=== PATIENT | male | born 1955 | race Caucasian/White ===

== ENCOUNTER 2018-05-15 00:28 | Inpatient (IN) ==
[2018-05-15] MEDS ORDERED: Thiamine Inj 100 MG in Sodium Chlor 0.9% Inj 100 ML IV.SIG ONE (03:33)
[2018-05-15 04:46] LABS: Baso # (Auto) 0.1 th/mm3 (0.0-0.2); Baso % (Auto) 0.5 % (0.0-2.0); Eos % (Auto) 0.2 % (0.0-4.0); Hematocrit 43.5 % (39.0-51.0); Hemoglobin 14.9 gm/dL (13.0-17.0); Lymph # (Auto) 3.6 th/mm3 (1.0-4.8); Lymph % (Auto) 19.8 % (9.0-44.0); Mean Corpuscular HGB Conc 34.3 % (32.0-36.0); Mean Corpuscular Hemoglobin 33.8 pg (27.0-34.0); Mean Corpuscular Volume 98.6 fL (80.0-100.0); Mean Platelet Volume 9.8 fL (7.0-11.0); Mono # (Auto) 1.9 th/mm3 (0.0-0.9); Mono % (Auto) 10.4 % (0.0-8.0); Neut # (Auto) 12.4 th/mm3 (1.8-7.7); Neut % (Auto) 69.1 % (16.0-70.0); Platelet Count 362 th/mm3 (150-450); Red Blood Count 4.41 mil/mm3 (4.50-5.90); Red Cell Distribution Width 12.8 % (11.6-17.2)
[2018-05-15 05:06] LABS: Alanine Aminotransferase 46 U/L (12-78); Albumin 4.1 g/dL (3.4-5.0); Anion Gap 14 meq/L (5-15); Aspartate Aminotransferase 31 U/L (15-37); Blood Urea Nitrogen 43 mg/dL (7-18); Calcium 9.8 mg/dL (8.5-10.1); Carbon Dioxide 22.7 meq/L (21.0-32.0); Chloride 105 meq/L (98-107); Glomerular Filtration Rate 38 mL/min (>89); Glucose,Random 125 mg/dL (74-106); Potassium 4.3 meq/L (3.5-5.1); Sodium 142 meq/L (136-145)
[2018-05-15 05:16] LABS: Alkaline Phosphatase 79 U/L (45-117); Thyroid Stimulating Hormone 0.526 uIU/mL (0.358-3.740); Total Protein 8.3 g/dL (6.4-8.2)
--- NOTE | 2018-05-15 06:28 | ED ---
HPI General Chief Complaint: Altered Mental Status Stated Complaint: Psych/VCFR Time Seen by Provider: 05/15/18 06:18 Source: patient and EMS Mode of arrival: ambulatory Limitations: no limitations History of Present Illness HPI Narrative: 62-year-old white male presents emergency department under [place] act by [employer]. Patient was found acutely confused this evening in his car. The patient here is not making any sense. He appears to be acutely confused/ psychotic. He is rambling and not making sense. He denies any suicidal or homicidal ideation. No more meaningful history is obtainable. Symptoms are severe. No alleviating factors. Unknown exacerbating factor. Related Data Home Medications Medication Instructions Recorded Confirmed No Known Home Medications 05/15/18 05/15/18 Allergies Allergy/AdvReac Type Severity Reaction Status Date / Time No Allergy Information Allergy Unverified 05/15/18 00:54 Available Review of Systems ROS Unobtainable unobtainable due to mental status PMFSH Medical History Medical History Medical history unknown (Acute) Social History Social History Substance History: No History of Abuse and Unable to Obtain Second Hand Smoke Exposure: No Smoking Status: Cognitive impairment How Often Do You Have a Drink Containing Alcohol: Unable to Obtain Recent Travel in [facility] within the Last 8 Weeks: Yes Recent Out of Country Travel within the Last 8 Weeks: No Immunization History Tetanus Immunization: <5 Years Hx Influenza Vaccine This Season: Yes Exam Narrative Exam Narrative: GENERAL: Well-nourished, well-developed patient. SKIN: Warm and dry. HEAD: Normocephalic and atraumatic. EYES: No scleral icterus. No injection or drainage. ENT: No nasal drainage noted. Mucous membranes pink. Airway patent. NECK: Supple, trachea midline. Moves head freely without obvious discomfort. CARDIOVASCULAR: Regular rate and rhythm without murmurs, gallops, or rubs. RESPIRATORY: Breath sounds equal bilaterally. No accessory muscle use. GASTROINTESTINAL: Abdomen soft, non-tender, nondistended. EXTREMITIES: No cyanosis or edema. BACK: Nontender without obvious deformity. No CVA tenderness. NEURO: Patient is alert and oriented. no sensorimotor deficits. Nonfocal. Normal speech. PSYCH: Patient is acutely psychotic and not making sense. Course Hospital Course: Patient is medically clear. I suspect his white count is from demargination. Reevaluation(s) Reevaluation #1: Patient awaiting psychiatric evaluation, initially brought in under [place] Act for acute altered mental status. The patient has been unable to provide a urine sample as he is uncooperative with RN instructions; if he is unable to provide a sample within the next 30 minutes, he will need to be straight cathed. BUN/ creat elevated (unclear if this is baseline), WBCs 18K but afebrile, will add UA with reflex culture. Patient's speech is tangential and disorganized but he is easily re-directable. No home meds listed that need to be continued at this time. Time: 13:46 Initial Documented Vital Signs Temperature 97.9 F 05/15/18 00:45 Pulse Rate 76 05/15/18 00:45 Respiratory Rate 16 05/15/18 00:45 Blood Pressure 150/118 H 05/15/18 00:45 Pulse Oximetry 100 05/15/18 00:45 Last Documented Vital Signs Temperature 97.4 F L 05/17/18 09:10 Pulse Rate 68 05/17/18 09:10 Respiratory Rate 20 05/17/18 09:10 Blood Pressure 148/62 H 05/17/18 09:10 Pulse Oximetry 100 05/17/18 09:10 Medical Decision Making MDM Narrative Medical decision making narrative: MDM: High Differential diagnoses: Schizophrenia, schizoaffective disorder, bipolar, anxiety, depression, adjustment reaction, mood disorder NOS, ODD, depressive disorder NOS, dementia, dementia with agitation, psychosis NOS, substance induced mood disorder, DMDD, Asperger syndrome, infection,electrolyte abnormality, malingering. Mental health screening discussed with the patient. Psychiatric screen ordered. Lab Data Result diagrams: 05/17/18 06:45 05/17/18 06:45 Lab Results 05/15/18 05/15/18 05/15/18 Range/Units 04:35 04:35 04:35 WBC 18.0 H (4.0-11.0) th/mm3 RBC 4.41 L (4.50-5.90) mil/mm3 Hgb 14.9 (13.0-17.0) gm/dL Hct 43.5 (39.0-51.0) % MCV 98.6 (80.0-100.0) fL MCH 33.8 (27.0-34.0) pg MCHC 34.3 (32.0-36.0) % RDW 12.8 (11.6-17.2) % Plt Count 362 (150-450) th/mm3 MPV 9.8 (7.0-11.0) fL Neut % (Auto) 69.1 (16.0-70.0) % Lymph % (Auto) 19.8 (9.0-44.0) % [place] % (Auto) 10.4 H (0.0-8.0) % Eos % (Auto) 0.2 (0.0-4.0) % Baso % (Auto) 0.5 (0.0-2.0) % Neut # (Auto) 12.4 H (1.8-7.7) th/mm3 Lymph # (Auto) 3.6 (1.0-4.8) th/mm3 [place] # (Auto) 1.9 H (0.0-0.9) th/mm3 Eos # (Auto) 0.0 (0.0-0.4) th/mm3 Baso # (Auto) 0.1 (0.0-0.2) th/mm3 WBC Differential . Differential Comment Auto diff final ESR (0-20) mm/hr PT (9.8-11.6) sec INR Ratio Puncture Site Patient Temperature O2 Saturation (90-100) % ABG pH (7.380-7.420) ABG pCO2 (38-42) mmHg ABG pO2 (61-120) mmHg ABG HCO3 (22-26) mmol/L ABG O2 Content (12.0-20.0) Vol % ABG Base Excess (-2-2) mmol/L ABG Methemoglobin (0-2) % Ortiz Test Hemoglobin (12.0-16.0) G/DL Carboxyhemoglobin (0-4) % O2 Delivery Device Inspired O2 % Critical Value Sodium 142 (136-145) meq/L Potassium 4.3 (3.5-5.1) meq/L Chloride 105 (98-107) meq/L Carbon Dioxide 22.7 (21.0-32.0) meq/L Anion Gap 14 (5-15) meq/L BUN 43 H (7-18) mg/dL Creatinine 1.80 H (0.60-1.30) mg/dL Estimated GFR 38 L (>89) mL/min POC Glucose (68-110) mg/dl Random Glucose 125 H (74-106) mg/dL Lactic Acid (0.4-2.0) mmol/L Calcium 9.8 (8.5-10.1) mg/dL Magnesium (1.5-2.5) mg/dL Total Bilirubin 1.0 (0.2-1.0) mg/dL AST 31 (15-37) U/L ALT 46 (12-78) U/L Alkaline Phosphatase 79 (45-117) U/L Ammonia (11-32) mcmol/L Total Creatine Kinase (39-308) U/L CK-MB (CK-2) (0.5-3.6) ng/mL CK-MB (CK-2) % (0.0-4.0) % Troponin I (0.02-0.05) ng/mL Total Protein 8.3 H (6.4-8.2) g/dL Albumin 4.1 (3.4-5.0) g/dL Vitamin B12 (193-986) pg/mL TSH 0.526 (0.358-3.740) uIU/mL Free T4 (0.76-1.46) ng/dL Urine Color (Yellw/Straw) Urine Clarity (Clear) Urine pH (5.0-8.5) Ur Specific [place] (1.002-1.035) Urine Protein (Neg-Trace) mg/dL Urine Glucose (UA) (Negative) mg/dL Urine Ketones (Negative) mg/dL Urine Occult Blood (Negative) Urine Nitrate (Negative) Urine Bilirubin (Negative) Urine Urobilinogen (Less than 2) mg/dL Ur Leukocyte Esterase (Negative) Urine WBC (0-5) /hpf Urine Bacteria (None) /hpf Hyaline Casts (0-3) /lpf Urine Mucus (Occasional) /lpf Micro UA Comment Urine Culture Comments Urine Osmolality (300-1300) mosm/kg Ur Random Creatinine (27-300) mg/dL Ur Random Sodium meq/L CSF Volume (1) mL CSF Supernat Color (1) (Clear) CSF Gross Blood (1) (0) CSF Volume (2) mL CSF Supernat Color (2) (Clear) CSF Gross Blood (2) (0) CSF Volume (3) mL CSF Supernat Color (3) (Clear) CSF Gross Blood (3) (0) CSF Volume (4) mL CSF Supernat Color (4) (Clear) CSF Gross Blood (4) (0) CSF WBC (4) (0-10) /mm3 CSF RBC (4) (None) /mm3 CSF Neutrophils % % CSF Lymphocytes % % CSF Monocytes % % CSF Glucose (40-80) mg/dL CSF Total Protein (15.0-45.0) mg/dL CSF N.mening B/E.coli K1 CSF N.meningitidis A/Y Random Vancomycin Comment Urine Opiates Screen (Neg) Acetaminophen Less than 2.0 L (10.0-30.0) mcg/mL Ur Barbiturates Screen (Neg) Ur Amphetamines Screen (Neg) U Benzodiazepines Scrn (Neg) Urine Cocaine Screen (Neg) U Cannabinoids Screen (Neg) Serum Alcohol Less than 3 (0-5) mg/dL Bacterial Ag Source H.influenzae Type B Ag N. meningitidis C/W 135 Group B Strep Antigen S. pneumoniae Antigen 05/16/18 05/16/18 05/16/18 Range/Units 09:20 09:20 09:20 WBC (4.0-11.0) th/mm3 RBC (4.50-5.90) mil/mm3 Hgb (13.0-17.0) gm/dL Hct (39.0-51.0) % MCV (80.0-100.0) fL MCH (27.0-34.0) pg MCHC (32.0-36.0) % RDW (11.6-17.2) % Plt Count (150-450) th/mm3 MPV (7.0-11.0) fL Neut % (Auto) (16.0-70.0) % Lymph % (Auto) (9.0-44.0) % [place] % (Auto) (0.0-8.0) % Eos % (Auto) (0.0-4.0) % Baso % (Auto) (0.0-2.0) % Neut # (Auto) (1.8-7.7) th/mm3 Lymph # (Auto) (1.0-4.8) th/mm3 [place] # (Auto) (0.0-0.9) th/mm3 Eos # (Auto) (0.0-0.4) th/mm3 Baso # (Auto) (0.0-0.2) th/mm3 WBC Differential Differential Comment ESR (0-20) mm/hr PT (9.8-11.6) sec INR Ratio Puncture Site Patient Temperature O2 Saturation (90-100) % ABG pH (7.380-7.420) ABG pCO2 (38-42) mmHg ABG pO2 (61-120) mmHg ABG HCO3 (22-26) mmol/L ABG O2 Content (12.0-20.0) Vol % ABG Base Excess (-2-2) mmol/L ABG Methemoglobin (0-2) % Ortiz Test Hemoglobin (12.0-16.0) G/DL Carboxyhemoglobin (0-4) % O2 Delivery Device Inspired O2 % Critical Value Sodium (136-145) meq/L Potassium (3.5-5.1) meq/L Chloride (98-107) meq/L Carbon Dioxide (21.0-32.0) meq/L Anion Gap (5-15) meq/L BUN (7-18) mg/dL Creatinine (0.60-1.30) mg/dL Estimated GFR (>89) mL/min POC Glucose (68-110) mg/dl Random Glucose (74-106) mg/dL Lactic Acid (0.4-2.0) mmol/L Calcium (8.5-10.1) mg/dL Magnesium (1.5-2.5) mg/dL Total Bilirubin (0.2-1.0) mg/dL AST (15-37) U/L ALT (12-78) U/L Alkaline Phosphatase (45-117) U/L Ammonia (11-32) mcmol/L Total Creatine Kinase (39-308) U/L CK-MB (CK-2) (0.5-3.6) ng/mL CK-MB (CK-2) % (0.0-4.0) % Troponin I (0.02-0.05) ng/mL Total Protein (6.4-8.2) g/dL Albumin (3.4-5.0) g/dL Vitamin B12 (193-986) pg/mL TSH (0.358-3.740) uIU/mL Free T4 (0.76-1.46) ng/dL Urine Color Yellow (Yellw/Straw) Urine Clarity Hazy H (Clear) Urine pH 5.0 (5.0-8.5) Ur Specific [place] 1.021 (1.002-1.035) Urine Protein 100 H (Neg-Trace) mg/dL Urine Glucose (UA) Negative (Negative) mg/dL Urine Ketones Trace (Negative) mg/dL Urine Occult Blood Negative (Negative) Urine Nitrate Negative (Negative) Urine Bilirubin Negative (Negative) Urine Urobilinogen 2.0 H (Less than 2) mg/dL Ur Leukocyte Esterase Negative (Negative) Urine WBC 2 (0-5) /hpf Urine Bacteria Occasional H (None) /hpf Hyaline Casts 13 (0-3) /lpf Urine Mucus Few H (Occasional) /lpf Micro UA Comment Cath-culture ind Urine Culture Comments Cath-cult indicated Urine Osmolality (300-1300) mosm/kg Ur Random Creatinine (27-300) mg/dL Ur Random Sodium 32 meq/L CSF Volume (1) mL CSF Supernat Color (1) (Clear) CSF Gross Blood (1) (0) CSF Volume (2) mL CSF Supernat Color (2) (Clear) CSF Gross Blood (2) (0) CSF Volume (3) mL CSF Supernat Color (3) (Clear) CSF Gross Blood (3) (0) CSF Volume (4) mL CSF Supernat Color (4) (Clear) CSF Gross Blood (4) (0) CSF WBC (4) (0-10) /mm3 CSF RBC (4) (None) /mm3 CSF Neutrophils % % CSF Lymphocytes % % CSF Monocytes % % CSF Glucose (40-80) mg/dL CSF Total Protein (15.0-45.0) mg/dL CSF N.mening B/E.coli K1 CSF N.meningitidis A/Y Random Vancomycin Comment Urine Opiates Screen Neg (Neg) Acetaminophen (10.0-30.0) mcg/mL Ur Barbiturates Screen Neg (Neg) Ur Amphetamines Screen Neg (Neg) U Benzodiazepines Scrn Neg (Neg) Urine Cocaine Screen Neg (Neg) U Cannabinoids Screen Neg (Neg) Serum Alcohol (0-5) mg/dL Bacterial Ag Source H.influenzae Type B Ag N. meningitidis C/W 135 Group B Strep Antigen S. pneumoniae Antigen 05/16/18 05/16/18 05/16/18 Range/Units 09:20 09:20 09:35 WBC 19.5 H (4.0-11.0) th/mm3 RBC 4.22 L (4.50-5.90) mil/mm3 Hgb 14.4 (13.0-17.0) gm/dL Hct 42.2 (39.0-51.0) % MCV 100.1 H (80.0-100.0) fL MCH 34.3 H (27.0-34.0) pg MCHC 34.2 (32.0-36.0) % RDW 13.1 (11.6-17.2) % Plt Count 359 (150-450) th/mm3 MPV 9.6 (7.0-11.0) fL Neut % (Auto) 68.3 (16.0-70.0) % Lymph % (Auto) 22.0 (9.0-44.0) % [place] % (Auto) 8.9 H (0.0-8.0) % Eos % (Auto) 0.3 (0.0-4.0) % Baso % (Auto) 0.5 (0.0-2.0) % Neut # (Auto) 13.4 H (1.8-7.7) th/mm3 Lymph # (Auto) 4.3 (1.0-4.8) th/mm3 [place] # (Auto) 1.7 H (0.0-0.9) th/mm3 Eos # (Auto) 0.1 (0.0-0.4) th/mm3 Baso # (Auto) 0.1 (0.0-0.2) th/mm3 WBC Differential . Differential Comment Auto diff final ESR (0-20) mm/hr PT (9.8-11.6) sec INR Ratio Puncture Site Patient Temperature O2 Saturation (90-100) % ABG pH (7.380-7.420) ABG pCO2 (38-42) mmHg ABG pO2 (61-120) mmHg ABG HCO3 (22-26) mmol/L ABG O2 Content (12.0-20.0) Vol % ABG Base Excess (-2-2) mmol/L ABG Methemoglobin (0-2) % Ortiz Test Hemoglobin (12.0-16.0) G/DL Carboxyhemoglobin (0-4) % O2 Delivery Device Inspired O2 % Critical Value Sodium (136-145) meq/L Potassium (3.5-5.1) meq/L Chloride (98-107) meq/L Carbon Dioxide (21.0-32.0) meq/L Anion Gap (5-15) meq/L BUN (7-18) mg/dL Creatinine (0.60-1.30) mg/dL Estimated GFR (>89) mL/min POC Glucose (68-110) mg/dl Random Glucose (74-106) mg/dL Lactic Acid (0.4-2.0) mmol/L Calcium (8.5-10.1) mg/dL Magnesium (1.5-2.5) mg/dL Total Bilirubin (0.2-1.0) mg/dL AST (15-37) U/L ALT (12-78) U/L Alkaline Phosphatase (45-117) U/L Ammonia (11-32) mcmol/L Total Creatine Kinase (39-308) U/L CK-MB (CK-2) (0.5-3.6) ng/mL CK-MB (CK-2) % (0.0-4.0) % Troponin I (0.02-0.05) ng/mL Total Protein (6.4-8.2) g/dL Albumin (3.4-5.0) g/dL Vitamin B12 (193-986) pg/mL TSH (0.358-3.740) uIU/mL Free T4 (0.76-1.46) ng/dL Urine Color (Yellw/Straw) Urine Clarity (Clear) Urine pH (5.0-8.5) Ur Specific [place] (1.002-1.035) Urine Protein (Neg-Trace) mg/dL Urine Glucose (UA) (Negative) mg/dL Urine Ketones (Negative) mg/dL Urine Occult Blood (Negative) Urine Nitrate (Negative) Urine Bilirubin (Negative) Urine Urobilinogen (Less than 2) mg/dL Ur Leukocyte Esterase (Negative) Urine WBC (0-5) /hpf Urine Bacteria (None) /hpf Hyaline Casts (0-3) /lpf Urine Mucus (Occasional) /lpf Micro UA Comment Urine Culture Comments Urine Osmolality 672 (300-1300) mosm/kg Ur Random Creatinine 246 (27-300) mg/dL Ur Random Sodium meq/L CSF Volume (1) mL CSF Supernat Color (1) (Clear) CSF Gross Blood (1) (0) CSF Volume (2) mL CSF Supernat Color (2) (Clear) CSF Gross Blood (2) (0) CSF Volume (3) mL CSF Supernat Color (3) (Clear) CSF Gross Blood (3) (0) CSF Volume (4) mL CSF Supernat Color (4) (Clear) CSF Gross Blood (4) (0) CSF WBC (4) (0-10) /mm3 CSF RBC (4) (None) /mm3 CSF Neutrophils % % CSF Lymphocytes % % CSF Monocytes % % CSF Glucose (40-80) mg/dL CSF Total Protein (15.0-45.0) mg/dL CSF N.mening B/E.coli K1 CSF N.meningitidis A/Y Random Vancomycin Comment Urine Opiates Screen (Neg) Acetaminophen (10.0-30.0) mcg/mL Ur Barbiturates Screen (Neg) Ur Amphetamines Screen (Neg) U Benzodiazepines Scrn (Neg) Urine Cocaine Screen (Neg) U Cannabinoids Screen (Neg) Serum Alcohol (0-5) mg/dL Bacterial Ag Source H.influenzae Type B Ag N. meningitidis C/W 135 Group B Strep Antigen S. pneumoniae Antigen 05/16/18 05/16/18 05/16/18 Range/Units 09:35 09:35 09:35 WBC (4.0-11.0) th/mm3 RBC (4.50-5.90) mil/mm3 Hgb (13.0-17.0) gm/dL Hct (39.0-51.0) % MCV (80.0-100.0) fL MCH (27.0-34.0) pg MCHC (32.0-36.0) % RDW (11.6-17.2) % Plt Count (150-450) th/mm3 MPV (7.0-11.0) fL Neut % (Auto) (16.0-70.0) % Lymph % (Auto) (9.0-44.0) % [place] % (Auto) (0.0-8.0) % Eos % (Auto) (0.0-4.0) % Baso % (Auto) (0.0-2.0) % Neut # (Auto) (1.8-7.7) th/mm3 Lymph # (Auto) (1.0-4.8) th/mm3 [place] # (Auto) (0.0-0.9) th/mm3 Eos # (Auto) (0.0-0.4) th/mm3 Baso # (Auto) (0.0-0.2) th/mm3 WBC Differential Differential Comment ESR (0-20) mm/hr PT 11.4 (9.8-11.6) sec INR 1.1 Ratio Puncture Site Patient Temperature O2 Saturation (90-100) % ABG pH (7.380-7.420) ABG pCO2 (38-42) mmHg ABG pO2 (61-120) mmHg ABG HCO3 (22-26) mmol/L ABG O2 Content (12.0-20.0) Vol % ABG Base Excess (-2-2) mmol/L ABG Methemoglobin (0-2) % Ortiz Test Hemoglobin (12.0-16.0) G/DL Carboxyhemoglobin (0-4) % O2 Delivery Device Inspired O2 % Critical Value Sodium 139 (136-145) meq/L Potassium 3.4 L D (3.5-5.1) meq/L Chloride 106 (98-107) meq/L Carbon Dioxide 20.2 L (21.0-32.0) meq/L Anion Gap 13 (5-15) meq/L BUN 60 H (7-18) mg/dL Creatinine 2.16 H (0.60-1.30) mg/dL Estimated GFR 31 L (>89) mL/min POC Glucose (68-110) mg/dl Random Glucose 117 H (74-106) mg/dL Lactic Acid 2.1 H (0.4-2.0) mmol/L Calcium 9.4 (8.5-10.1) mg/dL Magnesium 2.1 (1.5-2.5) mg/dL Total Bilirubin 0.9 (0.2-1.0) mg/dL AST 46 H (15-37) U/L ALT 46 (12-78) U/L Alkaline Phosphatase 75 (45-117) U/L Ammonia (11-32) mcmol/L Total Creatine Kinase 401 H (39-308) U/L CK-MB (CK-2) 12.1 H (0.5-3.6) ng/mL CK-MB (CK-2) % 3.0 (0.0-4.0) % Troponin I 0.11 H (0.02-0.05) ng/mL Total Protein 7.6 D (6.4-8.2) g/dL Albumin 3.7 (3.4-5.0) g/dL Vitamin B12 (193-986) pg/mL TSH (0.358-3.740) uIU/mL Free T4 (0.76-1.46) ng/dL Urine Color (Yellw/Straw) Urine Clarity (Clear) Urine pH (5.0-8.5) Ur Specific [place] (1.002-1.035) Urine Protein (Neg-Trace) mg/dL Urine Glucose (UA) (Negative) mg/dL Urine Ketones (Negative) mg/dL Urine Occult Blood (Negative) Urine Nitrate (Negative) Urine Bilirubin (Negative) Urine Urobilinogen (Less than 2) mg/dL Ur Leukocyte Esterase (Negative) Urine WBC (0-5) /hpf Urine Bacteria (None) /hpf Hyaline Casts (0-3) /lpf Urine Mucus (Occasional) /lpf Micro UA Comment Urine Culture Comments Urine Osmolality (300-1300) mosm/kg Ur Random Creatinine (27-300) mg/dL Ur Random Sodium meq/L CSF Volume (1) mL CSF Supernat Color (1) (Clear) CSF Gross Blood (1) (0) CSF Volume (2) mL CSF Supernat Color (2) (Clear) CSF Gross Blood (2) (0) CSF Volume (3) mL CSF Supernat Color (3) (Clear) CSF Gross Blood (3) (0) CSF Volume (4) mL CSF Supernat Color (4) (Clear) CSF Gross Blood (4) (0) CSF WBC (4) (0-10) /mm3 CSF RBC (4) (None) /mm3 CSF Neutrophils % % CSF Lymphocytes % % CSF Monocytes % % CSF Glucose (40-80) mg/dL CSF Total Protein (15.0-45.0) mg/dL CSF N.mening B/E.coli K1 CSF N.meningitidis A/Y Random Vancomycin Comment Urine Opiates Screen (Neg) Acetaminophen (10.0-30.0) mcg/mL Ur Barbiturates Screen (Neg) Ur Amphetamines Screen (Neg) U Benzodiazepines Scrn (Neg) Urine Cocaine Screen (Neg) U Cannabinoids Screen (Neg) Serum Alcohol (0-5) mg/dL Bacterial Ag Source H.influenzae Type B Ag N. meningitidis C/W 135 Group B Strep Antigen S. pneumoniae Antigen 05/16/18 05/16/18 05/16/18 Range/Units 09:35 10:04 12:21 WBC (4.0-11.0) th/mm3 RBC (4.50-5.90) mil/mm3 Hgb (13.0-17.0) gm/dL Hct (39.0-51.0) % MCV (80.0-100.0) fL MCH (27.0-34.0) pg MCHC (32.0-36.0) % RDW (11.6-17.2) % Plt Count (150-450) th/mm3 MPV (7.0-11.0) fL Neut % (Auto) (16.0-70.0) % Lymph % (Auto) (9.0-44.0) % [place] % (Auto) (0.0-8.0) % Eos % (Auto) (0.0-4.0) % Baso % (Auto) (0.0-2.0) % Neut # (Auto) (1.8-7.7) th/mm3 Lymph # (Auto) (1.0-4.8) th/mm3 [place] # (Auto) (0.0-0.9) th/mm3 Eos # (Auto) (0.0-0.4) th/mm3 Baso # (Auto) (0.0-0.2) th/mm3 WBC Differential Differential Comment ESR (0-20) mm/hr PT (9.8-11.6) sec INR Ratio Puncture Site Patient Temperature O2 Saturation (90-100) % ABG pH (7.380-7.420) ABG pCO2 (38-42) mmHg ABG pO2 (61-120) mmHg ABG HCO3 (22-26) mmol/L ABG O2 Content (12.0-20.0) Vol % ABG Base Excess (-2-2) mmol/L ABG Methemoglobin (0-2) % Ortiz Test Hemoglobin (12.0-16.0) G/DL Carboxyhemoglobin (0-4) % O2 Delivery Device Inspired O2 % Critical Value Sodium (136-145) meq/L Potassium (3.5-5.1) meq/L Chloride (98-107) meq/L Carbon Dioxide (21.0-32.0) meq/L Anion Gap (5-15) meq/L BUN (7-18) mg/dL Creatinine (0.60-1.30) mg/dL Estimated GFR (>89) mL/min POC Glucose 189 H (68-110) mg/dl Random Glucose (74-106) mg/dL Lactic Acid (0.4-2.0) mmol/L Calcium (8.5-10.1) mg/dL Magnesium (1.5-2.5) mg/dL Total Bilirubin (0.2-1.0) mg/dL AST (15-37) U/L ALT (12-78) U/L Alkaline Phosphatase (45-117) U/L Ammonia (11-32) mcmol/L Total Creatine Kinase (39-308) U/L CK-MB (CK-2) (0.5-3.6) ng/mL CK-MB (CK-2) % (0.0-4.0) % Troponin I (0.02-0.05) ng/mL Total Protein (6.4-8.2) g/dL Albumin (3.4-5.0) g/dL Vitamin B12 (193-986) pg/mL TSH 1.020 (0.358-3.740) uIU/mL Free T4 (0.76-1.46) ng/dL Urine Color (Yellw/Straw) Urine Clarity (Clear) Urine pH (5.0-8.5) Ur Specific [place] (1.002-1.035) Urine Protein (Neg-Trace) mg/dL Urine Glucose (UA) (Negative) mg/dL Urine Ketones (Negative) mg/dL Urine Occult Blood (Negative) Urine Nitrate (Negative) Urine Bilirubin (Negative) Urine Urobilinogen (Less than 2) mg/dL Ur Leukocyte Esterase (Negative) Urine WBC (0-5) /hpf Urine Bacteria (None) /hpf Hyaline Casts (0-3) /lpf Urine Mucus (Occasional) /lpf Micro UA Comment Urine Culture Comments Urine Osmolality (300-1300) mosm/kg Ur Random Creatinine (27-300) mg/dL Ur Random Sodium meq/L CSF Volume (1) mL CSF Supernat Color (1) (Clear) CSF Gross Blood (1) (0) CSF Volume (2) mL CSF Supernat Color (2) (Clear) CSF Gross Blood (2) (0) CSF Volume (3) mL CSF Supernat Color (3) (Clear) CSF Gross Blood (3) (0) CSF Volume (4) mL CSF Supernat Color (4) (Clear) CSF Gross Blood (4) (0) CSF WBC (4) (0-10) /mm3 CSF RBC (4) (None) /mm3 CSF Neutrophils % % CSF Lymphocytes % % CSF Monocytes % % CSF Glucose (40-80) mg/dL CSF Total Protein (15.0-45.0) mg/dL CSF N.mening B/E.coli K1 Cancelled CSF N.meningitidis A/Y Cancelled Random Vancomycin Comment Urine Opiates Screen (Neg) Acetaminophen (10.0-30.0) mcg/mL Ur Barbiturates Screen (Neg) Ur Amphetamines Screen (Neg) U Benzodiazepines Scrn (Neg) Urine Cocaine Screen (Neg) U Cannabinoids Screen (Neg) Serum Alcohol (0-5) mg/dL Bacterial Ag Source Cancelled H.influenzae Type B Ag Cancelled N. meningitidis C/W 135 Cancelled Group B Strep Antigen Cancelled S. pneumoniae Antigen Cancelled 05/16/18 05/16/18 05/16/18 Range/Units 12:21 12:21 12:21 WBC (4.0-11.0) th/mm3 RBC (4.50-5.90) mil/mm3 Hgb (13.0-17.0) gm/dL Hct (39.0-51.0) % MCV (80.0-100.0) fL MCH (27.0-34.0) pg MCHC (32.0-36.0) % RDW (11.6-17.2) % Plt Count (150-450) th/mm3 MPV (7.0-11.0) fL Neut % (Auto) (16.0-70.0) % Lymph % (Auto) (9.0-44.0) % [place] % (Auto) (0.0-8.0) % Eos % (Auto) (0.0-4.0) % Baso % (Auto) (0.0-2.0) % Neut # (Auto) (1.8-7.7) th/mm3 Lymph # (Auto) (1.0-4.8) th/mm3 [place] # (Auto) (0.0-0.9) th/mm3 Eos # (Auto) (0.0-0.4) th/mm3 Baso # (Auto) (0.0-0.2) th/mm3 WBC Differential Differential Comment ESR (0-20) mm/hr PT (9.8-11.6) sec INR Ratio Puncture Site Patient Temperature O2 Saturation (90-100) % ABG pH (7.380-7.420) ABG pCO2 (38-42) mmHg ABG pO2 (61-120) mmHg ABG HCO3 (22-26) mmol/L ABG O2 Content (12.0-20.0) Vol % ABG Base Excess (-2-2) mmol/L ABG Methemoglobin (0-2) % Ortiz Test Hemoglobin (12.0-16.0) G/DL Carboxyhemoglobin (0-4) % O2 Delivery Device Inspired O2 % Critical Value Sodium (136-145) meq/L Potassium (3.5-5.1) meq/L Chloride (98-107) meq/L Carbon Dioxide (21.0-32.0) meq/L Anion Gap (5-15) meq/L BUN (7-18) mg/dL Creatinine (0.60-1.30) mg/dL Estimated GFR (>89) mL/min POC Glucose (68-110) mg/dl Random Glucose (74-106) mg/dL Lactic Acid (0.4-2.0) mmol/L Calcium (8.5-10.1) mg/dL Magnesium (1.5-2.5) mg/dL Total Bilirubin (0.2-1.0) mg/dL AST (15-37) U/L ALT (12-78) U/L Alkaline Phosphatase (45-117) U/L Ammonia (11-32) mcmol/L Total Creatine Kinase (39-308) U/L CK-MB (CK-2) (0.5-3.6) ng/mL CK-MB (CK-2) % (0.0-4.0) % Troponin I (0.02-0.05) ng/mL Total Protein (6.4-8.2) g/dL Albumin (3.4-5.0) g/dL Vitamin B12 (193-986) pg/mL TSH (0.358-3.740) uIU/mL Free T4 (0.76-1.46) ng/dL Urine Color (Yellw/Straw) Urine Clarity (Clear) Urine pH (5.0-8.5) Ur Specific [place] (1.002-1.035) Urine Protein (Neg-Trace) mg/dL Urine Glucose (UA) (Negative) mg/dL Urine Ketones (Negative) mg/dL Urine Occult Blood (Negative) Urine Nitrate (Negative) Urine Bilirubin (Negative) Urine Urobilinogen (Less than 2) mg/dL Ur Leukocyte Esterase (Negative) Urine WBC (0-5) /hpf Urine Bacteria (None) /hpf Hyaline Casts (0-3) /lpf Urine Mucus (Occasional) /lpf Micro UA Comment Urine Culture Comments Urine Osmolality (300-1300) mosm/kg Ur Random Creatinine (27-300) mg/dL Ur Random Sodium meq/L CSF Volume (1) 2.9 mL CSF Supernat Color (1) Clear (Clear) CSF Gross Blood (1) Trace A (0) CSF Volume (2) 2.9 mL CSF Supernat Color (2) Clear (Clear) CSF Gross Blood (2) 0 (0) CSF Volume (3) 2.9 mL CSF Supernat Color (3) Clear (Clear) CSF Gross Blood (3) 0 (0) CSF Volume (4) 7.5 mL CSF Supernat Color (4) Clear (Clear) CSF Gross Blood (4) 0 (0) CSF WBC (4) 10 (0-10) /mm3 CSF RBC (4) 0 (None) /mm3 CSF Neutrophils % 0 % CSF Lymphocytes % 88 % CSF Monocytes % 12 % CSF Glucose 69 (40-80) mg/dL CSF Total Protein 72.5 H (15.0-45.0) mg/dL CSF N.mening B/E.coli K1 CSF N.meningitidis A/Y Random Vancomycin Comment Urine Opiates Screen (Neg) Acetaminophen (10.0-30.0) mcg/mL Ur Barbiturates Screen (Neg) Ur Amphetamines Screen (Neg) U Benzodiazepines Scrn (Neg) Urine Cocaine Screen (Neg) U Cannabinoids Screen (Neg) Serum Alcohol (0-5) mg/dL Bacterial Ag Source H.influenzae Type B Ag N. meningitidis C/W 135 Group B Strep Antigen S. pneumoniae Antigen 05/16/18 05/17/18 05/17/18 Range/Units 22:20 00:36 06:45 WBC (4.0-11.0) th/mm3 RBC (4.50-5.90) mil/mm3 Hgb (13.0-17.0) gm/dL Hct (39.0-51.0) % MCV (80.0-100.0) fL MCH (27.0-34.0) pg MCHC (32.0-36.0) % RDW (11.6-17.2) % Plt Count (150-450) th/mm3 MPV (7.0-11.0) fL Neut % (Auto) (16.0-70.0) % Lymph % (Auto) (9.0-44.0) % [place] % (Auto) (0.0-8.0) % Eos % (Auto) (0.0-4.0) % Baso % (Auto) (0.0-2.0) % Neut # (Auto) (1.8-7.7) th/mm3 Lymph # (Auto) (1.0-4.8) th/mm3 [place] # (Auto) (0.0-0.9) th/mm3 Eos # (Auto) (0.0-0.4) th/mm3 Baso # (Auto) (0.0-0.2) th/mm3 WBC Differential Differential Comment ESR (0-20) mm/hr PT (9.8-11.6) sec INR Ratio Puncture Site Right radial Patient Temperature 98.6 O2 Saturation 84 L* (90-100) % ABG pH 7.40 (7.380-7.420) ABG pCO2 35 L (38-42) mmHg ABG pO2 53 L* (61-120) mmHg ABG HCO3 21 L (22-26) mmol/L ABG O2 Content 14.7 (12.0-20.0) Vol % ABG Base Excess -2.8 L (-2-2) mmol/L ABG Methemoglobin 1.3 (0-2) % Ortiz Test Present Hemoglobin 12.4 (12.0-16.0) G/DL Carboxyhemoglobin 1.1 (0-4) % O2 Delivery Device Room air Inspired O2 21 % Critical Value Yes Sodium (136-145) meq/L Potassium (3.5-5.1) meq/L Chloride (98-107) meq/L Carbon Dioxide (21.0-32.0) meq/L Anion Gap (5-15) meq/L BUN (7-18) mg/dL Creatinine (0.60-1.30) mg/dL Estimated GFR (>89) mL/min POC Glucose 128 H (68-110) mg/dl Random Glucose (74-106) mg/dL Lactic Acid (0.4-2.0) mmol/L Calcium (8.5-10.1) mg/dL Magnesium (1.5-2.5) mg/dL Total Bilirubin (0.2-1.0) mg/dL AST (15-37) U/L ALT (12-78) U/L Alkaline Phosphatase (45-117) U/L Ammonia 42 H (11-32) mcmol/L Total Creatine Kinase (39-308) U/L CK-MB (CK-2) (0.5-3.6) ng/mL CK-MB (CK-2) % (0.0-4.0) % Troponin I (0.02-0.05) ng/mL Total Protein (6.4-8.2) g/dL Albumin (3.4-5.0) g/dL Vitamin B12 (193-986) pg/mL TSH (0.358-3.740) uIU/mL Free T4 (0.76-1.46) ng/dL Urine Color (Yellw/Straw) Urine Clarity (Clear) Urine pH (5.0-8.5) Ur Specific [place] (1.002-1.035) Urine Protein (Neg-Trace) mg/dL Urine Glucose (UA) (Negative) mg/dL Urine Ketones (Negative) mg/dL Urine Occult Blood (Negative) Urine Nitrate (Negative) Urine Bilirubin (Negative) Urine Urobilinogen (Less than 2) mg/dL Ur Leukocyte Esterase (Negative) Urine WBC (0-5) /hpf Urine Bacteria (None) /hpf Hyaline Casts (0-3) /lpf Urine Mucus (Occasional) /lpf Micro UA Comment Urine Culture Comments Urine Osmolality (300-1300) mosm/kg Ur Random Creatinine (27-300) mg/dL Ur Random Sodium meq/L CSF Volume (1) mL CSF Supernat Color (1) (Clear) CSF Gross Blood (1) (0) CSF Volume (2) mL CSF Supernat Color (2) (Clear) CSF Gross Blood (2) (0) CSF Volume (3) mL CSF Supernat Color (3) (Clear) CSF Gross Blood (3) (0) CSF Volume (4) mL CSF Supernat Color (4) (Clear) CSF Gross Blood (4) (0) CSF WBC (4) (0-10) /mm3 CSF RBC (4) (None) /mm3 CSF Neutrophils % % CSF Lymphocytes % % CSF Monocytes % % CSF Glucose (40-80) mg/dL CSF Total Protein (15.0-45.0) mg/dL CSF N.mening B/E.coli K1 CSF N.meningitidis A/Y Random Vancomycin Comment Urine Opiates Screen (Neg) Acetaminophen (10.0-30.0) mcg/mL Ur Barbiturates Screen (Neg) Ur Amphetamines Screen (Neg) U Benzodiazepines Scrn (Neg) Urine Cocaine Screen (Neg) U Cannabinoids Screen (Neg) Serum Alcohol (0-5) mg/dL Bacterial Ag Source H.influenzae Type B Ag N. meningitidis C/W 135 Group B Strep Antigen S. pneumoniae Antigen 05/17/18 05/17/18 05/17/18 Range/Units 06:45 06:45 06:45 WBC 15.9 H (4.0-11.0) th/mm3 RBC 3.94 L (4.50-5.90) mil/mm3 Hgb 13.4 (13.0-17.0) gm/dL Hct 39.2 (39.0-51.0) % MCV 99.6 (80.0-100.0) fL MCH 34.1 H (27.0-34.0) pg MCHC 34.3 (32.0-36.0) % RDW 12.8 (11.6-17.2) % Plt Count 278 (150-450) th/mm3 MPV 9.7 (7.0-11.0) fL Neut % (Auto) 72.4 H (16.0-70.0) % Lymph % (Auto) 18.7 (9.0-44.0) % [place] % (Auto) 7.9 (0.0-8.0) % Eos % (Auto) 0.5 (0.0-4.0) % Baso % (Auto) 0.5 (0.0-2.0) % Neut # (Auto) 11.5 H (1.8-7.7) th/mm3 Lymph # (Auto) 3.0 (1.0-4.8) th/mm3 [place] # (Auto) 1.3 H (0.0-0.9) th/mm3 Eos # (Auto) 0.1 (0.0-0.4) th/mm3 Baso # (Auto) 0.1 (0.0-0.2) th/mm3 WBC Differential . Differential Comment Auto diff final ESR 17 (0-20) mm/hr PT (9.8-11.6) sec INR Ratio Puncture Site Patient Temperature O2 Saturation (90-100) % ABG pH (7.380-7.420) ABG pCO2 (38-42) mmHg ABG pO2 (61-120) mmHg ABG HCO3 (22-26) mmol/L ABG O2 Content (12.0-20.0) Vol % ABG Base Excess (-2-2) mmol/L ABG Methemoglobin (0-2) % Ortiz Test Hemoglobin (12.0-16.0) G/DL Carboxyhemoglobin (0-4) % O2 Delivery Device Inspired O2 % Critical Value Sodium (136-145) meq/L Potassium (3.5-5.1) meq/L Chloride (98-107) meq/L Carbon Dioxide (21.0-32.0) meq/L Anion Gap (5-15) meq/L BUN (7-18) mg/dL Creatinine (0.60-1.30) mg/dL Estimated GFR (>89) mL/min POC Glucose (68-110) mg/dl Random Glucose (74-106) mg/dL Lactic Acid 1.8 (0.4-2.0) mmol/L Calcium (8.5-10.1) mg/dL Magnesium (1.5-2.5) mg/dL Total Bilirubin (0.2-1.0) mg/dL AST (15-37) U/L ALT (12-78) U/L Alkaline Phosphatase (45-117) U/L Ammonia (11-32) mcmol/L Total Creatine Kinase (39-308) U/L CK-MB (CK-2) (0.5-3.6) ng/mL CK-MB (CK-2) % (0.0-4.0) % Troponin I (0.02-0.05) ng/mL Total Protein (6.4-8.2) g/dL Albumin (3.4-5.0) g/dL Vitamin B12 (193-986) pg/mL TSH (0.358-3.740) uIU/mL Free T4 (0.76-1.46) ng/dL Urine Color (Yellw/Straw) Urine Clarity (Clear) Urine pH (5.0-8.5) Ur Specific [place] (1.002-1.035) Urine Protein (Neg-Trace) mg/dL Urine Glucose (UA) (Negative) mg/dL Urine Ketones (Negative) mg/dL Urine Occult Blood (Negative) Urine Nitrate (Negative) Urine Bilirubin (Negative) Urine Urobilinogen (Less than 2) mg/dL Ur Leukocyte Esterase (Negative) Urine WBC (0-5) /hpf Urine Bacteria (None) /hpf Hyaline Casts (0-3) /lpf Urine Mucus (Occasional) /lpf Micro UA Comment Urine Culture Comments Urine Osmolality (300-1300) mosm/kg Ur Random Creatinine (27-300) mg/dL Ur Random Sodium meq/L CSF Volume (1) mL CSF Supernat Color (1) (Clear) CSF Gross Blood (1) (0) CSF Volume (2) mL CSF Supernat Color (2) (Clear) CSF Gross Blood (2) (0) CSF Volume (3) mL CSF Supernat Color (3) (Clear) CSF Gross Blood (3) (0) CSF Volume (4) mL CSF Supernat Color (4) (Clear) CSF Gross Blood (4) (0) CSF WBC (4) (0-10) /mm3 CSF RBC (4) (None) /mm3 CSF Neutrophils % % CSF Lymphocytes % % CSF Monocytes % % CSF Glucose (40-80) mg/dL CSF Total Protein (15.0-45.0) mg/dL CSF N.mening B/E.coli K1 CSF N.meningitidis A/Y Random Vancomycin Comment Urine Opiates Screen (Neg) Acetaminophen (10.0-30.0) mcg/mL Ur Barbiturates Screen (Neg) Ur Amphetamines Screen (Neg) U Benzodiazepines Scrn (Neg) Urine Cocaine Screen (Neg) U Cannabinoids Screen (Neg) Serum Alcohol (0-5) mg/dL Bacterial Ag Source H.influenzae Type B Ag N. meningitidis C/W 135 Group B Strep Antigen S. pneumoniae Antigen 05/17/18 05/17/18 Range/Units 06:45 06:45 WBC (4.0-11.0) th/mm3 RBC (4.50-5.90) mil/mm3 Hgb (13.0-17.0) gm/dL Hct (39.0-51.0) % MCV (80.0-100.0) fL MCH (27.0-34.0) pg MCHC (32.0-36.0) % RDW (11.6-17.2) % Plt Count (150-450) th/mm3 MPV (7.0-11.0) fL Neut % (Auto) (16.0-70.0) % Lymph % (Auto) (9.0-44.0) % [place] % (Auto) (0.0-8.0) % Eos % (Auto) (0.0-4.0) % Baso % (Auto) (0.0-2.0) % Neut # (Auto) (1.8-7.7) th/mm3 Lymph # (Auto) (1.0-4.8) th/mm3 [place] # (Auto) (0.0-0.9) th/mm3 Eos # (Auto) (0.0-0.4) th/mm3 Baso # (Auto) (0.0-0.2) th/mm3 WBC Differential Differential Comment ESR (0-20) mm/hr PT 11.3 (9.8-11.6) sec INR 1.1 Ratio Puncture Site Patient Temperature O2 Saturation (90-100) % ABG pH (7.380-7.420) ABG pCO2 (38-42) mmHg ABG pO2 (61-120) mmHg ABG HCO3 (22-26) mmol/L ABG O2 Content (12.0-20.0) Vol % ABG Base Excess (-2-2) mmol/L ABG Methemoglobin (0-2) % Ortiz Test Hemoglobin (12.0-16.0) G/DL Carboxyhemoglobin (0-4) % O2 Delivery Device Inspired O2 % Critical Value Sodium 147 H (136-145) meq/L Potassium 3.5 (3.5-5.1) meq/L Chloride 115 H D (98-107) meq/L Carbon Dioxide 22.2 (21.0-32.0) meq/L Anion Gap 10 (5-15) meq/L BUN 47 H (7-18) mg/dL Creatinine 1.68 H (0.60-1.30) mg/dL Estimated GFR 42 L (>89) mL/min POC Glucose (68-110) mg/dl Random Glucose 84 (74-106) mg/dL Lactic Acid (0.4-2.0) mmol/L Calcium 8.7 (8.5-10.1) mg/dL Magnesium (1.5-2.5) mg/dL Total Bilirubin 1.0 (0.2-1.0) mg/dL AST 40 H (15-37) U/L ALT 38 (12-78) U/L Alkaline Phosphatase 65 (45-117) U/L Ammonia (11-32) mcmol/L Total Creatine Kinase (39-308) U/L CK-MB (CK-2) (0.5-3.6) ng/mL CK-MB (CK-2) % (0.0-4.0) % Troponin I 0.09 H (0.02-0.05) ng/mL Total Protein 6.7 D (6.4-8.2) g/dL Albumin 3.4 (3.4-5.0) g/dL Vitamin B12 692 (193-986) pg/mL TSH (0.358-3.740) uIU/mL Free T4 1.42 (0.76-1.46) ng/dL Urine Color (Yellw/Straw) Urine Clarity (Clear) Urine pH (5.0-8.5) Ur Specific [place] (1.002-1.035) Urine Protein (Neg-Trace) mg/dL Urine Glucose (UA) (Negative) mg/dL Urine Ketones (Negative) mg/dL Urine Occult Blood (Negative) Urine Nitrate (Negative) Urine Bilirubin (Negative) Urine Urobilinogen (Less than 2) mg/dL Ur Leukocyte Esterase (Negative) Urine WBC (0-5) /hpf Urine Bacteria (None) /hpf Hyaline Casts (0-3) /lpf Urine Mucus (Occasional) /lpf Micro UA Comment Urine Culture Comments Urine Osmolality (300-1300) mosm/kg Ur Random Creatinine (27-300) mg/dL Ur Random Sodium meq/L CSF Volume (1) mL CSF Supernat Color (1) (Clear) CSF Gross Blood (1) (0) CSF Volume (2) mL CSF Supernat Color (2) (Clear) CSF Gross Blood (2) (0) CSF Volume (3) mL CSF Supernat Color (3) (Clear) CSF Gross Blood (3) (0) CSF Volume (4) mL CSF Supernat Color (4) (Clear) CSF Gross Blood (4) (0) CSF WBC (4) (0-10) /mm3 CSF RBC (4) (None) /mm3 CSF Neutrophils % % CSF Lymphocytes % % CSF Monocytes % % CSF Glucose (40-80) mg/dL CSF Total Protein (15.0-45.0) mg/dL CSF N.mening B/E.coli K1 CSF N.meningitidis A/Y Random Vancomycin 3.3 Comment Urine Opiates Screen (Neg) Acetaminophen (10.0-30.0) mcg/mL Ur Barbiturates Screen (Neg) Ur Amphetamines Screen (Neg) U Benzodiazepines Scrn (Neg) Urine Cocaine Screen (Neg) U Cannabinoids Screen (Neg) Serum Alcohol (0-5) mg/dL Bacterial Ag Source H.influenzae Type B Ag N. meningitidis C/W 135 Group B Strep Antigen S. pneumoniae Antigen Imaging Data Radiologist's impression: Carotid Doppler Study 05/16/18 00:00 CONCLUSION: 1. Right Internal Carotid Artery: Findings indicate >70% stenosis, but less than near occlusion. 2. Left Internal Carotid Artery: Findings indicate <50% stenosis. Chest X-Ray 05/16/18 09:13 CONCLUSION: No acute cardiopulmonary disease. There is no evidence of pneumonia. Head CT 05/16/18 09:15 CONCLUSION: 1. Negative noncontrast head CT. Lumbar Puncture Fluoroscopy 05/16/18 10:18 CONCLUSION: 1. Uncomplicated fluoroscopically guided lumbar puncture. Abdomen X-Ray 05/17/18 00:00 CONCLUSION: Status post multilevel lumbar fusion with no MR incompatible hardware identified. Head MRI 05/17/18 00:00 CONCLUSION: 1. Minimal periventricular white matter changes otherwise negative for acute process. 2. Partially empty sella 3. Moderate motion artifact is present. Discharge Plan Discharge Disposition Patient Disposition: 30 Still Patient Discharge Condition Condition: Stable Discharge Details Diagnosis: Altered mental status, Acute kidney injury, SIRS (systemic inflammatory response syndrome), Lactic acidosis Physicians Team ED Provider: Lucrecia Lara ED Midlevel Provider: Christopher Kirby Primary Care Provider: UNKNOWN, Attending Provider: Tsering Ray Status ED Status: Left Department Discharge Information Discharge Date/Time: 05/16/18 13:56
[2018-05-15] MEDS ORDERED: Haloperidol Inj 5 MG/ML Ampul IM ONE (19:28)
[2018-05-16] MEDS ORDERED: Haloperidol Inj 5 MG/ML Ampul IM ONE (02:43)
[2018-05-16] MEDS ORDERED: Sod Chloride 0.9% Inj 1,000 ML IV.SIG SCH (09:15)
[2018-05-16] MEDS ORDERED: Sod Chloride 0.9% Inj 700 ML IV.SIG SCH (09:15)
--- NOTE | 2018-05-16 09:33 | ED ---
HPI General Chief complaint: Altered Mental Status Stated complaint: Psych/VCFR Time Seen by Provider: 05/15/18 06:18 Source: RN notes reviewed and old records reviewed Mode of arrival: other (stretcher) Limitations: altered mental status History of Present Illness HPI narrative: 62yM sent from psychiatric unit ([facility]) for altered mental status. The patient was seen in the ED yesterday for altered mental status and confusion, had elevated BUN/ creat and leukocytosis, sent to psychiatric unit for evaluation. This morning, he was found to have worsening mental status and was sent back to the ED for evaluation. The patient is unable to contribute any meaningful contribution to HPI. Related Data Home Medications Medication Instructions Recorded Confirmed No Known Home Medications 05/15/18 05/15/18 Allergies Allergy/AdvReac Type Severity Reaction Status Date / Time No Allergy Information Allergy Unverified 05/15/18 00:54 Available Review of Systems ROS Unobtainable unobtainable due to mental status PMFSH History History Provided By: Patient Medical History Medical History Medical history unknown (Acute) Social History Social History Substance History: No History of Abuse Second Hand Smoke Exposure: No Smoking Status: Never smoker How Often Do You Have a Drink Containing Alcohol: Never Recent Travel in [facility] within the Last 8 Weeks: Yes Recent Out of Country Travel within the Last 8 Weeks: No Immunization History Tetanus Immunization: <5 Years Hx Influenza Vaccine This Season: Yes Exam Const Other: Somewhat combative, requires restraints to prevent harm to self or others and interference with medical treatment. Unable to answer any questions, speech nonsensical. HENMT Head: normocephalic and atraumatic Face and sinus: normal facial exam Eyes General: appearance normal, both eyes and all related structures Other: Pupils 3 mm and reactive bilaterally Chest Chest: normal inspection of the chest Resp Effort & Inspection: normal respiratory effort Auscultation: no rhonchi and no wheezes Cardio Rate: regular rate Rhythm: regular rhythm GI Inspection: non-distended Palpation: soft and nontender Skin General: no rashes or lesions noted Neuro General: alert and awake Other: Oriented to person but not place nor time Moving all extremities purposefully Appears confused Psych Other: Speech tangential, abusive, nonsensical, not pressured. The patient does not answer any questions appropriately. Bizarre affect. Limited judgement. Procedures EJ/Peripheral Line Arm R: Time Out Performed: Yes IV Secured and Dressing Applied: Yes Patient Tolerated Procedure: well Additional Comments: Skin prepared using Chloraprep. In the left brachial vein, using ultrasound guidance (CPT code 01789), a 20G peripheral IV was placed successfully by me secondary to difficulty placing IV by nursing staff. Successful. Two attempts. Good blood return. Good palpable flush. Adhered to skin using Tegaderm. Course Hospital Course: Patient is medically clear. I suspect his white count is from demargination. Initial Documented Vital Signs Temperature 97.9 F 05/15/18 00:45 Pulse Rate 76 05/15/18 00:45 Respiratory Rate 16 05/15/18 00:45 Blood Pressure 150/118 H 05/15/18 00:45 Pulse Oximetry 100 05/15/18 00:45 Last Documented Vital Signs Temperature 98.1 F 05/16/18 08:55 Pulse Rate 72 05/16/18 10:15 Respiratory Rate 19 05/16/18 10:15 Blood Pressure 134/68 05/16/18 10:15 Pulse Oximetry 100 05/16/18 10:15 Medical Decision Making MDM Narrative Medical decision making narrative: Assessment: 62yM presenting with altered mental status Plan: IV fluids Ativan for agitation. I performed a face to face evaluation and determined that this patient requires soft upper extremity bilateral restraints to prevent harm to self or others and interference with medical interventions. 1:1 observation. Labs, including blood cultures/ lactate Rose, UA and culture, UDS LFTs normal yesterday, low suspicion for hyperammonemia CXR CT head Patient is too combative to perform LP at this point, may require sedation/ IR LP if no alternate source of AMS is found Addendum: Patient found to have worsening RIMMA and leukocytosis, remains altered. I discussed the case with the family medicine residents, who will admit. Patient to go to IR for lumbar puncture, unable to consent due to encephalopathy, 2 physician consent signed and in chart. Differential Diagnosis Differential Diagnosis: Differential diagnosis includes, but is not limited to: toxic/ metabolic encephalopathy, sepsis, PNA, UTI, thyroid disease, intoxication / withdrawal, ICH, psychiatric illness Medical Records Medical records reviewed: Yes I reviewed the patient's medical records. Lab Data Lab results reviewed: Yes I reviewed the patient's lab results. Result diagrams: 05/16/18 09:35 05/16/18 09:35 Lab Results 05/15/18 05/15/18 05/16/18 Range/Units 04:35 04:35 09:20 WBC 18.0 H (4.0-11.0) th/mm3 RBC 4.41 L (4.50-5.90) mil/mm3 Hgb 14.9 (13.0-17.0) gm/dL Hct 43.5 (39.0-51.0) % MCV 98.6 (80.0-100.0) fL MCH 33.8 (27.0-34.0) pg MCHC 34.3 (32.0-36.0) % RDW 12.8 (11.6-17.2) % Plt Count 362 (150-450) th/mm3 MPV 9.8 (7.0-11.0) fL Neut % (Auto) 69.1 (16.0-70.0) % Lymph % (Auto) 19.8 (9.0-44.0) % Love % (Auto) 10.4 H (0.0-8.0) % Eos % (Auto) 0.2 (0.0-4.0) % Baso % (Auto) 0.5 (0.0-2.0) % Neut # (Auto) 12.4 H (1.8-7.7) th/mm3 Lymph # (Auto) 3.6 (1.0-4.8) th/mm3 Love # (Auto) 1.9 H (0.0-0.9) th/mm3 Eos # (Auto) 0.0 (0.0-0.4) th/mm3 Baso # (Auto) 0.1 (0.0-0.2) th/mm3 WBC Differential . Differential Comment Auto diff final PT (9.8-11.6) sec INR Ratio Sodium 142 (136-145) meq/L Potassium 4.3 (3.5-5.1) meq/L Chloride 105 (98-107) meq/L Carbon Dioxide 22.7 (21.0-32.0) meq/L Anion Gap 14 (5-15) meq/L BUN 43 H (7-18) mg/dL Creatinine 1.80 H (0.60-1.30) mg/dL Estimated GFR 38 L (>89) mL/min POC Glucose (68-110) mg/dl Random Glucose 125 H (74-106) mg/dL Lactic Acid (0.4-2.0) mmol/L Calcium 9.8 (8.5-10.1) mg/dL Magnesium (1.5-2.5) mg/dL Total Bilirubin 1.0 (0.2-1.0) mg/dL AST 31 (15-37) U/L ALT 46 (12-78) U/L Alkaline Phosphatase 79 (45-117) U/L Total Creatine Kinase (39-308) U/L CK-MB (CK-2) (0.5-3.6) ng/mL CK-MB (CK-2) % (0.0-4.0) % Troponin I (0.02-0.05) ng/mL Total Protein 8.3 H (6.4-8.2) g/dL Albumin 4.1 (3.4-5.0) g/dL TSH 0.526 (0.358-3.740) uIU/mL Urine Color (Yellw/Straw) Urine Clarity (Clear) Urine pH (5.0-8.5) Ur Specific [place] (1.002-1.035) Urine Protein (Neg-Trace) mg/dL Urine Glucose (UA) (Negative) mg/dL Urine Ketones (Negative) mg/dL Urine Occult Blood (Negative) Urine Nitrate (Negative) Urine Bilirubin (Negative) Urine Urobilinogen (Less than 2) mg/dL Ur Leukocyte Esterase (Negative) Urine WBC (0-5) /hpf Urine Bacteria (None) /hpf Hyaline Casts (0-3) /lpf Urine Mucus (Occasional) /lpf Micro UA Comment Urine Culture Comments Urine Opiates Screen Neg (Neg) Ur Barbiturates Screen Neg (Neg) Ur Amphetamines Screen Neg (Neg) U Benzodiazepines Scrn Neg (Neg) Urine Cocaine Screen Neg (Neg) U Cannabinoids Screen Neg (Neg) Serum Alcohol Less than 3 (0-5) mg/dL 05/16/18 05/16/18 05/16/18 Range/Units 09:20 09:35 09:35 WBC 19.5 H (4.0-11.0) th/mm3 RBC 4.22 L (4.50-5.90) mil/mm3 Hgb 14.4 (13.0-17.0) gm/dL Hct 42.2 (39.0-51.0) % MCV 100.1 H (80.0-100.0) fL MCH 34.3 H (27.0-34.0) pg MCHC 34.2 (32.0-36.0) % RDW 13.1 (11.6-17.2) % Plt Count 359 (150-450) th/mm3 MPV 9.6 (7.0-11.0) fL Neut % (Auto) 68.3 (16.0-70.0) % Lymph % (Auto) 22.0 (9.0-44.0) % Love % (Auto) 8.9 H (0.0-8.0) % Eos % (Auto) 0.3 (0.0-4.0) % Baso % (Auto) 0.5 (0.0-2.0) % Neut # (Auto) 13.4 H (1.8-7.7) th/mm3 Lymph # (Auto) 4.3 (1.0-4.8) th/mm3 Love # (Auto) 1.7 H (0.0-0.9) th/mm3 Eos # (Auto) 0.1 (0.0-0.4) th/mm3 Baso # (Auto) 0.1 (0.0-0.2) th/mm3 WBC Differential . Differential Comment Auto diff final PT 11.4 (9.8-11.6) sec INR 1.1 Ratio Sodium (136-145) meq/L Potassium (3.5-5.1) meq/L Chloride (98-107) meq/L Carbon Dioxide (21.0-32.0) meq/L Anion Gap (5-15) meq/L BUN (7-18) mg/dL Creatinine (0.60-1.30) mg/dL Estimated GFR (>89) mL/min POC Glucose (68-110) mg/dl Random Glucose (74-106) mg/dL Lactic Acid (0.4-2.0) mmol/L Calcium (8.5-10.1) mg/dL Magnesium (1.5-2.5) mg/dL Total Bilirubin (0.2-1.0) mg/dL AST (15-37) U/L ALT (12-78) U/L Alkaline Phosphatase (45-117) U/L Total Creatine Kinase (39-308) U/L CK-MB (CK-2) (0.5-3.6) ng/mL CK-MB (CK-2) % (0.0-4.0) % Troponin I (0.02-0.05) ng/mL Total Protein (6.4-8.2) g/dL Albumin (3.4-5.0) g/dL TSH (0.358-3.740) uIU/mL Urine Color Yellow (Yellw/Straw) Urine Clarity Hazy H (Clear) Urine pH 5.0 (5.0-8.5) Ur Specific [place] 1.021 (1.002-1.035) Urine Protein 100 H (Neg-Trace) mg/dL Urine Glucose (UA) Negative (Negative) mg/dL Urine Ketones Trace (Negative) mg/dL Urine Occult Blood Negative (Negative) Urine Nitrate Negative (Negative) Urine Bilirubin Negative (Negative) Urine Urobilinogen 2.0 H (Less than 2) mg/dL Ur Leukocyte Esterase Negative (Negative) Urine WBC 2 (0-5) /hpf Urine Bacteria Occasional H (None) /hpf Hyaline Casts 13 (0-3) /lpf Urine Mucus Few H (Occasional) /lpf Micro UA Comment Cath-culture ind Urine Culture Comments Cath-cult indicated Urine Opiates Screen (Neg) Ur Barbiturates Screen (Neg) Ur Amphetamines Screen (Neg) U Benzodiazepines Scrn (Neg) Urine Cocaine Screen (Neg) U Cannabinoids Screen (Neg) Serum Alcohol (0-5) mg/dL 05/16/18 05/16/18 05/16/18 Range/Units 09:35 09:35 09:35 WBC (4.0-11.0) th/mm3 RBC (4.50-5.90) mil/mm3 Hgb (13.0-17.0) gm/dL Hct (39.0-51.0) % MCV (80.0-100.0) fL MCH (27.0-34.0) pg MCHC (32.0-36.0) % RDW (11.6-17.2) % Plt Count (150-450) th/mm3 MPV (7.0-11.0) fL Neut % (Auto) (16.0-70.0) % Lymph % (Auto) (9.0-44.0) % Love % (Auto) (0.0-8.0) % Eos % (Auto) (0.0-4.0) % Baso % (Auto) (0.0-2.0) % Neut # (Auto) (1.8-7.7) th/mm3 Lymph # (Auto) (1.0-4.8) th/mm3 Love # (Auto) (0.0-0.9) th/mm3 Eos # (Auto) (0.0-0.4) th/mm3 Baso # (Auto) (0.0-0.2) th/mm3 WBC Differential Differential Comment PT (9.8-11.6) sec INR Ratio Sodium 139 (136-145) meq/L Potassium 3.4 L D (3.5-5.1) meq/L Chloride 106 (98-107) meq/L Carbon Dioxide 20.2 L (21.0-32.0) meq/L Anion Gap 13 (5-15) meq/L BUN 60 H (7-18) mg/dL Creatinine 2.16 H (0.60-1.30) mg/dL Estimated GFR 31 L (>89) mL/min POC Glucose (68-110) mg/dl Random Glucose 117 H (74-106) mg/dL Lactic Acid 2.1 H (0.4-2.0) mmol/L Calcium 9.4 (8.5-10.1) mg/dL Magnesium 2.1 (1.5-2.5) mg/dL Total Bilirubin 0.9 (0.2-1.0) mg/dL AST 46 H (15-37) U/L ALT 46 (12-78) U/L Alkaline Phosphatase 75 (45-117) U/L Total Creatine Kinase 401 H (39-308) U/L CK-MB (CK-2) 12.1 H (0.5-3.6) ng/mL CK-MB (CK-2) % 3.0 (0.0-4.0) % Troponin I 0.11 H (0.02-0.05) ng/mL Total Protein 7.6 D (6.4-8.2) g/dL Albumin 3.7 (3.4-5.0) g/dL TSH 1.020 (0.358-3.740) uIU/mL Urine Color (Yellw/Straw) Urine Clarity (Clear) Urine pH (5.0-8.5) Ur Specific [place] (1.002-1.035) Urine Protein (Neg-Trace) mg/dL Urine Glucose (UA) (Negative) mg/dL Urine Ketones (Negative) mg/dL Urine Occult Blood (Negative) Urine Nitrate (Negative) Urine Bilirubin (Negative) Urine Urobilinogen (Less than 2) mg/dL Ur Leukocyte Esterase (Negative) Urine WBC (0-5) /hpf Urine Bacteria (None) /hpf Hyaline Casts (0-3) /lpf Urine Mucus (Occasional) /lpf Micro UA Comment Urine Culture Comments Urine Opiates Screen (Neg) Ur Barbiturates Screen (Neg) Ur Amphetamines Screen (Neg) U Benzodiazepines Scrn (Neg) Urine Cocaine Screen (Neg) U Cannabinoids Screen (Neg) Serum Alcohol (0-5) mg/dL 05/16/18 Range/Units 10:04 WBC (4.0-11.0) th/mm3 RBC (4.50-5.90) mil/mm3 Hgb (13.0-17.0) gm/dL Hct (39.0-51.0) % MCV (80.0-100.0) fL MCH (27.0-34.0) pg MCHC (32.0-36.0) % RDW (11.6-17.2) % Plt Count (150-450) th/mm3 MPV (7.0-11.0) fL Neut % (Auto) (16.0-70.0) % Lymph % (Auto) (9.0-44.0) % Love % (Auto) (0.0-8.0) % Eos % (Auto) (0.0-4.0) % Baso % (Auto) (0.0-2.0) % Neut # (Auto) (1.8-7.7) th/mm3 Lymph # (Auto) (1.0-4.8) th/mm3 Love # (Auto) (0.0-0.9) th/mm3 Eos # (Auto) (0.0-0.4) th/mm3 Baso # (Auto) (0.0-0.2) th/mm3 WBC Differential Differential Comment PT (9.8-11.6) sec INR Ratio Sodium (136-145) meq/L Potassium (3.5-5.1) meq/L Chloride (98-107) meq/L Carbon Dioxide (21.0-32.0) meq/L Anion Gap (5-15) meq/L BUN (7-18) mg/dL Creatinine (0.60-1.30) mg/dL Estimated GFR (>89) mL/min POC Glucose 189 H (68-110) mg/dl Random Glucose (74-106) mg/dL Lactic Acid (0.4-2.0) mmol/L Calcium (8.5-10.1) mg/dL Magnesium (1.5-2.5) mg/dL Total Bilirubin (0.2-1.0) mg/dL AST (15-37) U/L ALT (12-78) U/L Alkaline Phosphatase (45-117) U/L Total Creatine Kinase (39-308) U/L CK-MB (CK-2) (0.5-3.6) ng/mL CK-MB (CK-2) % (0.0-4.0) % Troponin I (0.02-0.05) ng/mL Total Protein (6.4-8.2) g/dL Albumin (3.4-5.0) g/dL TSH (0.358-3.740) uIU/mL Urine Color (Yellw/Straw) Urine Clarity (Clear) Urine pH (5.0-8.5) Ur Specific [place] (1.002-1.035) Urine Protein (Neg-Trace) mg/dL Urine Glucose (UA) (Negative) mg/dL Urine Ketones (Negative) mg/dL Urine Occult Blood (Negative) Urine Nitrate (Negative) Urine Bilirubin (Negative) Urine Urobilinogen (Less than 2) mg/dL Ur Leukocyte Esterase (Negative) Urine WBC (0-5) /hpf Urine Bacteria (None) /hpf Hyaline Casts (0-3) /lpf Urine Mucus (Occasional) /lpf Micro UA Comment Urine Culture Comments Urine Opiates Screen (Neg) Ur Barbiturates Screen (Neg) Ur Amphetamines Screen (Neg) U Benzodiazepines Scrn (Neg) Urine Cocaine Screen (Neg) U Cannabinoids Screen (Neg) Serum Alcohol (0-5) mg/dL Imaging Data Radiologist's impression: Chest X-Ray 05/16/18 09:13 CONCLUSION: No acute cardiopulmonary disease. There is no evidence of pneumonia. Head CT 05/16/18 09:15 CONCLUSION: 1. Negative noncontrast head CT. ECG Data Interpretation: Rate: 80 BPM Rhythm: Sinus [place]: Normal Intervals: Normal intervals, no blocks, QTc 430 ms Q waves: None T waves: Inverted in III ST segments: No significant elevations or depressions Impression: Non-specific EKG, no previous EKG available for comparison Discharge Plan Discharge Disposition Patient Disposition: 01 Discharge Home Physicians Team ED Provider: Lucrecia Lara ED Midlevel Provider: Christopher Kirby Primary Care Provider: UNKNOWN, Rxs /Orders / Referrals /Forms Prescriptions: No Action No Known Home Medications RF: 0 Discharge Interventions Interventions: Vital Signs Last Done: 05/16/18 10:15 Status ED Status: With Doctor
[2018-05-16 09:41] LABS: Bacteria,Urine Occasional /hpf; Bilirubin,Urine Negative (Negative); Clarity,Urine Hazy (Clear); Color,Urine Yellow (Yellw/Straw); Glucose,Urine (UA) Negative (Negative); Hyaline Casts,Urine 13 /lpf (0-3); Leukocyte Esterase,Urine Negative (Negative); Mucus,Urine Few /lpf (Occasional); Nitrite,Urine Negative (Negative); Specific Gravity,Urine 1.021 (1.002-1.035)
[2018-05-16 09:51] LABS: Baso # (Auto) 0.1 th/mm3 (0.0-0.2); Baso % (Auto) 0.5 % (0.0-2.0); Eos # (Auto) 0.1 th/mm3 (0.0-0.4); Eos % (Auto) 0.3 % (0.0-4.0); Hematocrit 42.2 % (39.0-51.0); Hemoglobin 14.4 gm/dL (13.0-17.0); Lymph # (Auto) 4.3 th/mm3 (1.0-4.8); Mean Corpuscular HGB Conc 34.2 % (32.0-36.0); Mean Corpuscular Hemoglobin 34.3 pg (27.0-34.0); Mean Corpuscular Volume 100.1 fL (80.0-100.0); Mean Platelet Volume 9.6 fL (7.0-11.0); Mono # (Auto) 1.7 th/mm3 (0.0-0.9); Mono % (Auto) 8.9 % (0.0-8.0); Neut # (Auto) 13.4 th/mm3 (1.8-7.7); Neut % (Auto) 68.3 % (16.0-70.0); Platelet Count 359 th/mm3 (150-450); Red Blood Count 4.22 mil/mm3 (4.50-5.90); Red Cell Distribution Width 13.1 % (11.6-17.2); White Blood Count 19.5 th/mm3 (4.0-11.0)
[2018-05-16] MEDS: Sod Chloride 0.9% Inj 1,000 ML IV.SIG SCH ×3 (09:57→21:35)
--- NOTE | 2018-05-16 10:00 | CT ---
EXAM DATE: 05/16/2018 9:55 AM EDT AGE/SEX: 62 years / Male INDICATIONS: Altered mental status. CLINICAL DATA: This is the patient's initial encounter. Patient reports that signs and symptoms have been present for 1 day and indicates a pain score of Nonresponsive. MEDICAL/SURGICAL HISTORY: Non-responsive. Non-responsive. RADIATION DOSE: 56.35 CTDI (mGy) ; Patient motion COMPARISON: No prior exams available for comparison. TECHNIQUE: CT of the head without contrast. Using automated exposure control and adjustment of the mA and/or kV according to patient size, radiation dose was kept as low as reasonably achievable to ob tain optimal diagnostic quality images. DICOM format image data is available electronically for revi ew and comparison. FINDINGS: Cerebrum: The ventricles are normal for age. No evidence of midline shift, mass lesion, hemorrhage or acute infarction. No extraaxial fluid collections are seen. Posterior Fossa: The cerebellum and brainstem are intact. The 4th ventricle is midline. The cerebe llopontine angle is unremarkable. Extracranial: The visualized portion of the orbits is intact. Skull: The calvaria is intact. No evidence of skull fracture. CONCLUSION: 1. Negative noncontrast head CT. Electronically signed by: Rui Staton MD 05/16/2018 9:59 AM EDT
[2018-05-16 10:10] LABS: Alanine Aminotransferase 46 U/L (12-78); Albumin 3.7 g/dL (3.4-5.0); Anion Gap 13 meq/L (5-15); Aspartate Aminotransferase 46 U/L (15-37); Blood Urea Nitrogen 60 mg/dL (7-18); Calcium 9.4 mg/dL (8.5-10.1); Carbon Dioxide 20.2 meq/L (21.0-32.0); Chloride 106 meq/L (98-107); Glomerular Filtration Rate 31 mL/min (>89); Glucose,Random 117 mg/dL (74-106); Magnesium 2.1 mg/dL (1.5-2.5); Potassium 3.4 meq/L (3.5-5.1); Sodium 139 meq/L (136-145)
--- NOTE | 2018-05-16 10:10 | XR ---
EXAM DATE: 05/16/2018 9:59 AM EDT AGE/SEX: 62 years / Male INDICATIONS: Fever. CLINICAL DATA: This is the patient's initial encounter. Patient reports that signs and symptoms have been present for 1 day and indicates a pain score of 0/10. MEDICAL/SURGICAL HISTORY: Non-responsive. Non-responsive. COMPARISON: No prior exams available for comparison. FINDINGS: A single AP view of the chest demonstrates the lungs to be symmetrically aerated without evidence of mass, infiltrate or effusion. The cardiomediastinal contours are unremarkable. Osseous structures a re intact. CONCLUSION: No acute cardiopulmonary disease. There is no evidence of pneumonia. Electronically signed by: Rui Staton MD 05/16/2018 10:09 AM EDT
[2018-05-16 10:11] LABS: INR 1.1 Ratio; Prothrombin Time 11.4 sec (9.8-11.6)
[2018-05-16 10:15] LABS: Alkaline Phosphatase 75 U/L (45-117); Creatine Kinase 401 U/L (39-308); Total Protein 7.6 g/dL (6.4-8.2); Troponin I 0.11 ng/mL (0.02-0.05)
[2018-05-16] MEDS ORDERED: SODIUM CHLOR 0.9% IV.SIG STA (10:18)
[2018-05-16] MEDS ORDERED: VANCOMYCIN IV.SIG STA (10:18)
[2018-05-16] MEDS ORDERED: Vancomycin Inj 2,000 MG in Sodium Chlor 0.9% Inj 500 ML IV.SIG STA (10:24)
[2018-05-16 10:28] LABS: Creatine Kinase MB 12.1 ng/mL (0.5-3.6)
[2018-05-16] MEDS ORDERED: Bisacodyl 10 MG Supp RECTAL PRN (12:07)
--- NOTE | 2018-05-16 12:07 | P.HPFP ---
History of Present Illness Primary Care Physician: UNKNOWN <Tsering Ray 05/17/18 12:19> UNKNOWN <Riana Aranda 05/16/18 12:06> History of Present Illness: 62-year-old male, unknown prior medical history, presenting to ED [place] act by police force for altered mental status, also meets SIRS criteria. The following history is obtained from the ED physician and the EMS personnel that received the [employer] act information. The man was apparently found in his car by the police and was significantly altered. He was brought to the ED where he was taken to [facility] for a psychiatric cold. He continued to be psychiatrically unstable and was taken back to the regular ED where repeat labs were drawn, showing he was meeting SIRS criteria. He has continued to be extremely combative and needed restraints. He has been doing bizarre activities as well. <Riana Aranda 05/17/18 03:23> - Diagnosis (1) SIRS (systemic inflammatory response syndrome) (2) Altered mental status (3) Elevated serum creatinine (4) Elevated troponin (5) T wave inversion in EKG (6) Nutrition, metabolism, and development symptoms (7) DVT prophylaxis <Tsering Ray 05/17/18 12:19> (1) SIRS (systemic inflammatory response syndrome) (2) Altered mental status (3) Elevated serum creatinine (4) Elevated troponin (5) T wave inversion in EKG (6) Nutrition, metabolism, and development symptoms (7) DVT prophylaxis <Riana Aranda 05/17/18 03:11> Inpatient Certification: I certify that the inpatient services were ordered in accordance with Medicare regulations governing the order. This includes certification that hospital inpatient services are reasonable and necessary and in the case of services not specified as inpatient-only under 42 CFR 419.22(n), that they are appropriately provided as inpatient services in accordance to with the 2-midnight benchmark under 43 CFR 412.3(e) <Tsering Ray 05/17/18 12:19> I certify that the inpatient services were ordered in accordance with Medicare regulations governing the order. This includes certification that hospital inpatient services are reasonable and necessary and in the case of services not specified as inpatient-only under 42 CFR 419.22(n), that they are appropriately provided as inpatient services in accordance to with the 2-midnight benchmark under 43 CFR 412.3(e) <Riana Aranda 05/16/18 12:06> Review of Systems unobtainable due to mental condition, unobtainable due to mental status < Riana Aranda 05/17/18 03:23> PMFSH - History History Provided By: Event Planning Intern / EMT, Law Enforcement <Riana Aranda 05/17 03:23> - Medical / Surgical Hx Neg / Unobtainable Medical Problems Denied: Unable to Obtain <Riana Aranda 05/17/18 03:23> Surgical History: Unable to Obtain <Riana Aranda 05/17/18 03:23> - Medical History Medical History: Medical History (Last Reviewed 05/17/18 @ 03:21 by Riana Aranda MD, R2) Medical history unknown <Tsering Ray - 05/17/18 12:19> Medical History (Last Reviewed 05/16/18 @ 09:29 by Lucrecia Lara, ) Medical history unknown <Riana Aranda 05/17/18 03:23> - Tobacco History Second Hand Smoke Exposure: No <Riana Aranda 05/16/18 12:06> Smoking Status: Cognitive impairment <Riana Aranad 05/17/18 03:23> - Alcohol History How Often Do You Have a Drink Containing Alcohol: Unable to Obtain <Riana Aranda 05/17/18 03:23> - Substance Use History Substance History: No History of Abuse, Unable to Obtain <Riana Aranda 03:23> - Travel History Recent Travel in the [facility] Within the Last 8 Weeks: Yes <Riana Aranda 05/16 12:06> Recent Travel Out of the Country Within the Last 8 Weeks: No <Riana Aranda 05/16/18 12:06> - Immunization History Tetanus Immunization: Unable to Assess <Riana Aranda 05/17/18 03:23> Hx Influenza Vaccine This Season: Unable to Assess <Riana Aranda 03:23> Medications and Allergies Allergies Allergy/AdvReac Type Severity Reaction Status Date / Time No Allergy Information Allergy Unverified 05/15/18 00:54 Available <Tsering Ray - 05/17/18 12:19> Home Medications Medication Instructions Recorded Confirmed Type No Known Home Medications 05/15/18 05/15/18 History <Tsering Ray - 05/17/18 12:19> Active Medications: Active Medications Al Hydroxide/Mg Hydroxide (Milk Of Magnesia Liq) 30 ml PO Q12H PRN PRN Reason: Mild Constipation Bisacodyl (Dulcolax Supp) 10 mg RECTAL DAILY PRN PRN Reason: SEVERE CONSITIPATION Flumazenil (Romazecon Inj) 0.2 mg IV.PUSH Q1M PRN PRN Reason: OVERSEDATION Haloperidol Lactate (Haldol Inj) 1 mg IV.PUSH Q15M PRN PRN Reason: for severe agitation Last Admin: 05/17/18 00:40 Dose: 1 mg Sodium Chloride (Ns Inj) 1,000 mls @ 0 mls/hr IV.SIG .Q0M SJ Last Admin: 05/16/18 21:35 Dose: 999 mls/hr Sodium Chloride (Ns Inj) 700 mls @ 0 mls/hr IV.SIG .Q0M SJ Last Admin: 05/16/18 09:58 Dose: 700 mls/hr Sodium Chloride (Ns Inj) 1,000 mls @ 0 mls/hr IV.SIG .Q0M SJ Sodium Chloride (Ns Inj) 1,000 mls @ 120 mls/hr IV.CONT .Q8H20M SJ Last Admin: 05/17/18 11:50 Dose: Not Given Pharmacy Profile Note (Vancomycin Consult Pharmacy) 0 mls @ 0 mls/hr OTHER UNSCH SJ Piperacillin/Tazobactam/Dextrose (Zosyn 4.5 Gm Premix) 4.5 gm in 100 mls @ 200 mls/hr IV.SIG Q6H SJ Last Admin: 05/17/18 11:49 Dose: Not Given Vancomycin HCl 1,250 mg/ (Sodium Chloride) 262.5 mls @ 250 mls/hr IV.SIG Q24H SJ Lactulose (Lactulose Liq) 30 ml PO DAILY PRN PRN Reason: SEVERE CONSITIPATION Lorazepam (Ativan Inj) 1 mg IV.PUSH ONCE PRN PRN Reason: SEDATION Last Admin: 05/16/18 12:15 Dose: 1 mg Lorazepam (Ativan) 1 mg PO Q4H PRN PRN Reason: for CIWA 8-10 Last Admin: 05/17/18 08:57 Dose: 1 mg Lorazepam (Ativan Inj) 2 mg IV.PUSH Q2H PRN PRN Reason: for CIWA 11-14 Last Admin: 05/17/18 01:57 Dose: 2 mg Lorazepam (Ativan Inj) 2 mg IV.PUSH Q1H PRN PRN Reason: for CIWA 15-20 Lorazepam (Ativan Inj) 2 mg IV.PUSH Q15M PRN PRN Reason: for CIWA > 20 Lorazepam (Ativan Inj) 1 mg IV.PUSH Q4H PRN PRN Reason: for CIWA 8-10 Last Admin: 05/16/18 18:00 Dose: 1 mg Lorazepam (Ativan) 2 mg PO Q2H PRN PRN Reason: for CIWA 11-14 Miscellaneous Information ([facility] Ordered Lab Info) 0 each OTHER ONCE ONE Stop: 05/19/18 10:46 Sennosides (Senokot) 17.2 mg PO Q12H PRN PRN Reason: Moderate Constipation <Tsering Ray - 05/17/18 12:19> Active Medications Sodium Chloride (Ns Inj) 1,000 mls @ 0 mls/hr IV.SIG .Q0M SJ Last Admin: 05/16/18 11:10 Dose: 999 mls/hr Sodium Chloride (Ns Inj) 700 mls @ 0 mls/hr IV.SIG .Q0M SJ Last Admin: 05/16/18 09:58 Dose: 700 mls/hr Sodium Chloride (Ns Inj) 1,000 mls @ 0 mls/hr IV.SIG .Q0M SJ Vancomycin HCl 2,000 mg/ (Sodium Chloride) 520 mls @ 250 mls/hr IV.SIG ONCE STA Stop: 05/16/18 12:28 Last Admin: 05/16/18 11:14 Dose: 250 mls/hr Lorazepam (Ativan Inj) 1 mg IV.PUSH ONCE PRN PRN Reason: SEDATION <Riana Aranda - 05/16/18 12:06> Exam Vital signs: Vital Signs 05/16/18 13:55 05/16/18 16:00 05/16/18 20:00 Temperature 98.5 F 98.1 F Pulse Rate 87 80 Respiratory Rate 18 20 Blood Pressure 105/66 112/70 Pulse Oximetry 100 98 98 05/17/18 00:00 05/17/18 04:00 05/17/18 09:10 Temperature 97.9 F 97.5 F L 97.4 F L Pulse Rate 72 50 L 68 Respiratory Rate 18 14 20 Blood Pressure 166/82 H 152/78 H 148/62 H Pulse Oximetry 18 L 100 100 Intake & Output 05/16/18 05/17/18 05/17/18 18:59 06:59 18:59 Intake Total 2100 / 2100 100 / 100 100 / 100 Output Total 900 / 900 Balance 2099 / 2099 -800 / -800 100 / 100 Weight 74.7 kg 72.8 kg Intake: IV 2100 / 2100 100 / 100 100 / 100 Ampicillin Inj 2,000 MG In NS 100 / 100 Inj 100 ML @ 400 mls/hr IV.SIG ONCE ONE Rx#:[id number] Zosyn 4.5 GM Premix 4.5 gm In 100 / 100 100 / 100 100 ml @ 200 mls/hr IV.SIG Q6H [facility] Rx#:[id number] NS Inj 1,000 ML @ Wide Open IV. 1999 / 1999 SIG .Q0M [facility] Rx#:[id number] Oral 0 / 0 Output: Urine Amount (Catheter) 900 / 900 Indwelling Urethral Catheter 900 / 900 <Tsering Ray - 05/17/18 12:19> Vital Signs 05/15/18 13:00 05/15/18 21:44 05/16/18 02:21 Temperature 97.6 F 98.2 F 98.6 F Pulse Rate 70 54 L 62 Respiratory Rate 18 18 18 Blood Pressure 126/68 166/89 H 127/73 Pulse Oximetry 98 100 98 05/16/18 08:55 05/16/18 09:15 05/16/18 09:30 Temperature 98.1 F Pulse Rate 73 73 73 Respiratory Rate 22 Blood Pressure 129/93 H Pulse Oximetry 95 95 05/16/18 10:15 Temperature Pulse Rate 72 Respiratory Rate 19 Blood Pressure 134/68 Pulse Oximetry 100 Intake & Output 05/15/18 05/16/18 05/16/18 18:59 06:59 18:59 Intake Total 1100 / 1100 Balance 1100 / 1100 Intake: IV 1100 / 1100 Ampicillin Inj 2,000 MG In NS 100 / 100 Inj 100 ML @ 400 mls/hr IV.SIG ONCE ONE Rx#:[id number] NS Inj 1,000 ML @ Wide Open IV. 1000 / 1000 SIG .Q0M [facility] Rx#:[id number] [facility] 05/16/18 12:06> - Constitutional moderate distress <[facility] 05/17/18 03:23> - Routine HEENT Exam Head: Present: atraumatic <[facility] 05/17/18 03:23> Eye: Present: scleral injection. Absent: normal accommodation (Pupils are constricted throughout the exam, no accommodation), nystagmus <[facility] 05/17/18 03:23> ENT: Present: mucous membranes dry <[facility] 05/17/18 03:23> - Routine Respiratory Exam Present: CTA bilaterally (On anterior auscultation). Absent: accessory muscle use <[facility] 05/17/18 03:23> - Routine Cardiovascular Exam Present: RRR, S1, S2 <[facility] 05/17/18 03:23> - Routine Abdominal Exam Present: soft, normoactive bowel sounds. Absent: tenderness <[facility] 05/17/18 03:23> - Routine Extremities Exam Present: full ROM. Absent: cyanosis, edema <[facility] 05/17/18 03:23> - Routine Skin Exam Present: lesions (Pole abrasions over her knees and legs, appeared to be scarred over abrasions with some being picked off), rash <[facility] 03:23> - Routine Neurological Exam Present: alert (Awake, oriented 0), altered mental status. Absent: facial asymmetry <[facility] 05/17/18 03:23> Results - Labs Result diagrams: 05/17/18 06:45 05/17/18 06:45 <Tsering Ray - 05/17/18 12:19> Abnormal lab results 05/15/18 05/16/18 05/16/18 Range/Units 04:35 12:21 12:21 WBC (4.0-11.0) th/mm3 RBC (4.50-5.90) mil/mm3 MCH (27.0-34.0) pg Neut % (Auto) (16.0-70.0) % Neut # (Auto) (1.8-7.7) th/mm3 Cloud # (Auto) (0.0-0.9) th/mm3 O2 Saturation (90-100) % ABG pCO2 (38-42) mmHg ABG pO2 (61-120) mmHg ABG HCO3 (22-26) mmol/L ABG Base Excess (-2-2) mmol/L Sodium (136-145) meq/L Chloride (98-107) meq/L BUN (7-18) mg/dL Creatinine (0.60-1.30) mg/dL Estimated GFR (>89) mL/min POC Glucose (68-110) mg/dl AST (15-37) U/L Ammonia (11-32) mcmol/L Troponin I (0.02-0.05) ng/mL CSF Gross Blood (1) Trace A (0) CSF Total Protein 72.5 H (15.0-45.0) mg/dL Acetaminophen Less than 2.0 L (10.0-30.0) mcg/mL 05/16/18 05/17/18 05/17/18 Range/Units 22:20 00:36 06:45 WBC (4.0-11.0) th/mm3 RBC (4.50-5.90) mil/mm3 MCH (27.0-34.0) pg Neut % (Auto) (16.0-70.0) % Neut # (Auto) (1.8-7.7) th/mm3 Cloud # (Auto) (0.0-0.9) th/mm3 O2 Saturation 84 L* (90-100) % ABG pCO2 35 L (38-42) mmHg ABG pO2 53 L* (61-120) mmHg ABG HCO3 21 L (22-26) mmol/L ABG Base Excess -2.8 L (-2-2) mmol/L Sodium (136-145) meq/L Chloride (98-107) meq/L BUN (7-18) mg/dL Creatinine (0.60-1.30) mg/dL Estimated GFR (>89) mL/min POC Glucose 128 H (68-110) mg/dl AST (15-37) U/L Ammonia 42 H (11-32) mcmol/L Troponin I (0.02-0.05) ng/mL CSF Gross Blood (1) (0) CSF Total Protein (15.0-45.0) mg/dL Acetaminophen (10.0-30.0) mcg/mL 05/17/18 05/17/18 Range/Units 06:45 06:45 WBC 15.9 H (4.0-11.0) th/mm3 RBC 3.94 L (4.50-5.90) mil/mm3 MCH 34.1 H (27.0-34.0) pg Neut % (Auto) 72.4 H (16.0-70.0) % Neut # (Auto) 11.5 H (1.8-7.7) th/mm3 Cloud # (Auto) 1.3 H (0.0-0.9) th/mm3 O2 Saturation (90-100) % ABG pCO2 (38-42) mmHg ABG pO2 (61-120) mmHg ABG HCO3 (22-26) mmol/L ABG Base Excess (-2-2) mmol/L Sodium 147 H (136-145) meq/L Chloride 115 H D (98-107) meq/L BUN 47 H (7-18) mg/dL Creatinine 1.68 H (0.60-1.30) mg/dL Estimated GFR 42 L (>89) mL/min POC Glucose (68-110) mg/dl AST 40 H (15-37) U/L Ammonia (11-32) mcmol/L Troponin I 0.09 H (0.02-0.05) ng/mL CSF Gross Blood (1) (0) CSF Total Protein (15.0-45.0) mg/dL Acetaminophen (10.0-30.0) mcg/mL Short CBC 05/17/18 Range/Units 06:45 WBC 15.9 H (4.0-11.0) th/mm3 Hgb 13.4 (13.0-17.0) gm/dL Hct 39.2 (39.0-51.0) % Plt Count 278 (150-450) th/mm3 BMP 05/17/18 06:45 Sodium 147 H Potassium 3.5 Chloride 115 H D Carbon Dioxide 22.2 BUN 47 H Creatinine 1.68 H Calcium 8.7 Cardiac Enzymes 05/17/18 Range/Units 06:45 Troponin I 0.09 H (0.02-0.05) ng/mL Liver Function 05/17/18 Range/Units 06:45 Total Bilirubin 1.0 (0.2-1.0) mg/dL AST 40 H (15-37) U/L ALT 38 (12-78) U/L Alkaline Phosphatase 65 (45-117) U/L Albumin 3.4 (3.4-5.0) g/dL <Tsering Ray - 05/17/18 12:19> Abnormal lab results 05/16/18 05/16/18 05/16/18 Range/Units 09:20 09:35 09:35 WBC 19.5 H (4.0-11.0) th/mm3 RBC 4.22 L (4.50-5.90) mil/mm3 MCV 100.1 H (80.0-100.0) fL MCH 34.3 H (27.0-34.0) pg Cloud % (Auto) 8.9 H (0.0-8.0) % Neut # (Auto) 13.4 H (1.8-7.7) th/mm3 Cloud # (Auto) 1.7 H (0.0-0.9) th/mm3 Potassium 3.4 L D (3.5-5.1) meq/L Carbon Dioxide 20.2 L (21.0-32.0) meq/L BUN 60 H (7-18) mg/dL Creatinine 2.16 H (0.60-1.30) mg/dL Estimated GFR 31 L (>89) mL/min POC Glucose (68-110) mg/dl Random Glucose 117 H (74-106) mg/dL Lactic Acid (0.4-2.0) mmol/L AST 46 H (15-37) U/L Total Creatine Kinase 401 H (39-308) U/L CK-MB (CK-2) 12.1 H (0.5-3.6) ng/mL Troponin I 0.11 H (0.02-0.05) ng/mL Urine Clarity Hazy H (Clear) Urine Protein 100 H (Neg-Trace) mg/dL Urine Urobilinogen 2.0 H (Less than 2) mg/dL Urine Bacteria Occasional H (None) /hpf Urine Mucus Few H (Occasional) /lpf 05/16/18 05/16/18 Range/Units 09:35 10:04 WBC (4.0-11.0) th/mm3 RBC (4.50-5.90) mil/mm3 MCV (80.0-100.0) fL MCH (27.0-34.0) pg Cloud % (Auto) (0.0-8.0) % Neut # (Auto) (1.8-7.7) th/mm3 Cloud # (Auto) (0.0-0.9) th/mm3 Potassium (3.5-5.1) meq/L Carbon Dioxide (21.0-32.0) meq/L BUN (7-18) mg/dL Creatinine (0.60-1.30) mg/dL Estimated GFR (>89) mL/min POC Glucose 189 H (68-110) mg/dl Random Glucose (74-106) mg/dL Lactic Acid 2.1 H (0.4-2.0) mmol/L AST (15-37) U/L Total Creatine Kinase (39-308) U/L CK-MB (CK-2) (0.5-3.6) ng/mL Troponin I (0.02-0.05) ng/mL Urine Clarity (Clear) Urine Protein (Neg-Trace) mg/dL Urine Urobilinogen (Less than 2) mg/dL Urine Bacteria (None) /hpf Urine Mucus (Occasional) /lpf Short CBC 05/16/18 Range/Units 09:35 WBC 19.5 H (4.0-11.0) th/mm3 Hgb 14.4 (13.0-17.0) gm/dL Hct 42.2 (39.0-51.0) % Plt Count 359 (150-450) th/mm3 BMP 05/16/18 09:35 Sodium 139 Potassium 3.4 L D Chloride 106 Carbon Dioxide 20.2 L BUN 60 H Creatinine 2.16 H Calcium 9.4 Cardiac Enzymes 05/16/18 Range/Units 09:35 Total Creatine Kinase 401 H (39-308) U/L CK-MB (CK-2) 12.1 H (0.5-3.6) ng/mL Troponin I 0.11 H (0.02-0.05) ng/mL Liver Function 05/16/18 Range/Units 09:35 Total Bilirubin 0.9 (0.2-1.0) mg/dL AST 46 H (15-37) U/L ALT 46 (12-78) U/L Alkaline Phosphatase 75 (45-117) U/L Albumin 3.7 (3.4-5.0) g/dL Urine 05/16/18 Range/Units 09:20 Urine Color Yellow (Yellw/Straw) Urine Clarity Hazy H (Clear) Urine pH 5.0 (5.0-8.5) Ur Specific [place] 1.021 (1.002-1.035) Urine Protein 100 H (Neg-Trace) mg/dL Urine Glucose (UA) Negative (Negative) mg/dL <Riana Aranda - 05/16/18 12:06> - Imaging Impressions Carotid Doppler Study 05/16/18 00:00 CONCLUSION: 1. Right Internal Carotid Artery: Findings indicate >70% stenosis, but less than near occlusion. 2. Left Internal Carotid Artery: Findings indicate <50% stenosis. Lumbar Puncture Fluoroscopy 05/16/18 10:18 CONCLUSION: 1. Uncomplicated fluoroscopically guided lumbar puncture. Abdomen X-Ray 05/17/18 00:00 CONCLUSION: Status post multilevel lumbar fusion with no MR incompatible hardware identified. Head MRI 05/17/18 00:00 CONCLUSION: 1. Minimal periventricular white matter changes otherwise negative for acute process. 2. Partially empty sella 3. Moderate motion artifact is present. <Tsering Ray - 05/17/18 12:19> Impressions Chest X-Ray 05/16/18 09:13 CONCLUSION: No acute cardiopulmonary disease. There is no evidence of pneumonia. Head CT 05/16/18 09:15 CONCLUSION: 1. Negative noncontrast head CT. <Riana Aranda - 05/16/18 12:06> Caprini VTE Risk Assessment Caprini VTE Risk Assessment: No/Low Risk (score <= 1) <Riana Aranda - 05/17 03:23> Caprini Risk Assessment Model: Point Value = 1 Point Value = 2 Point Value = 3 Point Value = 5 Age 41-60 Minor surgery BMI > 25 kg/m2 Swollen legs Varicose veins or History of unexplained or recurrent spontaneous Oral contraceptives or hormone replacement Sepsis (< 1 month) Serious lung disease, including pneumonia (< 1 month) Abnormal pulmonary function Acute myocardial infarction Congestive heart failure (< 1 month) History of inflammatory bowel disease Medical patient at bed rest Age 61-74 Arthroscopic surgery Major open surgery (> 45 min) Laparoscopic surgery (> 45 min) Malignancy Confined to bed (> 72 hours) Immobilizing plaster cast Central venous access Age >= 75 History of VTE Family history of VTE Factor V Leiden Prothrombin [id number] Lupus anticoagulant Anticardiolipin antibodies Elevated serum homocysteine Heparin-induced thrombocytopenia Other congenital or acquired thrombophilia Stroke (< 1 month) Elective arthroplasty Hip, pelvis, or leg fracture Acute spinal cord injury (< 1 month) <Tsering Ray - 05/17/18 12:19> Point Value = 1 Point Value = 2 Point Value = 3 Point Value = 5 Age 41-60 Minor surgery BMI > 25 kg/m2 Swollen legs Varicose veins or History of unexplained or recurrent spontaneous Oral contraceptives or hormone replacement Sepsis (< 1 month) Serious lung disease, including pneumonia (< 1 month) Abnormal pulmonary function Acute myocardial infarction Congestive heart failure (< 1 month) History of inflammatory bowel disease Medical patient at bed rest Age 61-74 Arthroscopic surgery Major open surgery (> 45 min) Laparoscopic surgery (> 45 min) Malignancy Confined to bed (> 72 hours) Immobilizing plaster cast Central venous access Age >= 75 History of VTE Family history of VTE Factor V Leiden Prothrombin [id number] Lupus anticoagulant Anticardiolipin antibodies Elevated serum homocysteine Heparin-induced thrombocytopenia Other congenital or acquired thrombophilia Stroke (< 1 month) Elective arthroplasty Hip, pelvis, or leg fracture Acute spinal cord injury (< 1 month) <Riana Aranda - 05/16/18 12:06> Prophylaxis Regimen: Total Risk Factor Score Risk Level Prophylaxis Regimen 0-1 Low Early ambulation 2 Moderate Order ONE of the following: *Sequential Compression Device (SCD) *Heparin 5000 units SQ BID 3-4 Higher Order ONE of the following medications: *Heparin 5000 units SQ TID *Enoxaparin/Lovenox 40 mg SQ daily (WT < 150 kg, CrCl > 30 mL/min) *Enoxaparin/Lovenox 30 mg SQ daily (WT < 150 kg, CrCl > 10-29 mL/min) *Enoxaparin/Lovenox 30 mg SQ BID (WT < 150 kg, CrCl > 30 mL/min) AND/OR *Sequential Compression Device (SCD) 5 or more Highest Order ONE of the following medications: *Heparin 5000 units SQ TID (Preferred with Epidurals) *Enoxaparin/Lovenox 40 mg SQ daily (WT < 150 kg, CrCl > 30 mL/min) *Enoxaparin/Lovenox 30 mg SQ daily (WT < 150 kg, CrCl > 10-29 mL/min) *Enoxaparin/Lovenox 30 mg SQ BID (WT < 150 kg, CrCl > 30 mL/min) AND *Sequential Compression Device (SCD) <Tsering Ray - 05/17/18 12:19> Total Risk Factor Score Risk Level Prophylaxis Regimen 0-1 Low Early ambulation 2 Moderate Order ONE of the following: *Sequential Compression Device (SCD) *Heparin 5000 units SQ BID 3-4 Higher Order ONE of the following medications: *Heparin 5000 units SQ TID *Enoxaparin/Lovenox 40 mg SQ daily (WT < 150 kg, CrCl > 30 mL/min) *Enoxaparin/Lovenox 30 mg SQ daily (WT < 150 kg, CrCl > 10-29 mL/min) *Enoxaparin/Lovenox 30 mg SQ BID (WT < 150 kg, CrCl > 30 mL/min) AND/OR *Sequential Compression Device (SCD) 5 or more Highest Order ONE of the following medications: *Heparin 5000 units SQ TID (Preferred with Epidurals) *Enoxaparin/Lovenox 40 mg SQ daily (WT < 150 kg, CrCl > 30 mL/min) *Enoxaparin/Lovenox 30 mg SQ daily (WT < 150 kg, CrCl > 10-29 mL/min) *Enoxaparin/Lovenox 30 mg SQ BID (WT < 150 kg, CrCl > 30 mL/min) AND *Sequential Compression Device (SCD) <Riana Aranda - 05/16/18 12:06> Assessment and Plan - Assessment (1) SIRS (systemic inflammatory response syndrome) Code(s): R65.10 - Systemic inflammatory response syndrome (SIRS) of non- infectious origin without acute organ dysfunction Status: Acute (2) Altered mental status Code(s): R41.82 - Altered mental status, unspecified Status: Acute (3) Elevated serum creatinine Code(s): R79.89 - Other specified abnormal findings of blood chemistry Status : Acute (4) Elevated troponin Code(s): R74.8 - Abnormal levels of other serum enzymes Status: Acute (5) T wave inversion in EKG Code(s): R94.31 - Abnormal electrocardiogram [ECG] [EKG] Status: Acute (6) Nutrition, metabolism, and development symptoms Code(s): R63.8 - Other symptoms and signs concerning food and fluid intake Status: Acute (7) DVT prophylaxis Status: Acute <Tsering Ray - 05/17/18 12:19> (1) SIRS (systemic inflammatory response syndrome) Code(s): R65.10 - Systemic inflammatory response syndrome (SIRS) of non- infectious origin without acute organ dysfunction Status: Acute Plan: Meets 2 out of 4 criteria for sepsis: Tachypnea over 20 breaths per minute, WBC over 12,000 cells RR 22, WBC 19.5 Concerns for severe sepsis as follows Lactic acid 2.1 Decreased urine output over the last 24 hours Altered level of consciousness Chest x-ray negative Urine: Occasional bacteria, follow-up urine culture Follow-up lumbar puncture results Follow-up vital signs Follow-up CBC, CMP in a.m. Follow-up lactic acid protocol Follow urine output Neurochecks every 4 hours (2) Altered mental status Code(s): R41.82 - Altered mental status, unspecified Status: Acute Plan: Follow-up septic workup; lumbar puncture, blood cultures, urine cultures, sputum cultures Follow-up cardiac workup to rule out cardiac causes; troponins, EKGs Follow-up ammonia level Follow-up ABG Follow-up TSH and free T4 Follow-up bedside glucose Follow-up drug screen with acetaminophen, alcohol Follow-up influenza a/B antigen bedrest with fall precautions, soft restraints, bed near nursing station Follow-up bedside swallow eval before diet Normal saline at maintenance Haldol as needed for agitation Follow-up vitamin B1, B12, MMA, RPR, sed rate, GUS CT head: negative Chest x-ray negative f/u MRI brain to rule out stroke versus mass versus NPH f/u Ultrasound carotid f/u EEG (3) Elevated serum creatinine Code(s): R79.89 - Other specified abnormal findings of blood chemistry Status : Acute Plan: Elevated creatinine and possible oliguria as reported by ED physician Creatinine 2.16 from 1.80 yesterday, no comparison from previous visits Likely prerenal failure due to dehydration, sepsis IV fluids: Normal saline at 120ml/hr Follow-up urine output, urine sodium/creatinine/osmolality Will consider renal ultrasound if no obvious source Follow-up urine output after fluid challenge (4) Elevated troponin Code(s): R74.8 - Abnormal levels of other serum enzymes Status: Acute Plan: Elevated troponin of 0.11 Causes may include ACS, arrhythmia, cardiac stress from CHF/myocarditis/ pericarditis/endocarditis Noncardiac causes include renal failure, PE, CVA, sepsis Follow-up ACS workup, nursing and lab both contacted and advised that patient needs follow-up troponin MAKI and follow-up EKG MAKI Follow-up telemetry Continue to treat renal failure Follow-up MRI to rule out stroke Continue treatment for sepsis as above (5) T wave inversion in EKG Code(s): R94.31 - Abnormal electrocardiogram [ECG] [EKG] Status: Acute Plan: EKG #1: Small ST changes, inconsistent, no ST elevations EKG #2: T-wave changes in comparison, T-wave flattening/inversions in comparison to previous EKG f/u troponin, f/u EKG changes, f/u sx (6) Nutrition, metabolism, and development symptoms Code(s): R63.8 - Other symptoms and signs concerning food and fluid intake Status: Acute Plan: Fluids: Normal saline at maintenance Electrolytes: Follow-up BMP and replete as needed Nutrition: Swallow eval before regular diet (7) DVT prophylaxis Status: Acute Plan: GI prophylaxis: Not indicated DVT prophylaxis: SCDs <Riana Aranda - 05/17/18 03:11> - Assessment and Plan 62-year-old male, unknown prior medical history, presenting to ED [place] act by police force for altered mental status, also meets SIRS criteria. <Riana Aranda - 05/17/18 03:23> - Attending Attestation Patient seen and examined on the afternoon of 05/16/2018, discussed with resident team. I agree with assessment and management as documented and discussed with me. Robert Rodriguez is a 62yo gentleman with unknown medical history admitted after being in the J pod for altered mental status, after having been found by police acting erratically in his car. He underwent LP in the ER, and has had Urine cultures and blood cultures drawn. At the time of my exam, he is mumbling to himself, but moving his neck. Start broad spectrum antibiotics, with vancomycin and zosyn. Additional diagnosis: Bacteriuria: Cath U/A with bacteria. Await urine culture. This may be contributing factor to altered mental status. The patient has been seen and examined. The chart and all resident notes have been reviewed. I agree that inpatient care is appropriate and that a two midnight stay is expected for the reasons documented in the resident history and physical. I have discussed this with the resident and certify the resident s order for inpatient admission. <Tsering Ray - 05/17/18 12:19>
--- NOTE | 2018-05-16 12:52 | P.RAD ---
Post Procedure Progress Note - Pre Procedure Diagnosis (1) Altered mental status - Post Procedure Diagnosis (1) Altered mental status - Procedure Information Procedure Date: 05/16/18 Supervising Radiologist: Ron Casas MD Estimated blood loss (mL): 0 Anesthesia: Local - Plan of Activity Patient to Unit: Other (ED) Patient Condition: Good See PACS Report for procedural detail/treatment. Spinal Procedure Lumbar Puncture L3-L4 Fluid Removal (CCs): 17 Fluid Description: Clear Puncture Time: 12:10 Findings: OP 12 cmH2O
[2018-05-16 14:39] LABS: Lymphocytes, CSF 88 %; Monocytes,CSF 12 %; Neutrophils,CSF 0 %; RBC on Tube 4 0 /mm3
[2018-05-16] MEDS ORDERED: Vancomycin Consult Pharmacy 1 EACH OTHER SCH (16:00)
[2018-05-16] MEDS: Sod Chloride 0.9% Inj 1,000 ML IV.CONT SCH (20:27)
--- NOTE | 2018-05-16 21:06 | US ---
EXAM DATE: 05/16/2018 8:44 PM EDT AGE/SEX: 62 years / Male INDICATIONS: Amaurosis fugax. CLINICAL DATA: This is the patient's initial encounter. Patient reports that signs and symptoms have been present for 1 day and indicates a pain score of 0/10. MEDICAL/SURGICAL HISTORY: None. None. COMPARISON: No prior exams available for comparison. VELOCITY PARAMETERS: ICA/CCA Ratio: Right 5.4 , Left 1.2 ICA: Right 370.7 cm/sec, Left 84.0 cm/sec CCA: Right 69.1 cm/sec, Left 72.4 cm/sec ECA: Right 57.5 cm/sec, Left 70.2 cm/sec Vertebral: Right UTO cm/sec absent, Left 60.7 cm/sec antegrade FINDINGS: Right Carotid: Heterogeneous shadowing and nonshadowing right common and internal carotid artery. Th ere is widening of the velocity waveform in the internal carotid artery with negative velocity compon ents during systole. Left Carotid: Mild arteriosclerotic plaque is visualized. The waveforms are within normal limits. Other: None. CONCLUSION: 1. Right Internal Carotid Artery: Findings indicate >70% stenosis, but less than near occlusion. 2. Left Internal Carotid Artery: Findings indicate <50% stenosis. Electronically signed by: Santino Ji MD 05/16/2018 9:05 PM EDT
[2018-05-16] MEDS: Piperacil/Tazo 4.5 GM Premix 4.5 GM/100 ML BAG IV.SIG SCH (21:35)
[2018-05-16] MEDS: Haloperidol Inj 5 MG/ML Ampul IV.PUSH PRN (21:36)
[2018-05-16 22:27] LABS: ABG Base Excess -2.8 mmol/L (-2-2); ABG PCO2 35 mmHg (38-42); ABG PO2 53 mmHg (61-120)
[2018-05-17] MEDS: Haloperidol Inj 5 MG/ML Ampul IV.PUSH PRN (00:40)
[2018-05-17] MEDS: Piperacil/Tazo 4.5 GM Premix 4.5 GM/100 ML BAG IV.SIG SCH ×4 (01:32→20:46)
[2018-05-17] MEDS: Sod Chloride 0.9% Inj 1,000 ML IV.CONT SCH ×4 (01:35→17:03)
--- NOTE | 2018-05-17 06:58 | IR ---
EXAM DATE: 05/16/2018 12:59 PM EDT AGE/SEX: 62 years / Male INDICATIONS: Patient was sent to the hospital for altered mental status. Patient is confused and co mbative. Lumbar puncture CLINICAL DATA: This is the patient's subsequent encounter. Patient reports that signs and symptoms h ave been present for 1 day and indicates a pain score of 0/10. MEDICAL/SURGICAL HISTORY: . Not able to obtain history from patient. . Not able to obtain hist ory from patient. COMPARISON: No prior exams available for comparison. FLUORO TIME (min): 1.25 IMAGE SERIES: 1 ACCESS SITE: L3-4 LUMBAR PUNCTURE TIME: 11:21am hours FLUID: Total volume of 17 cc of 1 mg lorazepam (Ativan) IV . . PROCEDURE: 1. Fluoroscopic guided lumbar puncture. The risks, benefits and alternatives to the procedure were explained and verbal and written consent w as obtained. The site was prepped in sterile fashion. Full sterile technique was used, including ca p, mask, sterile gloves and gown and a large sterile sheet. Hand hygiene and 2% chlorhexidine and/or betadine/alcohol prep was utilized per protocol for cutaneous antisepsis. The skin and subcutaneous tissues were infiltrated with local anesthetic solution. With fluoroscopic guidance the lumbar thecal sac was punctured at the level above. Of note, patient has had extensive posterior fixation and laminectomies of the thoracolumbar spine. The fluid describe d above was removed without difficulty. The patient tolerated the procedure well and there were no complications. CONCLUSION: 1. Uncomplicated fluoroscopically guided lumbar puncture. Electronically signed by: Ron Casas MD 05/17/2018 6:57 AM EDT
[2018-05-17 07:06] LABS: Baso # (Auto) 0.1 th/mm3 (0.0-0.2); Baso % (Auto) 0.5 % (0.0-2.0); Eos # (Auto) 0.1 th/mm3 (0.0-0.4); Eos % (Auto) 0.5 % (0.0-4.0); Hematocrit 39.2 % (39.0-51.0); Hemoglobin 13.4 gm/dL (13.0-17.0); Lymph % (Auto) 18.7 % (9.0-44.0); Mean Corpuscular HGB Conc 34.3 % (32.0-36.0); Mean Corpuscular Hemoglobin 34.1 pg (27.0-34.0); Mean Corpuscular Volume 99.6 fL (80.0-100.0); Mean Platelet Volume 9.7 fL (7.0-11.0); Mono # (Auto) 1.3 th/mm3 (0.0-0.9); Mono % (Auto) 7.9 % (0.0-8.0); Neut # (Auto) 11.5 th/mm3 (1.8-7.7); Neut % (Auto) 72.4 % (16.0-70.0); Platelet Count 278 th/mm3 (150-450); Red Blood Count 3.94 mil/mm3 (4.50-5.90); Red Cell Distribution Width 12.8 % (11.6-17.2); White Blood Count 15.9 th/mm3 (4.0-11.0)
[2018-05-17 07:13] LABS: INR 1.1 Ratio; Prothrombin Time 11.3 sec (9.8-11.6)
[2018-05-17 08:11] LABS: Alanine Aminotransferase 38 U/L (12-78); Albumin 3.4 g/dL (3.4-5.0); Alkaline Phosphatase 65 U/L (45-117); Anion Gap 10 meq/L (5-15); Aspartate Aminotransferase 40 U/L (15-37); Blood Urea Nitrogen 47 mg/dL (7-18); Calcium 8.7 mg/dL (8.5-10.1); Carbon Dioxide 22.2 meq/L (21.0-32.0); Chloride 115 meq/L (98-107); Free T4 (Free Thyroxine) 1.42 ng/dL (0.76-1.46); Glomerular Filtration Rate 42 mL/min (>89); Glucose,Random 84 mg/dL (74-106); Potassium 3.5 meq/L (3.5-5.1); Sodium 147 meq/L (136-145); Total Protein 6.7 g/dL (6.4-8.2); Troponin I 0.09 ng/mL (0.02-0.05); Vancomycin,Random 3.3 Comment; Vitamin B12 692 pg/mL (193-986)
[2018-05-17] MEDS: LORazepam 1 MG Tablet PO PRN ×2 (08:57→20:48)
--- NOTE | 2018-05-17 11:18 | XR ---
EXAM DATE: 05/17/2018 10:55 AM EDT AGE/SEX: 62 years / Male INDICATIONS: Clear for MRI. CLINICAL DATA: This is the patient's initial encounter. Patient reports that signs and symptoms have been present for 1 day and indicates a pain score of 0/10. MEDICAL/SURGICAL HISTORY: . Unobtainable. Fusion, lumbar. COMPARISON: No prior exams available for comparison. FINDINGS: 2 AP views of the abdomen were obtained. The mid and lower pelvis were cut off the exam. The bowel g as pattern is unremarkable. There are postoperative changes in the lumbar spine status post multileve l fusion and laminectomy. The patient is status post kyphoplasty at the L5 level. There are overlying echocardiogram leads. There is a dense calcification projected in the region of the spleen. CONCLUSION: Status post multilevel lumbar fusion with no MR incompatible hardware identified. Electronically signed by: Rui Staton MD 05/17/2018 11:17 AM EDT
--- NOTE | 2018-05-17 12:04 | MR ---
EXAM DATE: 05/17/2018 11:56 AM EDT AGE/SEX: 62 years / Male INDICATIONS: CVA. Confusion. CLINICAL DATA: This is the patient's initial encounter. Patient reports that signs and symptoms have been present for 3 days and indicates a pain score of 0/10. MEDICAL/SURGICAL HISTORY: . cleared by rad/xrays Fusion, lumbar. cleared by rad/xrays. COMPARISON: No prior exams available for comparison. TECHNIQUE: Multiplanar, multisequence examination of the brain was performed without contrast. Minima l motion artifact is present FINDINGS: Cerebrum: The ventricles are normal for age. No evidence of midline shift, mass lesion, hemorrhage or acute infarction. No extraaxial fluid collections are seen. Partially empty sella White Matter: Minimal periventricular white matter changes with small lacunar infarct basal ganglia left side Posterior Fossa: The cerebellum and brainstem are intact. The 4th ventricle is midline. The cerebel lopontine angle is unremarkable. The cerebellar tonsils are normal in position. Diffusion Imaging: No focal areas of restricted diffusion are seen. No evidence of acute infarction . Extracranial: The visualized portions of the orbits and paranasal sinuses are unremarkable. CONCLUSION: 1. Minimal periventricular white matter changes otherwise negative for acute process. 2. Partially empty sella 3. Moderate motion artifact is present. Electronically signed by: Johann Benítez MD 05/17/2018 12:03 PM EDT
--- NOTE | 2018-05-17 13:37 | P.PNFP ---
Subjective Interval history: Patient was evaluated at bedside this morning. Compared to yesterday patient seems to be doing a lot better in regards to his altered mental status. He is still unable to formulate clear sentences. He responds to some questions, but mumbles with his answers. Maintains eye contact with provider. He is able to tell us his name. When asked if he did drugs he said yes but the name of drug is still unknown. No events occurred overnight. <Meredith Chamberlain - 05/17/18 16:34> Results - Labs Result diagrams: 05/17/18 06:45 05/17/18 06:45 <Tsering Ray - 05/17/18 20:51> Abnormal lab results 05/15/18 05/16/18 05/17/18 Range/Units 04:35 22:20 00:36 WBC (4.0-11.0) th/mm3 RBC (4.50-5.90) mil/mm3 MCH (27.0-34.0) pg Neut % (Auto) (16.0-70.0) % Neut # (Auto) (1.8-7.7) th/mm3 [place] # (Auto) (0.0-0.9) th/mm3 O2 Saturation 84 L* (90-100) % ABG pCO2 35 L (38-42) mmHg ABG pO2 53 L* (61-120) mmHg ABG HCO3 21 L (22-26) mmol/L ABG Base Excess -2.8 L (-2-2) mmol/L Sodium (136-145) meq/L Chloride (98-107) meq/L BUN (7-18) mg/dL Creatinine (0.60-1.30) mg/dL Estimated GFR (>89) mL/min POC Glucose 128 H (68-110) mg/dl AST (15-37) U/L Ammonia (11-32) mcmol/L Troponin I (0.02-0.05) ng/mL Acetaminophen Less than 2.0 L (10.0-30.0) mcg/mL 05/17/18 05/17/18 05/17/18 Range/Units 06:45 06:45 06:45 WBC 15.9 H (4.0-11.0) th/mm3 RBC 3.94 L (4.50-5.90) mil/mm3 MCH 34.1 H (27.0-34.0) pg Neut % (Auto) 72.4 H (16.0-70.0) % Neut # (Auto) 11.5 H (1.8-7.7) th/mm3 [place] # (Auto) 1.3 H (0.0-0.9) th/mm3 O2 Saturation (90-100) % ABG pCO2 (38-42) mmHg ABG pO2 (61-120) mmHg ABG HCO3 (22-26) mmol/L ABG Base Excess (-2-2) mmol/L Sodium 147 H (136-145) meq/L Chloride 115 H D (98-107) meq/L BUN 47 H (7-18) mg/dL Creatinine 1.68 H (0.60-1.30) mg/dL Estimated GFR 42 L (>89) mL/min POC Glucose (68-110) mg/dl AST 40 H (15-37) U/L Ammonia 42 H (11-32) mcmol/L Troponin I 0.09 H (0.02-0.05) ng/mL Acetaminophen (10.0-30.0) mcg/mL Short CBC 05/17/18 Range/Units 06:45 WBC 15.9 H (4.0-11.0) th/mm3 Hgb 13.4 (13.0-17.0) gm/dL Hct 39.2 (39.0-51.0) % Plt Count 278 (150-450) th/mm3 BMP 05/17/18 06:45 Sodium 147 H Potassium 3.5 Chloride 115 H D Carbon Dioxide 22.2 BUN 47 H Creatinine 1.68 H Calcium 8.7 Cardiac Enzymes 05/17/18 Range/Units 06:45 Troponin I 0.09 H (0.02-0.05) ng/mL Liver Function 05/17/18 Range/Units 06:45 Total Bilirubin 1.0 (0.2-1.0) mg/dL AST 40 H (15-37) U/L ALT 38 (12-78) U/L Alkaline Phosphatase 65 (45-117) U/L Albumin 3.4 (3.4-5.0) g/dL <Tsering Ray - 05/17/18 20:51> Abnormal lab results 05/15/18 05/16/18 05/16/18 Range/Units 04:35 12:21 12:21 WBC (4.0-11.0) th/mm3 RBC (4.50-5.90) mil/mm3 MCH (27.0-34.0) pg Neut % (Auto) (16.0-70.0) % Neut # (Auto) (1.8-7.7) th/mm3 [place] # (Auto) (0.0-0.9) th/mm3 O2 Saturation (90-100) % ABG pCO2 (38-42) mmHg ABG pO2 (61-120) mmHg ABG HCO3 (22-26) mmol/L ABG Base Excess (-2-2) mmol/L Sodium (136-145) meq/L Chloride (98-107) meq/L BUN (7-18) mg/dL Creatinine (0.60-1.30) mg/dL Estimated GFR (>89) mL/min POC Glucose (68-110) mg/dl AST (15-37) U/L Ammonia (11-32) mcmol/L Troponin I (0.02-0.05) ng/mL CSF Gross Blood (1) Trace A (0) CSF Total Protein 72.5 H (15.0-45.0) mg/dL Acetaminophen Less than 2.0 L (10.0-30.0) mcg/mL 05/16/18 05/17/18 05/17/18 Range/Units 22:20 00:36 06:45 WBC (4.0-11.0) th/mm3 RBC (4.50-5.90) mil/mm3 MCH (27.0-34.0) pg Neut % (Auto) (16.0-70.0) % Neut # (Auto) (1.8-7.7) th/mm3 [place] # (Auto) (0.0-0.9) th/mm3 O2 Saturation 84 L* (90-100) % ABG pCO2 35 L (38-42) mmHg ABG pO2 53 L* (61-120) mmHg ABG HCO3 21 L (22-26) mmol/L ABG Base Excess -2.8 L (-2-2) mmol/L Sodium (136-145) meq/L Chloride (98-107) meq/L BUN (7-18) mg/dL Creatinine (0.60-1.30) mg/dL Estimated GFR (>89) mL/min POC Glucose 128 H (68-110) mg/dl AST (15-37) U/L Ammonia 42 H (11-32) mcmol/L Troponin I (0.02-0.05) ng/mL CSF Gross Blood (1) (0) CSF Total Protein (15.0-45.0) mg/dL Acetaminophen (10.0-30.0) mcg/mL 05/17/18 05/17/18 Range/Units 06:45 06:45 WBC 15.9 H (4.0-11.0) th/mm3 RBC 3.94 L (4.50-5.90) mil/mm3 MCH 34.1 H (27.0-34.0) pg Neut % (Auto) 72.4 H (16.0-70.0) % Neut # (Auto) 11.5 H (1.8-7.7) th/mm3 [place] # (Auto) 1.3 H (0.0-0.9) th/mm3 O2 Saturation (90-100) % ABG pCO2 (38-42) mmHg ABG pO2 (61-120) mmHg ABG HCO3 (22-26) mmol/L ABG Base Excess (-2-2) mmol/L Sodium 147 H (136-145) meq/L Chloride 115 H D (98-107) meq/L BUN 47 H (7-18) mg/dL Creatinine 1.68 H (0.60-1.30) mg/dL Estimated GFR 42 L (>89) mL/min POC Glucose (68-110) mg/dl AST 40 H (15-37) U/L Ammonia (11-32) mcmol/L Troponin I 0.09 H (0.02-0.05) ng/mL CSF Gross Blood (1) (0) CSF Total Protein (15.0-45.0) mg/dL Acetaminophen (10.0-30.0) mcg/mL Short CBC 05/17/18 Range/Units 06:45 WBC 15.9 H (4.0-11.0) th/mm3 Hgb 13.4 (13.0-17.0) gm/dL Hct 39.2 (39.0-51.0) % Plt Count 278 (150-450) th/mm3 BMP 0723/18 06:45 Sodium 147 H Potassium 3.5 Chloride 115 H D Carbon Dioxide 22.2 BUN 47 H Creatinine 1.68 H Calcium 8.7 Cardiac Enzymes 05/17/18 Range/Units 06:45 Troponin I 0.09 H (0.02-0.05) ng/mL Liver Function 05/17/18 Range/Units 06:45 Total Bilirubin 1.0 (0.2-1.0) mg/dL AST 40 H (15-37) U/L ALT 38 (12-78) U/L Alkaline Phosphatase 65 (45-117) U/L Albumin 3.4 (3.4-5.0) g/dL <Meredith Chamberlain - 05/17/18 13:37> - Imaging Impressions Carotid Doppler Study 05/16/18 00:00 CONCLUSION: 1. Right Internal Carotid Artery: Findings indicate >70% stenosis, but less than near occlusion. 2. Left Internal Carotid Artery: Findings indicate <50% stenosis. Lumbar Puncture Fluoroscopy 05/16/18 10:18 CONCLUSION: 1. Uncomplicated fluoroscopically guided lumbar puncture. Abdomen X-Ray 05/17/18 00:00 CONCLUSION: Status post multilevel lumbar fusion with no MR incompatible hardware identified. Head MRI 05/17/18 00:00 CONCLUSION: 1. Minimal periventricular white matter changes otherwise negative for acute process. 2. Partially empty sella 3. Moderate motion artifact is present. Liver Ultrasound 05/17/18 00:00 CONCLUSION: 1. Annular hyperechoic mass in the liver which is nonspecific but may represent a cavernous hemangioma. This could be further evaluated with outpatient CT or MR with contrast. 2. Small atrophic right kidney with cortical thinning and increased echogenicity characteristic of medical renal disease. There is a small benign- appearing cystic structure. 3. The gallbladder is contracted and appearance with mild parents gallbladder wall thickening. There is no evidence of cholelithiasis. 4. Suboptimal limited study. <Tsering Ray - 05/17/18 20:51> Impressions Carotid Doppler Study 05/16/18 00:00 CONCLUSION: 1. Right Internal Carotid Artery: Findings indicate >70% stenosis, but less than near occlusion. 2. Left Internal Carotid Artery: Findings indicate <50% stenosis. Lumbar Puncture Fluoroscopy 05/16/18 10:18 CONCLUSION: 1. Uncomplicated fluoroscopically guided lumbar puncture. Abdomen X-Ray 05/17/18 00:00 CONCLUSION: Status post multilevel lumbar fusion with no MR incompatible hardware identified. Head MRI 05/17/18 00:00 CONCLUSION: 1. Minimal periventricular white matter changes otherwise negative for acute process. 2. Partially empty sella 3. Moderate motion artifact is present. <LylydavidMeredith galeana - 05/17/18 13:37> Physical Exam Vital signs: Vital Signs 05/17/18 00:00 05/17/18 04:00 05/17/18 09:10 Temperature 97.9 F 97.5 F L 97.4 F L Pulse Rate 72 50 L 68 Respiratory Rate 18 14 20 Blood Pressure 166/82 H 152/78 H 148/62 H Pulse Oximetry 18 L 100 100 05/17/18 12:00 05/17/18 12:38 05/17/18 18:08 Temperature 97.7 F 97.4 F L Pulse Rate 69 75 45 L Respiratory Rate 18 16 Blood Pressure 130/80 200/90 H Pulse Oximetry 99 98 Intake & Output 05/17/18 05/17/18 05/18/18 06:59 18:59 06:59 Intake Total 100 / 100 462.5 / 462.5 Output Total 900 / 900 Balance -800 / -800 462.5 / 462.5 Weight 72.8 kg Intake: IV 100 / 100 462.5 / 462.5 Zosyn 4.5 GM Premix 4.5 gm In 100 / 100 200 / 200 100 ml @ 200 mls/hr IV.SIG Q6H [facility] Rx#:[id number] Vancomycin Inj 1,250 MG In NS 262.5 / 262.5 Inj 250 ML @ 250 mls/hr IV.SIG Q24H [facility] Rx#:[id number] Oral 0 / 0 Output: Urine Amount (Catheter) 900 / 900 Indwelling Urethral Catheter 900 / 900 <Tsering Ray - 05/17/18 20:51> Vital Signs 05/16/18 13:55 05/16/18 16:00 05/16/18 20:00 Temperature 98.5 F 98.1 F Pulse Rate 87 80 Respiratory Rate 18 20 Blood Pressure 105/66 112/70 Pulse Oximetry 100 98 98 05/17/18 00:00 05/17/18 04:00 05/17/18 09:10 Temperature 97.9 F 97.5 F L 97.4 F L Pulse Rate 72 50 L 68 Respiratory Rate 18 14 20 Blood Pressure 166/82 H 152/78 H 148/62 H Pulse Oximetry 18 L 100 100 05/17/18 12:38 Temperature 97.7 F Pulse Rate 75 Respiratory Rate 18 Blood Pressure 130/80 Pulse Oximetry 99 Intake & Output 05/16/18 05/17/18 05/17/18 18:59 06:59 18:59 Intake Total 2099 100 / 100 100 / 100 Output Total 900 / 900 Balance 2099 -800 / -800 100 / 100 Weight 74.7 kg 72.8 kg Intake: IV 2099 100 / 100 100 / 100 Ampicillin Inj 2,000 MG In NS 100 / 100 Inj 100 ML @ 400 mls/hr IV.SIG ONCE ONE Rx#:[id number] Zosyn 4.5 GM Premix 4.5 gm In 100 / 100 100 / 100 100 ml @ 200 mls/hr IV.SIG Q6H [facility] Rx#:[id number] NS Inj 1,000 ML @ Wide Open IV. 1999 SIG .Q0M [facility] Rx#:[id number] Oral 0 / 0 Output: Urine Amount (Catheter) 900 / 900 Indwelling Urethral Catheter 900 / 900 <Meredith Chamberlain 05/17/18 13:37> Narrative: Elderly male laying in bed in no acute distress. <Meredith Chamberlain 05/17/18 13:37> - Routine Respiratory Exam Comments: Respiratory exam limited due to patient's altered mental status. Unable to auscultate posteriorly. She does not respond to commands. <Meredith Chamberlain 05/17/18 13:37> - Routine Cardiovascular Exam Present: RRR, S1, S2 <Meredith Chamberlain 05/17/18 13:37> - Routine Abdominal Exam Present: soft, normoactive bowel sounds. Absent: tenderness <Meredith Chamberlain 05/17/18 13:37> - Routine Neurological Exam Present: alert <Meredith Chamberlain 05/17/18 13:37> Patient only oriented 1. Speech is incoherent. Patient unable to respond to commands. <Meredith Chamberlain 05/17/18 13:37> - Urinary Catheter Management Indwelling Urethral Catheter Cath placed during this visit: no <Tsering Ray - 05/17/18 20:51> yes, but has since been removed by the nurse <Meredith Chamberlain 05/17/18 16:34> Reason for continuing: Decision to DC catheter <Meredith Chamberlain 05/17/18 13: 37> Insertion date: 05/16/18 <Meredith Chamberlain 05/17/18 13:37> Insertion time: 09:30 <Meredith Chamberlain 05/17/18 13:37> Removal date: 05/17/18 <Meredith Chabmerlain 05/17/18 13:37> Removal time: 12:32 <Meredith Chamberlain 05/17/18 13:37> Assessment and Plan - Assessment (1) SIRS (systemic inflammatory response syndrome) Code(s): R65.10 - Systemic inflammatory response syndrome (SIRS) of non- infectious origin without acute organ dysfunction Status: Acute (2) Altered mental status Code(s): R41.82 - Altered mental status, unspecified Status: Acute (3) Elevated serum creatinine Code(s): R79.89 - Other specified abnormal findings of blood chemistry Status : Acute (4) Elevated troponin Code(s): R74.8 - Abnormal levels of other serum enzymes Status: Acute (5) T wave inversion in EKG Code(s): R94.31 - Abnormal electrocardiogram [ECG] [EKG] Status: Chronic (6) Nutrition, metabolism, and development symptoms Code(s): R63.8 - Other symptoms and signs concerning food and fluid intake Status: Acute (7) DVT prophylaxis Status: Acute <Tsering Ray - 05/17/18 20:51> (1) SIRS (systemic inflammatory response syndrome) Code(s): R65.10 - Systemic inflammatory response syndrome (SIRS) of non- infectious origin without acute organ dysfunction Status: Acute Plan: Meets 2 out of 4 criteria for sepsis: Tachypnea over 20 breaths per minute, WBC over 12,000 cells RR 22, WBC 19.5 Concerns for severe sepsis as follows Lactic acid 2.1 Decreased urine output over the last 24 hours Altered level of consciousness Chest x-ray negative Urine: Occasional bacteria, follow-up urine culture lumbar puncture: elevated proteins. 05/17: Patient currently on vancomycin and Zosyn. White count looks reassuring as it decreases from 19.5 to 15.9. Patient remains afebrile. Follow-up lactic acid protocol Follow urine output Neurochecks every 4 hours (2) Altered mental status Code(s): R41.82 - Altered mental status, unspecified Status: Acute Plan: Patient met SIRS criteria on admission. Tachypnea over 20 breaths per minute, WBC: 19.5. Source of infection to date. Differential diagnosis: Viral encephalopathy vs drug intoxication vs liver toxicity vs psychosis Cardiac workup: Troponin were high upon admission: 0.11, now trending downwards at 0.09 today. EKG shows: Normal sinus rhythm, possible ventricular hypertrophy. TSH and free T4 were normal. No episodes of hypoglycemia. Negative influenza A'sB antigen CT head: negative Chest x-ray negative MRI brain negative. Ultrasound carotid: Unsure about this evaluation of the stenosis of the right internal carotid artery. Will clarify with Dr Ji today. f/u EEG CSF: High proteins: 72.5. Consider viral etiology. CMP shows elevated AST: 40. Elevated Ammonia: 42. Concerns for liver toxicity/ low cirrhosis. Could be a cause of his altered mental status. Will order liver ultrasound for full further evaluation. Patient states that he uses drugs. Concerns for drug use: UDS was negative on admission. Will order OB drug screen for more extensive screening. Psychiatry consulted. Appreciate recommendations. Bedrest with fall precautions, soft restraints, bed near nursing station Haldol as needed for agitation Follow-up vitamin B1, B12, MMA, RPR, sed rate, GUS (3) Elevated serum creatinine Code(s): R79.89 - Other specified abnormal findings of blood chemistry Status : Acute Plan: Elevated creatinine and possible oliguria as reported by ED physician Creatinine down from 2.16 to1.68 today. Improving. Likely prerenal failure due to dehydration, sepsis. IV fluids: Normal saline at 120ml/hr Continue to monitor I&Os. (4) Elevated troponin Code(s): R74.8 - Abnormal levels of other serum enzymes Status: Acute Plan: Elevated troponin of 0.11 on admission now decreased 0.09 today. EKG shows normal sinus rhythm with possible ventricular hypertrophy. Continue to treat renal failure with adequate hydration. Continue treatment of sepsis as above. (5) T wave inversion in EKG Code(s): R94.31 - Abnormal electrocardiogram [ECG] [EKG] Status: Chronic Plan: ACS rule out was negative. No electrolyte abnormalities. (6) Nutrition, metabolism, and development symptoms Code(s): R63.8 - Other symptoms and signs concerning food and fluid intake Status: Acute Plan: Fluids: Normal saline at maintenance Electrolytes: Follow-up BMP and replete as needed Nutrition: Swallow eval: Moderate oral phase dysphasia. Recommends pured solids and thin liquids. Medications should be crushed in pure. Full feeding assistance needed. Normal saline at maintenance (7) DVT prophylaxis Status: Acute Plan: GI prophylaxis: Not indicated DVT prophylaxis: SCDs <Meredith Chamberlain - 05/17/18 16:34> - Assessment and Plan 62-year-old male, unknown prior medical history, presenting to ED [place] act by police force for altered mental status, also meets SIRS criteria. <Meredith Chamberlain - 05/17/18 13:37> - Attending Attestation Patient seen, examined, and discussed this morning with resident team. I agree with assessment and management as documented with me. Pt is able to tell us his name this morning. He is turning his head side to side -which is an improvement from yesterday. Hepatic encephalopathy - pt with elevated ammonia level. Provide lactulose daily scheduled to help. Check liver US. <Tsering Ray - 05/17/18 20:51>
[2018-05-17] MEDS: Vancomycin Inj 1,250 MG in Sodium Chlor 0.9% Inj 250 ML IV.SIG SCH (14:40)
[2018-05-17] MEDS: Folic Acid 1 MG Tablet PO SCH (14:41)
[2018-05-17 15:23] LABS: Anti-Nuclear Antibody Screen Neg (Neg)
--- NOTE | 2018-05-17 15:34 | P.CONPSY ---
Provisional Diagnosis Admission Date: May 16, 2018 11:41 Merino I.: 1. Delirium due to [facility] Rule-out component of primary psychiatric illness Merino II.: Deferred History of Present Illness Service: Psychiatry Consult date: 05/17/18 Requesting Physician: Meredith Chamberlain Reason for Consult: Altered mental status Primary Care Provider: UNKNOWN History of Present Illness: Mr. Rodriguez is a 62-year-old male of uncertain past psychiatric history who presents under a Crespo act by the [employer] alleging that the patient flagged down the officer saying that he had vehicle trouble. The officer could find no problem with the patient's vehicle but noted that the patient was disoriented. Patient has been admitted to the medical floor for workup of SIRS and altered mental status. Reviewing the electronic medical record, it appears this is patient's first visit to [place]. Patient seen and examined. Chart reviewed. On my examination today, the patient is quite confused. He is in soft wrist restraints. He is oriented to person only. He cannot complete naming or repetition tasks. He is inattentive and cannot complete tasks requiring focus/concentration such as WORLD backward. His speech is coprolalic and rambling. He appears frankly internally stimulated. He refers to his IV pole as "Bones" and has a protracted, if largely incomprehensible, conversation with it. I cannot get him to answer any of my questions in the psychiatric ROS in a meaningful fashion. When I ask if he has a psychiatric history, he says "yeah" but cannot elaborate. He cannot say if he has been using substances, although his basic UTox is negative. He alludes to having daughters but otherwise can provide no social history. Psychiatric interview is severely limited by patient's degree of psychiatric symptomatology, and I am unable to obtain any meaningful past psychiatric, family, chemical dependency or social history for the same reason. Patient verbalizes no acute physical complaints. I did call over to [facility] on the off chance that they might have had some history with this patient, but they have no record of the patient. I tried to get the patient to provide me with a number for collateral information, but he cannot. I see one of the [employer] nurses tried to reach patient's mother without success, but I cannot find mother's number in the record to try again. Review of Systems unobtainable due to mental status PMFSH - History History Provided By: Manager Engagement / EMT, Law Enforcement - Medical / Surgical Hx Neg / Unobtainable Medical Problems Denied: Unable to Obtain - Medical History Medical History: Medical History (Last Reviewed 05/17/18 @ 03:21 by Riana Aranda MD, R2) Medical history unknown - Tobacco History Second Hand Smoke Exposure: No Smoking Status: Cognitive impairment - Alcohol History How Often Do You Have a Drink Containing Alcohol: Unable to Obtain - Substance Use History Substance History: No History of Abuse, Unable to Obtain - Travel History Recent Travel in the [place] Within the Last 8 Weeks: Yes Recent Travel Out of the Country Within the Last 8 Weeks: No - Immunization History Tetanus Immunization: <5 Years Hx Influenza Vaccine This Season: Yes Medications and Allergies Active Medications: Active Medications Al Hydroxide/Mg Hydroxide (Milk Of Magnkristel Liq) 30 ml PO Q12H PRN PRN Reason: Mild Constipation Bacitracin (Baciguent Oint) 1 applicatio TOPICAL TID [facility] Bisacodyl (Dulcolax Supp) 10 mg RECTAL DAILY PRN PRN Reason: SEVERE CONSITIPATION Flumazenil (Romazecon Inj) 0.2 mg IV.PUSH Q1M PRN PRN Reason: OVERSEDATION Folic Acid (Folic Acid) 1 mg PO DAILY [facility] Last Admin: 05/17/18 14:41 Dose: 1 mg Haloperidol Lactate (Haldol Inj) 1 mg IV.PUSH Q15M PRN PRN Reason: for severe agitation Last Admin: 05/17/18 00:40 Dose: 1 mg Sodium Chloride (Ns Inj) 1,000 mls @ 0 mls/hr IV.SIG .Q0M [facility] Last Admin: 05/16/18 21:35 Dose: 999 mls/hr Sodium Chloride (Ns Inj) 700 mls @ 0 mls/hr IV.SIG .Q0M [facility] Last Admin: 05/16/18 09:58 Dose: 700 mls/hr Sodium Chloride (Ns Inj) 1,000 mls @ 0 mls/hr IV.SIG .Q0M [facility] Sodium Chloride (Ns Inj) 1,000 mls @ 120 mls/hr IV.CONT .Q8H20M [facility] Last Admin: 05/17/18 14:39 Dose: Not Given Pharmacy Profile Note (Vancomycin Consult Pharmacy) 0 mls @ 0 mls/hr OTHER UNSCH [facility] Piperacillin/Tazobactam/Dextrose (Zosyn 4.5 Gm Premix) 4.5 gm in 100 mls @ 200 mls/hr IV.SIG Q6H [facility] Last Infusion: 05/17/18 14:40 Dose: Infused Vancomycin HCl 1,250 mg/ (Sodium Chloride) 262.5 mls @ 250 mls/hr IV.SIG Q24H [facility] Last Admin: 05/17/18 14:40 Dose: 250 mls/hr Lactulose (Lactulose Liq) 30 ml PO DAILY [facility] Last Admin: 05/17/18 14:41 Dose: 30 ml Lorazepam (Ativan Inj) 1 mg IV.PUSH ONCE PRN PRN Reason: SEDATION Last Admin: 05/16/18 12:15 Dose: 1 mg Lorazepam (Ativan) 1 mg PO Q4H PRN PRN Reason: for CIWA 8-10 Last Admin: 05/17/18 08:57 Dose: 1 mg Lorazepam (Ativan Inj) 2 mg IV.PUSH Q2H PRN PRN Reason: for CIWA 11-14 Last Admin: 05/17/18 01:57 Dose: 2 mg Lorazepam (Ativan Inj) 2 mg IV.PUSH Q1H PRN PRN Reason: for CIWA 15-20 Lorazepam (Ativan Inj) 2 mg IV.PUSH Q15M PRN PRN Reason: for CIWA > 20 Lorazepam (Ativan Inj) 1 mg IV.PUSH Q4H PRN PRN Reason: for CIWA 8-10 Last Admin: 05/16/18 18:00 Dose: 1 mg Lorazepam (Ativan) 2 mg PO Q2H PRN PRN Reason: for CIWA 11-14 Miscellaneous Information ([facility] Ordered Lab Info) 0 each OTHER ONCE ONE Stop: 05/19/18 10:46 Multivitamins (Theragran) 1 tab PO DAILY [facility] Last Admin: 05/17/18 14:41 Dose: 1 tab Sennosides (Senokot) 17.2 mg PO Q12H PRN PRN Reason: Moderate Constipation Allergies Allergy/AdvReac Type Severity Reaction Status Date / Time No Allergy Information Allergy Unverified 05/15/18 00:54 Available Home Medications Medication Instructions Recorded Confirmed Type No Known Home Medications 05/15/18 05/15/18 History Exam Vital signs: Vital Signs 05/16/18 16:00 05/16/18 20:00 05/17/18 00:00 Temperature 98.5 F 98.1 F 97.9 F Pulse Rate 87 80 72 Respiratory Rate 18 20 18 Blood Pressure 105/66 112/70 166/82 H Pulse Oximetry 98 98 18 L 05/17/18 04:00 05/17/18 09:10 05/17/18 12:00 Temperature 97.5 F L 97.4 F L Pulse Rate 50 L 68 69 Respiratory Rate 14 20 Blood Pressure 152/78 H 148/62 H Pulse Oximetry 100 100 05/17/18 12:38 Temperature 97.7 F Pulse Rate 75 Respiratory Rate 18 Blood Pressure 130/80 Pulse Oximetry 99 Intake & Output 05/16/18 05/17/18 05/17/18 18:59 06:59 18:59 Intake Total 2100 / 2100 100 / 100 200 / 200 Output Total 900 / 900 Balance 2100 / 2100 -800 / -800 200 / 200 Weight 74.7 kg 72.8 kg Intake: IV 2100 / 2100 100 / 100 200 / 200 Ampicillin Inj 2,000 MG In NS 100 / 100 Inj 100 ML @ 400 mls/hr IV.SIG ONCE ONE Rx#:[id number] Zosyn 4.5 GM Premix 4.5 gm In 100 / 100 200 / 200 100 ml @ 200 mls/hr IV.SIG Q6H [facility] Rx#:[id number] NS Inj 1,000 ML @ Wide Open IV. 1999 SIG .Q0M [facility] Rx#:[id number] Oral 0 / 0 Output: Urine Amount (Catheter) 900 / 900 Indwelling Urethral Catheter 900 / 900 Narrative: Physical examination completed by the primary team. On my examination today, the patient has a mild resting hand tremor. No diaphoresis, no tongue fasciculations, no mydriasis. No piloerection or rhinorrhea. EOMI. No other motor abnormalities noted. I do note several large, scabbed lesions on his bilateral shins. Labs and vital signs reviewed: Laboratory Tests 05/15/18 05/16/18 05/16/18 04:35 09:20 09:35 WBC Hgb Plt Count Sodium Potassium Chloride Carbon Dioxide BUN Creatinine Estimated GFR AST ALT Alkaline Phosphatase Ammonia Total Creatine Kinase 401 H Vitamin B12 TSH 0.526 Free T4 Urine Opiates Screen Neg Ur Barbiturates Screen Neg Ur Amphetamines Screen Neg U Benzodiazepines Scrn Neg Urine Cocaine Screen Neg U Cannabinoids Screen Neg Serum Alcohol Less than 3 GUS Screen RPR 05/17/18 05/17/18 05/17/18 06:45 06:45 06:45 WBC 15.9 H Hgb 13.4 Plt Count 278 Sodium Potassium Chloride Carbon Dioxide BUN Creatinine Estimated GFR AST ALT Alkaline Phosphatase Ammonia 42 H Total Creatine Kinase Vitamin B12 TSH Free T4 Urine Opiates Screen Ur Barbiturates Screen Ur Amphetamines Screen U Benzodiazepines Scrn Urine Cocaine Screen U Cannabinoids Screen Serum Alcohol GUS Screen Neg RPR Nonreactive 05/17/18 06:45 WBC Hgb Plt Count Sodium 147 H Potassium 3.5 Chloride 115 H D Carbon Dioxide 22.2 BUN 47 H Creatinine 1.68 H Estimated GFR 42 L AST 40 H ALT 38 Alkaline Phosphatase 65 Ammonia Total Creatine Kinase Vitamin B12 692 TSH Free T4 1.42 Urine Opiates Screen Ur Barbiturates Screen Ur Amphetamines Screen U Benzodiazepines Scrn Urine Cocaine Screen U Cannabinoids Screen Serum Alcohol GUS Screen RPR CSF studies reviewed. Impressions Carotid Doppler Study 05/16/18 00:00 CONCLUSION: 1. Right Internal Carotid Artery: Findings indicate >70% stenosis, but less than near occlusion. 2. Left Internal Carotid Artery: Findings indicate <50% stenosis. Chest X-Ray 05/16/18 09:13 CONCLUSION: No acute cardiopulmonary disease. There is no evidence of pneumonia. Head CT 05/16/18 09:15 CONCLUSION: 1. Negative noncontrast head CT. Abdomen X-Ray 05/17/18 00:00 CONCLUSION: Status post multilevel lumbar fusion with no MR incompatible hardware identified. Head MRI 05/17/18 00:00 CONCLUSION: 1. Minimal periventricular white matter changes otherwise negative for acute process. 2. Partially empty sella 3. Moderate motion artifact is present. Liver Ultrasound 05/17/18 00:00 CONCLUSION: 1. Annular hyperechoic mass in the liver which is nonspecific but may represent a cavernous hemangioma. This could be further evaluated with outpatient CT or MR with contrast. 2. Small atrophic right kidney with cortical thinning and increased echogenicity characteristic of medical renal disease. There is a small benign- appearing cystic structure. 3. The gallbladder is contracted and appearance with mild parents gallbladder wall thickening. There is no evidence of cholelithiasis. 4. Suboptimal limited study. EKG normal sinus rhythm with QTC of 434 ms, not prolonged. Microbiology 05/16/18 09:20 Urine Culture - Preliminary Clean Catch Urine No growth in 24 hours 05/16/18 09:35 Aerobic Blood Culture - Preliminary Blood - Peripheral No growth in 1 day Anaerobic Blood Culture - Preliminary No growth in 1 day 05/16/18 08:50 Aerobic Blood Culture - Preliminary Blood - Peripheral No growth in 1 day Anaerobic Blood Culture - Preliminary No growth in 1 day 05/16/18 12:21 Gram Stain - Final Lumbar Puncture Mental Status Examination Appearance: Disheveled Consciousness: Alert Orientation: Person Motor Activity: Other (Motor exam as above) Speech: Incoherent Language: Other (Coprolalia) Fund of Knowledge: Inadequate Attention and Concentration: Easily distracted Memory: Impaired Mood: Irritable Affect: Other (Dysphoric) Thought Process & Associations: Disorganized Thought Content: Other (Unable to ascertain secondary to thought disorder) Hallucination Type: Other (Frankly internally stimulated) Delusion Type: Other (Unable to ascertain secondary to thought disorder) Insight: Poor Judgment: Poor Mental Status Exam Remarks: Unable to determine whether patient has SI or HI secondary to thought disorder Assessment and Plan - Assessment (1) Delirium due to another medical condition Code(s): F05 - Delirium due to known physiological condition Status: Acute (2) SIRS (systemic inflammatory response syndrome) Code(s): R65.10 - Systemic inflammatory response syndrome (SIRS) of non- infectious origin without acute organ dysfunction Status: Acute - Plan Plan: 62-year-old male of uncertain past psychiatric history presently admitted to the medical floor under a Crespo act. Psychiatry is consulted secondary to altered mental status. On my examination today, the patient is quite delirious. He continues to have a mild leukocytosis, and I note there is concern for possible viral [employer] infection as the patient has elevated CSF protein. He also has RIMMA and mildly elevated ammonia. The patient is an exceedingly poor historian at present and collateral is wanting. Contribution from primary psychiatric illness cannot be ruled out. --Agree with obtaining extended urine toxicology screening as has already been ordered. Consider rechecking CK to ensure this is downtrending. Consider checking HIV screen. Consider checking thiamine level and RBC folate. Consider EEG and also checking 14-3-3 since you already have CSF sample. Consider further workup for hypopituitarism in light of empty sella finding. Otherwise, extensive AMS workup has already been undertaken, and I have nothing more to suggest in the way of workup. --Could consider initiation of antipsychotic for empiric management of delirium. You could try Zyprexa 5mg PO/IM qHS. Could consider additional 5mg IM BID p.r.n. severe agitation. Trend QTc if antipsychotic requirement is high (i.e. if patient makes maximal use of p.r.n.s). Otherwise, consider checking EKG once after 2-3 days of scheduled Zyprexa. --General delirium management recommendations including: Avoiding use of benzodiazepines (except to manage GABAergic withdrawal), opiates, anticholinergics and antihistamines as all can worsen mental status. Limit use of restraints and consider sitter for behavioral redirection. Aggressive treatment of any urinary retention/constipation. Assistive devices such as eye glasses/hearing aids if warranted at the bedside. Frequent reorientation and early mobilization. --I will leave Crespo Act in place for now pending reassessment. Case d/w Dr. Chamberlain. Thank you very much for this consultation. Please call or page [phone] during daylight hours with questions. I will plan to follow-up later in the week. Justification for Continued Inpatient Stay: Per primary team.
--- NOTE | 2018-05-17 15:47 | US ---
EXAM DATE: 05/17/2018 2:16 PM EDT AGE/SEX: 62 years / Male INDICATIONS: Elevated liver function tests. Confusion. CLINICAL DATA: This is the patient's initial encounter. Patient reports that signs and symptoms have been present for 1 day and indicates a pain score of Nonresponsive. MEDICAL/SURGICAL HISTORY: . CVA. Confusion. . Lumbar fusion. COMPARISON: No prior exams available for comparison. MEASUREMENTS: Liver:__ 15.4 cm. Common Bile Duct:__ 6mm. Right Kidney:__ 8.9 x 6.3 x 4.3 cm. FINDINGS: Suboptimal examination. The patient is confused and was restrained and refused to roll into the decubitus position. Liver: Grossly normal in size and shape. There is a hyperechoic mass in the right lobe adjacent to th e gallbladder fossa region. This measures up to 3 x 1.6 x 4.6 cm in diameter. There is no internal co kylee flow. The margins are lobular area there were no other focal lesions or ductal dilatation. Portal Vein: Hepatopedal flow seen in portal vein. Common Duct: No intraluminal mass or stone visualized. Gallbladder: The gallbladder is contracted in appearance with apparent mild gallbladder wall thicken ing measuring up to 4 to 5 mm in size. There is no evidence of cholelithiasis. Pancreas: Not well visualized. Right Kidney: The right kidney is small and atrophic in appearance with cortical thinning and increa sed echogenicity. There is a small cystic structure along the medial kidney measuring up to 1.3 cm. Other: None. CONCLUSION: 1. Annular hyperechoic mass in the liver which is nonspecific but may represent a cavernous hemangio ma. This could be further evaluated with outpatient CT or MR with contrast. 2. Small atrophic right kidney with cortical thinning and increased echogenicity characteristic of m edical renal disease. There is a small benign-appearing cystic structure. 3. The gallbladder is contracted and appearance with mild parents gallbladder wall thickening. There is no evidence of cholelithiasis. 4. Suboptimal limited study. Electronically signed by: Rui Staton MD 05/17/2018 3:46 PM EDT
--- NOTE | 2018-05-17 16:25 | MG ---
cc: Med Simental MD NOTE: Zak Acted, confused, 62-year-old. FINDINGS: Diffuse beta rhythms are seen, 10-12 Hz posterior rhythm is noted, 60 microvolts. The recording overall is synchronous and symmetric. No epileptiform or seizure activity was noted. Hyperventilation was not performed. Photic stimulation is performed without significant posterior driving. He is hallucinating. IMPRESSION: Some medication effect. Otherwise, a normal electroencephalogram. MD SHELBI Schwab/DIO , 03:53 PM , 04:24 PM
--- NOTE | 2018-05-18 00:18 | ECG ---
Date Performed: 05/16/2018 Time Performed: 20:44:09 PTAGE: 62 years EKG: Sinus rhythm PROBABLE INFERIOR MYOCARDIAL INFARCTION , PROBABLY OLD WITH POSTERIOR EXTENSION ABNORMAL ECG PREVIOUS TRACING : 05/16/2018 18.21 Since the previous tracing, no significant change noted DOCTOR: Jimbo Balderrama Interpretating Date/Time 05/18/2018 00:16:54
--- NOTE | 2018-05-18 00:22 | ECG ---
Date Performed: 05/16/2018 Time Performed: 18:21:22 PTAGE: 62 years EKG: Sinus rhythm NONSPECIFIC T-WAVE ABNORMALITY BORDERLINE ECG PREVIOUS TRACING : 05/16/2018 09.14 Since the previous tracing, no significant change noted DOCTOR: Jimbo Balderrama Interpretating Date/Time 05/18/2018 00:20:34
--- NOTE | 2018-05-18 00:33 | ECG ---
Date Performed: 05/16/2018 Time Performed: 09:14:32 PTAGE: 62 years EKG: Sinus rhythm POSSIBLE LEFT ATRIAL ENLARGEMENT POSSIBLE LEFT VENTRICULAR HYPERTROPHY MINIMAL ST DEPRESSION ABNORMA L ECG INTERPRETATION BASED ON A DEFAULT AGE OF 40 YEARS NO PREVIOUS TRACING DOCTOR: Jimbo Balderrama Interpretating Date/Time 05/18/2018 00:31:15
[2018-05-18] MEDS: Sod Chloride 0.9% Inj 1,000 ML IV.CONT SCH ×2 (01:23→23:17)
[2018-05-18] MEDS: Piperacil/Tazo 4.5 GM Premix 4.5 GM/100 ML BAG IV.SIG SCH ×4 (02:19→22:16)
[2018-05-18] MEDS: Sod Chloride 0.9% Inj 1,000 ML IV.SIG SCH ×2 (02:19→11:10)
[2018-05-18] MEDS: Folic Acid 1 MG Tablet PO SCH (09:09)
[2018-05-18] MEDS: Vancomycin Inj 1,250 MG in Sodium Chlor 0.9% Inj 250 ML IV.SIG SCH (14:00)
[2018-05-18 14:03] LABS: Baso # (Auto) 0.1 th/mm3 (0.0-0.2); Baso % (Auto) 0.3 % (0.0-2.0); Eos # (Auto) 0.2 th/mm3 (0.0-0.4); Eos % (Auto) 1.3 % (0.0-4.0); Hematocrit 41.4 % (39.0-51.0); Hemoglobin 14.2 gm/dL (13.0-17.0); Lymph # (Auto) 2.6 th/mm3 (1.0-4.8); Lymph % (Auto) 16.7 % (9.0-44.0); Mean Corpuscular HGB Conc 34.2 % (32.0-36.0); Mean Corpuscular Hemoglobin 33.9 pg (27.0-34.0); Mean Corpuscular Volume 99.2 fL (80.0-100.0); Mean Platelet Volume 9.5 fL (7.0-11.0); Mono # (Auto) 0.9 th/mm3 (0.0-0.9); Mono % (Auto) 5.7 % (0.0-8.0); Neut # (Auto) 11.9 th/mm3 (1.8-7.7); Platelet Count 284 th/mm3 (150-450); Red Blood Count 4.18 mil/mm3 (4.50-5.90); Red Cell Distribution Width 12.7 % (11.6-17.2); White Blood Count 15.6 th/mm3 (4.0-11.0)
--- NOTE | 2018-05-18 14:04 | P.PNFP ---
Subjective Interval history: Patient evaluated at bedside this morning. His altered mental status seems to be improving from yesterday. He is oriented to person. Patient believes that he is in the year 2007 and unsure of date and time. Speech is more coherent. He is able to follow commands today. Unsure of where he actually lives but says he has a multiple residence in [facility]; [place], and [facility]. Patient states that he has a mother in the [place] area but unsure of her number. He also has a friend All Elizondo in [place], [place]. He states that he is trying to fill in the blanks and that this will take some time. He is still unsure of how he ended up in the hospital. He is able to deny any chest pain, shortness of breath, abdominal pain today. <Meredith Chamberlain - 05/18/18 15:07> Results - Labs Result diagrams: 05/18/18 13:45 05/18/18 13:45 <Tsering Ray - 05/18/18 20:06> Abnormal lab results 05/18/18 05/18/18 05/18/18 Range/Units 13:45 13:45 13:45 WBC 15.6 H (4.0-11.0) th/mm3 RBC 4.18 L (4.50-5.90) mil/mm3 Neut % (Auto) 76.0 H (16.0-70.0) % Neut # (Auto) 11.9 H (1.8-7.7) th/mm3 Sodium 148 H (136-145) meq/L Potassium 3.3 L (3.5-5.1) meq/L Chloride 114 H (98-107) meq/L BUN 27 H (7-18) mg/dL Creatinine 1.32 H (0.60-1.30) mg/dL Estimated GFR 55 L (>89) mL/min Ammonia 59 H (11-32) mcmol/L Hep C IgG Ab (Nonreactive) 05/18/18 Range/Units 13:45 WBC (4.0-11.0) th/mm3 RBC (4.50-5.90) mil/mm3 Neut % (Auto) (16.0-70.0) % Neut # (Auto) (1.8-7.7) th/mm3 Sodium (136-145) meq/L Potassium (3.5-5.1) meq/L Chloride (98-107) meq/L BUN (7-18) mg/dL Creatinine (0.60-1.30) mg/dL Estimated GFR (>89) mL/min Ammonia (11-32) mcmol/L Hep C IgG Ab Reactive H (Nonreactive) Short CBC 05/18/18 Range/Units 13:45 WBC 15.6 H (4.0-11.0) th/mm3 Hgb 14.2 (13.0-17.0) gm/dL Hct 41.4 (39.0-51.0) % Plt Count 284 (150-450) th/mm3 BMP 05/18/18 13:45 Sodium 148 H Potassium 3.3 L Chloride 114 H Carbon Dioxide 24.0 BUN 27 H Creatinine 1.32 H Calcium 9.0 Liver Function 05/18/18 Range/Units 13:45 Total Bilirubin 0.8 (0.2-1.0) mg/dL AST 29 (15-37) U/L ALT 33 (12-78) U/L Alkaline Phosphatase 64 (45-117) U/L Albumin 3.6 (3.4-5.0) g/dL <Tesring Ray - 05/18/18 20:06> - Imaging Impressions Liver Ultrasound 05/17/18 00:00 CONCLUSION: 1. Annular hyperechoic mass in the liver which is nonspecific but may represent a cavernous hemangioma. This could be further evaluated with outpatient CT or MR with contrast. 2. Small atrophic right kidney with cortical thinning and increased echogenicity characteristic of medical renal disease. There is a small benign- appearing cystic structure. 3. The gallbladder is contracted and appearance with mild parents gallbladder wall thickening. There is no evidence of cholelithiasis. 4. Suboptimal limited study. <Meredith Chamberlain - 05/18/18 14:04> Physical Exam Vital signs: Vital Signs 05/17/18 23:54 05/18/18 00:00 05/18/18 03:52 Temperature 98.1 F Pulse Rate 47 L 50 L 46 L Respiratory Rate 18 Blood Pressure 178/80 H Pulse Oximetry 96 05/18/18 04:00 05/18/18 08:00 05/18/18 12:00 Temperature 97.2 F L 97.7 F 97.4 F L Pulse Rate 55 L 75 46 L Respiratory Rate 18 18 17 Blood Pressure 182/78 H 207/99 H 185/113 H Pulse Oximetry 95 100 100 05/18/18 16:00 Temperature 98.0 F Pulse Rate 53 L Respiratory Rate 18 Blood Pressure 176/83 H Pulse Oximetry 100 Intake & Output 05/18/18 05/18/18 05/19/18 06:59 18:59 06:59 Intake Total 200 / 200 1360 / 1360 Balance 200 / 200 1360 / 1360 Weight 72.5 kg Intake: IV 200 / 200 1000 / 1000 NS Inj 1,000 ML @ 120 mls/hr IV 0 / 0 .CONT .Q8H20M SJ Rx#:[id number] Zosyn 4.5 GM Premix 4.5 gm In 200 / 200 100 ml @ 200 mls/hr IV.SIG Q6H SJ Rx#:[id number] NS Inj 1,000 ML @ Wide Open IV. 1000 / 1000 SIG .Q0M SJ Rx#:[id number] Oral 360 / 360 Other: # Incontinent Voids 3 Date of Last Bowel Movement 05/18/18 # Incontinent Bowel Movements 1 <Tsering Ray - 05/18/18 20:06> Vital Signs 05/17/18 18:08 05/17/18 20:00 05/17/18 23:54 Temperature 97.4 F L 98.4 F Pulse Rate 45 L 72 47 L Respiratory Rate 16 18 Blood Pressure 200/90 H 180/80 H Pulse Oximetry 98 99 05/18/18 00:00 05/18/18 03:52 05/18/18 04:00 Temperature 98.1 F 97.2 F L Pulse Rate 50 L 46 L 55 L Respiratory Rate 18 18 Blood Pressure 178/80 H 182/78 H Pulse Oximetry 96 95 Intake & Output 05/17/18 05/18/18 05/18/18 18:59 06:59 18:59 Intake Total 462.5 / 462.5 200 / 200 1000 / 1000 Balance 462.5 / 462.5 200 / 200 1000 / 1000 Weight 72.5 kg Intake: IV 462.5 / 462.5 200 / 200 1000 / 1000 NS Inj 1,000 ML @ 120 mls/hr IV 0 / 0 .CONT .Q8H20M SJ Rx#:[id number] Zosyn 4.5 GM Premix 4.5 gm In 200 / 200 200 / 200 100 ml @ 200 mls/hr IV.SIG Q6H SJ Rx#:[id number] NS Inj 1,000 ML @ Wide Open IV. 1000 / 1000 SIG .Q0M SJ Rx#:[id number] Vancomycin Inj 1,250 MG In NS 262.5 / 262.5 Inj 250 ML @ 250 mls/hr IV.SIG Q24H SJ Rx#:[id number] <Meredith Chamberlain - 05/18/18 14:04> Narrative: Well-appearing male, sitting in bed, in no acute distress. <Meredith Chamberlain 05/18/18 14:04> - Routine HEENT Exam Head: Present: normocephalic, atraumatic <Meredith Chamberlain 05/18/18 14:04> - Routine Respiratory Exam Present: CTA bilaterally <Meredith Chamberlain 05/18/18 14:04> - Routine Cardiovascular Exam Present: RRR, murmur (Grade 3 out of 5 systolic murmur appreciated at the left sternal border. Unsure of any radiation as patient is not able to hold his breath.) <Meredith Chamberlain - 05/18/18 14:04> - Routine Abdominal Exam Present: soft, normoactive bowel sounds <Meredith Chamberlain 05/18/18 14:04> - Routine Skin Exam Present: scars (Multiple abrasions and well-healed scars on knees bilaterally.) <Meredith Chamberlain 05/18/18 14:04> - Urinary Catheter Management Indwelling Urethral Catheter Cath placed during this visit: no <Tsering Ray - 05/18/18 20:06> yes, but has since been removed by the nurse <Meredith Chamberlain 05/18/18 15:57> Reason for continuing: Decision to DC catheter <Meredith Chamberlain 05/18/18 14: 04> Insertion date: 05/16/18 <Meredith Chamberlain 05/18/18 14:04> Insertion time: 09:30 <Meredith Chamberlain 05/18/18 14:04> Removal date: 05/17/18 <Meredith Chamberlain - 05/18/18 14:04> Removal time: 12:32 <Meredith Chamberlain - 05/18/18 14:04> Assessment and Plan - Assessment (1) SIRS (systemic inflammatory response syndrome) Code(s): R65.10 - Systemic inflammatory response syndrome (SIRS) of non- infectious origin without acute organ dysfunction Status: Acute (2) Altered mental status Code(s): R41.82 - Altered mental status, unspecified Status: Acute (3) Elevated serum creatinine Code(s): R79.89 - Other specified abnormal findings of blood chemistry Status : Acute (4) Elevated troponin Code(s): R74.8 - Abnormal levels of other serum enzymes Status: Acute (5) T wave inversion in EKG Code(s): R94.31 - Abnormal electrocardiogram [ECG] [EKG] Status: Chronic (6) Nutrition, metabolism, and development symptoms Code(s): R63.8 - Other symptoms and signs concerning food and fluid intake Status: Acute (7) DVT prophylaxis Status: Acute <Tsering Ray - 05/18/18 20:06> (1) SIRS (systemic inflammatory response syndrome) Code(s): R65.10 - Systemic inflammatory response syndrome (SIRS) of non- infectious origin without acute organ dysfunction Status: Acute Plan: Meets 2 out of 4 criteria for sepsis: Tachypnea over 20 breaths per minute, WBC over 12,000 cells RR 22, WBC 19.5 Concerns for severe sepsis as follows Lactic acid 2.1 Decreased urine output over the last 24 hours Altered level of consciousness Chest x-ray negative Urine: Occasional bacteria. lumbar puncture: elevated proteins. 05/18: Patient currently on vancomycin and Zosyn. Patient remains afebrile. Had some urine output yesterday. We will continue to monitor Pending CBC labs today, phlebotomists stating that it is a challenge to draw blood. Source of initial infection still unknown: RPR negative, GUS negative, EEG normal. HIV pending, will consider hepatitis panel due to elevated ALT and hyperechoic mass seen on ultrasound. Follow-up lactic acid protocol Neurochecks every 4 hours (2) Altered mental status Code(s): R41.82 - Altered mental status, unspecified Status: Acute Plan: Patient met SIRS criteria on admission. Tachypnea over 20 breaths per minute, WBC: 19.5. No source of infection to date. Differential diagnosis: Viral encephalopathy vs drug intoxication vs liver toxicity vs psychosis Cardiac workup: Troponin were high upon admission: 0.11, now trending downwards at 0.09 today. EKG shows: Normal sinus rhythm, possible ventricular hypertrophy. TSH and free T4 were normal. No episodes of hypoglycemia. Negative influenza A'sB antigen CT head: negative Chest x-ray negative MRI brain negative. Ultrasound carotid: Unsure about this evaluation of the stenosis of the right internal carotid artery. Will clarify with Dr Ji today. CSF: High proteins: 72.5. Consider viral etiology. Unlikely due to nonbloody spinal tap alongside normal MRI (temporal lobes would be involved). CMP shows elevated AST: 40. Elevated Ammonia: 42. Concerns for liver toxicity/ low cirrhosis. 05/18 Liver ultrasound: Hyperechoic mass in the right lobe adjacent to gallbladder fossa region possibly cavernous hemangioma. No cholelithiasis. Small cystic structure on right kidney. Psych consult: Believes that this is more medically induced than psychiatric. Will continue to be consulted as patient improves in his mental status. EEG: Some medication effect/hallucinating. Normal. Consider Wernicke's encephalopathy: Patient does not have ophthalmoplegia. Unsure if patient is ataxic but is confused. Will check Thiamine/Folate/B12/ MMA level. Consider STD: HIV ordered still pending. RPR negative. Will order hepatitis panel. Concerns for drug use: UDS was negative on admission. OB drug screen not completed but ordered. Incident report made event number [id number]. Bedrest with fall precautions, soft restraints, bed near nursing station. Case management consulted with a request to contact patient's friend All Elizondo in an attempt to receive more information. (3) Elevated serum creatinine Code(s): R79.89 - Other specified abnormal findings of blood chemistry Status : Acute Plan: Elevated creatinine and possible oliguria as reported by ED physician Creatinine down from 2.16 to1.68 yesterday. Improving. CMP pending today. Likely prerenal failure due to dehydration, sepsis. IV fluids: Normal saline at 120ml/hr Continue to monitor I&Os. (4) Elevated troponin Code(s): R74.8 - Abnormal levels of other serum enzymes Status: Acute Plan: Elevated troponin of 0.11 on admission now decreased 0.09 yesterday. EKG shows normal sinus rhythm with possible ventricular hypertrophy. Continue to treat renal failure with adequate hydration. Continue treatment of sepsis as above. (5) T wave inversion in EKG Code(s): R94.31 - Abnormal electrocardiogram [ECG] [EKG] Status: Chronic Plan: ACS rule out was negative. No electrolyte abnormalities. (6) Nutrition, metabolism, and development symptoms Code(s): R63.8 - Other symptoms and signs concerning food and fluid intake Status: Acute Plan: Fluids: Normal saline at maintenance Electrolytes: Follow-up BMP and replete as needed Nutrition: Swallow eval: Moderate oral phase dysphasia. Recommends pured solids and thin liquids. Medications should be crushed in pure. Full feeding assistance needed. 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 <Meredith Chamberlain - 05/18/18 14:04> - Attending Attestation Patient seen and examined this morning, discussed with resident team. I agree with assessment and management as documented and discussed with me. Pt's mental status is improving today. Work up is nonrevealing so far regarding AMS - mild hepatic encephalopathy, treated with lactulose. Continue current treatment, while work up is pending. <Tsering Ray - 05/18/18 20:06>
[2018-05-18 14:41] LABS: Alanine Aminotransferase 33 U/L (12-78); Albumin 3.6 g/dL (3.4-5.0); Alkaline Phosphatase 64 U/L (45-117); Anion Gap 10 meq/L (5-15); Aspartate Aminotransferase 29 U/L (15-37); Blood Urea Nitrogen 27 mg/dL (7-18); Chloride 114 meq/L (98-107); Glomerular Filtration Rate 55 mL/min (>89); Glucose,Random 106 mg/dL (74-106); Potassium 3.3 meq/L (3.5-5.1); Sodium 148 meq/L (136-145); Total Protein 7.1 g/dL (6.4-8.2)
[2018-05-18 15:19] LABS: Hepatitits B Surface Antigen Nonreactive (Nonreactive)
[2018-05-18 15:45] LABS: Hepatitis A IgM Antibody Nonreactive (Nonreactive)
[2018-05-19] MEDS ORDERED: LORazepam 0.5 MG Tablet PO ONE (01:38)
[2018-05-19 02:25] LABS: Amphetamine Urine With Conf Neg (Neg); Benzodiazepine Urine With Conf Neg (Neg)
[2018-05-19] MEDS: Piperacil/Tazo 4.5 GM Premix 4.5 GM/100 ML BAG IV.SIG SCH ×2 (03:22→08:09)
--- NOTE | 2018-05-19 06:31 | P.PNADD ---
Addendum to Inpatient Note Additional information: Repeated calls overnight for manual BP measuring 226/98, 212/90. Nursing reports that the patient was asymptomatic. Ordered extra dosing of clonidine 0.1mg and single dose Ativan 0.5mg. Patient's BP remained in 200's systolic and 90's diastolic. Went to evaluated patient around 0400. Patient asymptomatic, denies headache, chest pain, difficulty breathing, vision changes. Patient reports that he was on metoprolol and lisinopril at home. Restarted Lisinopril 40mg daily and started new RX hydralazine 10mgTID.
[2018-05-19] MEDS: Folic Acid 1 MG Tablet PO SCH (09:20)
[2018-05-19] MEDS: hydrALAZINE 10 MG Tablet PO SCH ×3 (09:20→18:52)
[2018-05-19] MEDS: Lisinopril 20 MG Tablet PO SCH (09:20)
--- NOTE | 2018-05-19 09:43 | P.PNFP ---
Addendum entered and electronically signed by Meredith Chamberlain MD, R1 05/19/18 14:17: Considering patient's consistent hypertensive episodes despite 2 antihypertensive medications. Will add amlodipine 10 mg p.o. daily. Continue to monitor vital signs every 4. Sepsis has seemed to resolve. White count is trending downwards today from 15.6 to 13.9. Will discontinue vancomycin today. Soft restraints have been removed. PT has been ordered for patient to move around. Original Note: Subjective Interval history: Patient was seen and examined this morning. Patient had multiple events of hypertension overnight. He was treated with clonidine as needed. Still remained hypertensive. Was given lisinopril and hydralazine but asymptomatic overnight. Patient is a little agitated due to soft restraints. He is alert and oriented to person, and date and time. He believes that he is in [facility]. His altered mental status seems to be improving today and he is able to answer questions. Speech is more coherent, thought process is coherent. He is able to provide us with some past medical history, they are as follows: Lumbar fusion, high blood pressure, neuropathy, chronic anxiety and marijuana use. He confirms that he takes Xanax 1 mg 3 times daily for his chronic anxiety. Metoprolol and lisinopril for his high blood pressure. He is unsure of what occurred before he came into the hospital. Denies any other illicit drug use or any diagnosis of hepatitis C. When inquired about what source of infection he stated that it could possibly be his abrasion on his right knee. Case management was able to speak to his mother yesterday. See case management note for further details. His primary care physician is Sanjay Angel in [facility]. He is urinating well. He denies any chest pain, blurry vision, headache, shortness of breath, abdominal pain, problems with urination. All questions and concerns were answered at bedside. <Meredith Chamberlain - 05/19/18 10:37> Results - Labs Result diagrams: 05/19/18 13:05 05/19/18 13:05 <Tsering Ray - 05/19/18 16:51> Abnormal lab results 05/19/18 05/19/18 05/19/18 Range/Units 13:05 13:05 13:05 WBC 13.9 H (4.0-11.0) th/mm3 RBC 3.77 L (4.50-5.90) mil/mm3 Hct 37.2 L (39.0-51.0) % MCH 34.8 H (27.0-34.0) pg Neut % (Auto) 73.2 H (16.0-70.0) % Neut # (Auto) 10.2 H (1.8-7.7) th/mm3 Sodium 147 H (136-145) meq/L Potassium 3.2 L (3.5-5.1) meq/L Chloride 113 H (98-107) meq/L BUN 20 H (7-18) mg/dL Creatinine 1.31 H (0.60-1.30) mg/dL Estimated GFR 55 L (>89) mL/min Random Glucose 127 H (74-106) mg/dL Calcium 8.3 L (8.5-10.1) mg/dL Ammonia 40 H (11-32) mcmol/L Short CBC 05/19/18 Range/Units 13:05 WBC 13.9 H (4.0-11.0) th/mm3 Hgb 13.1 (13.0-17.0) gm/dL Hct 37.2 L (39.0-51.0) % Plt Count 213 (150-450) th/mm3 BMP 05/19/18 13:05 Sodium 147 H Potassium 3.2 L Chloride 113 H Carbon Dioxide 25.8 BUN 20 H Creatinine 1.31 H Calcium 8.3 L <Tsering Ray - 05/19/18 16:51> Abnormal lab results 05/18/18 05/18/18 05/18/18 Range/Units 13:45 13:45 13:45 WBC 15.6 H (4.0-11.0) th/mm3 RBC 4.18 L (4.50-5.90) mil/mm3 Neut % (Auto) 76.0 H (16.0-70.0) % Neut # (Auto) 11.9 H (1.8-7.7) th/mm3 Sodium 148 H (136-145) meq/L Potassium 3.3 L (3.5-5.1) meq/L Chloride 114 H (98-107) meq/L BUN 27 H (7-18) mg/dL Creatinine 1.32 H (0.60-1.30) mg/dL Estimated GFR 55 L (>89) mL/min Ammonia 59 H (11-32) mcmol/L Hep C IgG Ab (Nonreactive) 05/18/18 Range/Units 13:45 WBC (4.0-11.0) th/mm3 RBC (4.50-5.90) mil/mm3 Neut % (Auto) (16.0-70.0) % Neut # (Auto) (1.8-7.7) th/mm3 Sodium (136-145) meq/L Potassium (3.5-5.1) meq/L Chloride (98-107) meq/L BUN (7-18) mg/dL Creatinine (0.60-1.30) mg/dL Estimated GFR (>89) mL/min Ammonia (11-32) mcmol/L Hep C IgG Ab Reactive H (Nonreactive) Short CBC 05/18/18 Range/Units 13:45 WBC 15.6 H (4.0-11.0) th/mm3 Hgb 14.2 (13.0-17.0) gm/dL Hct 41.4 (39.0-51.0) % Plt Count 284 (150-450) th/mm3 BMP 05/18/18 13:45 Sodium 148 H Potassium 3.3 L Chloride 114 H Carbon Dioxide 24.0 BUN 27 H Creatinine 1.32 H Calcium 9.0 Liver Function 05/18/18 Range/Units 13:45 Total Bilirubin 0.8 (0.2-1.0) mg/dL AST 29 (15-37) U/L ALT 33 (12-78) U/L Alkaline Phosphatase 64 (45-117) U/L Albumin 3.6 (3.4-5.0) g/dL <Meredith Chamberlain - 05/19/18 09:43> Physical Exam Vital signs: Vital Signs 05/18/18 20:00 05/18/18 22:32 05/19/18 00:00 Temperature 97.3 F L 97.9 F Pulse Rate 48 L 49 L Respiratory Rate 18 18 Blood Pressure 226/98 H 200/94 H 212/90 H Pulse Oximetry 100 100 05/19/18 01:03 05/19/18 03:18 05/19/18 03:55 Temperature 97.3 F L Pulse Rate 44 L Respiratory Rate 20 Blood Pressure 200/92 H 210/96 H 198/94 H Pulse Oximetry 99 05/19/18 04:00 05/19/18 08:00 05/19/18 12:00 Temperature 97.8 F 98.3 F Pulse Rate 42 L 39 L 44 L Respiratory Rate 16 16 Blood Pressure 221/100 H 187/93 H Pulse Oximetry 99 100 05/19/18 16:00 Temperature Pulse Rate 53 L Respiratory Rate Blood Pressure Pulse Oximetry Intake & Output 05/18/18 05/19/18 05/19/18 18:59 06:59 18:59 Intake Total 1460 / 1460 1460 / 1460 Balance 1460 / 1460 1460 / 1460 Weight 74.8 kg Intake: IV 1100 / 1100 1100 / 1100 NS Inj 1,000 ML @ 120 mls/hr IV 1000 / 1000 .CONT .Q8H20M [facility] Rx#:[id number] Zosyn 4.5 GM Premix 4.5 gm In 100 / 100 100 / 100 100 ml @ 200 mls/hr IV.SIG Q6H [facility] Rx#:[id number] NS Inj 1,000 ML @ Wide Open IV. 1000 / 1000 SIG .Q0M [facility] Rx#:[id number] Oral 360 / 360 360 / 360 Other: # Voids 6 # Incontinent Voids 3 Date of Last Bowel Movement 05/18/18 05/19/18 05/19/18 # Bowel Movements 3 # Incontinent Bowel Movements 1 <VedeepikaTsering - 05/19/18 16:51> Vital Signs 05/18/18 12:00 05/18/18 16:00 05/18/18 20:00 Temperature 97.4 F L 98.0 F 97.3 F L Pulse Rate 46 L 53 L 48 L Respiratory Rate 17 18 18 Blood Pressure 185/113 H 176/83 H 226/98 H Pulse Oximetry 100 100 100 05/18/18 22:32 05/19/18 00:00 05/19/18 01:03 Temperature 97.9 F Pulse Rate 49 L Respiratory Rate 18 Blood Pressure 200/94 H 212/90 H 200/92 H Pulse Oximetry 100 05/19/18 03:18 05/19/18 03:55 05/19/18 04:00 Temperature 97.3 F L Pulse Rate 44 L 42 L Respiratory Rate 20 Blood Pressure 210/96 H 198/94 H Pulse Oximetry 99 05/19/18 08:00 Temperature 97.8 F Pulse Rate 40 L Respiratory Rate 16 Blood Pressure 221/100 H Pulse Oximetry 99 Intake & Output 05/18/18 05/19/18 05/19/18 18:59 06:59 18:59 Intake Total 1460 / 1460 1460 / 1460 Balance 1460 / 1460 1460 / 1460 Weight 74.8 kg Intake: IV 1100 / 1100 1100 / 1100 NS Inj 1,000 ML @ 120 mls/hr IV 1000 / 1000 .CONT .Q8H20M [facility] Rx#:[id number] Zosyn 4.5 GM Premix 4.5 gm In 100 / 100 100 / 100 100 ml @ 200 mls/hr IV.SIG Q6H [facility] Rx#:[id number] NS Inj 1,000 ML @ Wide Open IV. 1000 / 1000 SIG .Q0M [facility] Rx#:[id number] Oral 360 / 360 360 / 360 Other: # Voids 6 # Incontinent Voids 3 Date of Last Bowel Movement 05/18/18 05/19/18 05/19/18 # Bowel Movements 3 # Incontinent Bowel Movements 1 <Meredith Chamberlain - 05/19/18 10:00> Narrative: Well-appearing male, sitting comfortably in bed, in no acute distress. <Meredith Chamberlain - 05/19/18 10:00> - Routine HEENT Exam Head: Present: normocephalic, atraumatic <Meredith Chamberlain - 05/19/18 10:00> - Routine Respiratory Exam Present: CTA bilaterally. Absent: stridor, wheezes, crackles <Meredith Chamberlain - 05/19/18 10:00> - Routine Cardiovascular Exam Present: RRR <Meredith Chamberlain - 05/19/18 10:00> Comments: Grade 3 out of 5 systolic murmur appreciated at the left sternal border. <Meredith Chamberlain - 05/19/18 10:00> - Routine Abdominal Exam Present: soft, normoactive bowel sounds. Absent: tenderness <Meredith Chamberlain - 05/19/18 10:00> - Routine Skin Exam Comments: Multiple abrasions and well-healed scars on the spinal <Meredith Chamberlain 05/19/18 10:00> - Routine Neurological Exam Present: alert <Meredith Chamberlain 05/19/18 10:00> Oriented to person, year and time. <Meredith Chamberlain 05/19/18 10:00> - Urinary Catheter Management Indwelling Urethral Catheter Cath placed during this visit: no <CoryTsering - 05/19/18 16:51> yes, but has since been removed by the nurse <Meredith Chamberlain 05/19/18 10:40> Reason for continuing: Decision to DC catheter <Meredith Chamberlain 05/19/18 09: 43> Insertion date: 05/16/18 <Meredith Chamberlain 05/19/18 09:43> Insertion time: 09:30 <Meredith Chamberlain 05/19/18 09:43> Removal date: 05/17/18 <Meredith Chamberlain 05/19/18 09:43> Removal time: 12:32 <Meredith Chamberlain 05/19/18 09:43> Assessment and Plan - Assessment (1) SIRS (systemic inflammatory response syndrome) Code(s): R65.10 - Systemic inflammatory response syndrome (SIRS) of non- infectious origin without acute organ dysfunction Status: Acute (2) Hypertension Code(s): I10 - Essential (primary) hypertension Status: Acute (3) Altered mental status Code(s): R41.82 - Altered mental status, unspecified Status: Acute (4) Elevated serum creatinine Code(s): R79.89 - Other specified abnormal findings of blood chemistry Status : Resolved (5) Elevated troponin Code(s): R74.8 - Abnormal levels of other serum enzymes Status: Resolved (6) T wave inversion in EKG Code(s): R94.31 - Abnormal electrocardiogram [ECG] [EKG] Status: Resolved (7) Nutrition, metabolism, and development symptoms Code(s): R63.8 - Other symptoms and signs concerning food and fluid intake Status: Acute (8) DVT prophylaxis Status: Acute <CoryTsering - 05/19/18 16:51> (1) SIRS (systemic inflammatory response syndrome) Code(s): R65.10 - Systemic inflammatory response syndrome (SIRS) of non- infectious origin without acute organ dysfunction Status: Acute Plan: Meets 2 out of 4 criteria for sepsis: Tachypnea over 20 breaths per minute, WBC over 12,000 cells RR 22, WBC 19.5 Concerns for severe sepsis as follows Lactic acid 2.1 Decreased urine output over the last 24 hours Altered level of consciousness Chest x-ray negative Urine: Occasional bacteria. lumbar puncture: elevated proteins. 05/19: Patient currently on vancomycin and Zosyn. Patient remains afebrile. Patient states that he is having good urine output. White count from yesterday dropped from 15.9 to 15.6. Patient remains afebrile. Pending CBC labs today, phlebotomists stating that it is a challenge to draw blood. Source of initial infection still unknown: RPR negative, GUS negative, EEG normal. HIV pending. Hepatitis C positive. Will consider AFP and abdominal ultrasound for further evaluation of mass seen in liver ultrasound. Follow-up lactic acid protocol Neurochecks every 4 hours (2) Hypertension Code(s): I10 - Essential (primary) hypertension Status: Acute Plan: Patient was hypertensive overnight systolic blood pressures in the 200s. Patient has been asymptomatic. Patient states that he has a history of hypertension and is on lisinopril and metoprolol at home. Start lisinopril 40 mg p.o. daily and hydralazine 10 mg 3 times daily. Monitor vitals every q. 4. (3) Altered mental status Code(s): R41.82 - Altered mental status, unspecified Status: Acute Plan: Patient met SIRS criteria on admission. Tachypnea over 20 breaths per minute, WBC: 19.5. No source of infection to date. Differential diagnosis: Viral encephalopathy vs drug intoxication vs liver toxicity vs psychosis Cardiac workup: Troponin were high upon admission: 0.11, now trending downwards at 0.09 today. EKG shows: Normal sinus rhythm, possible ventricular hypertrophy. TSH and free T4 were normal. No episodes of hypoglycemia. Negative influenza A'sB antigen CT head: negative Chest x-ray negative MRI brain negative. Ultrasound carotid: Unsure about this evaluation of the stenosis of the right internal carotid artery. Will clarify with Dr Ji today. CSF: High proteins: 72.5. Consider viral etiology. Unlikely due to nonbloody spinal tap alongside normal MRI (temporal lobes would be involved). CSF Gram stain: no growth CMP shows elevated AST: 40. Elevated Ammonia: 42. Concerns for liver toxicity/ low cirrhosis. Liver ultrasound: Hyperechoic mass in the right lobe adjacent to gallbladder fossa region possibly cavernous hemangioma. No cholelithiasis. Small cystic structure on right kidney. Psych consult: Believes that this is more medically induced than psychiatric. Will continue to be consulted as patient improves in his mental status. EEG: Some medication effect/hallucinating. Normal. 05/19: Patient's mental status has been improving. Could be due to sepsis resolving. Hep C IgG antibody reactive. Hepatitis C positive. Liver mass seen on ultrasound concerning for hepatocellular carcinoma. Consider AFP and abdominal CT. Consider Wernicke's encephalopathy: Patient does not have ophthalmoplegia. Unsure if patient is ataxic but is confused. Thiamine/Folate/MMA still pending. B12 normal. Consider STD: HIV ordered, still pending. RPR negative. Concerns for drug use: UDS was negative on admission. OB drug screen pending. Bedrest with fall precautions. Patient is less combative today. Will remove soft restraints. Case management contacted mother to receive more information. Please see case management note for more detail. (4) Elevated serum creatinine Code(s): R79.89 - Other specified abnormal findings of blood chemistry Status : Resolved Plan: Elevated creatinine and possible oliguria as reported by ED physician Creatinine down from 1.68 to 1.32 yesterday. Improving. Patient states that he is urinating well. CMP pending today. Likely prerenal failure due to dehydration, sepsis. IV fluids: Normal saline at 120ml/hr Continue to monitor I&Os. (5) Elevated troponin Code(s): R74.8 - Abnormal levels of other serum enzymes Status: Resolved Plan: Elevated troponin of 0.11 on admission now decreased 0.09 yesterday. EKG shows normal sinus rhythm with possible ventricular hypertrophy. Continue to treat renal failure with adequate hydration. Continue treatment of sepsis as above. (6) T wave inversion in EKG Code(s): R94.31 - Abnormal electrocardiogram [ECG] [EKG] Status: Resolved Plan: ACS rule out was negative. No electrolyte abnormalities. (7) Nutrition, metabolism, and development symptoms Code(s): R63.8 - Other symptoms and signs concerning food and fluid intake Status: Acute Plan: Fluids: Normal saline at maintenance Electrolytes: Follow-up BMP and replete as needed Nutrition: Swallow eval: Moderate oral phase dysphasia. Recommends pured solids and thin liquids. Medications should be crushed in pure. Full feeding assistance needed. Normal saline at maintenance (8) DVT prophylaxis Status: Acute Plan: GI prophylaxis: Not indicated DVT prophylaxis: SCDs <Meredith Chamberlain - 05/19/18 10:38> - Assessment and Plan 62-year-old male, unknown prior medical history, presenting to ED [place] act by police force for altered mental status, also meets SIRS criteria. <Meredith Chamberlain - 05/19/18 09:43> - Attending Attestation Patient seen and examined this morning, discussed with resident team. I agree with assessment and management as documented and discussed with me. Mental status is improving. Ammonia level improving. Continue current care; discontinue antibiotics as cultures negative x 72 hours. Add amlodipine for elevated blood pressures. <Tsering Ray - 05/19/18 16:51>
[2018-05-19] MEDS ORDERED: Pharmacy Ordered Lab Info OTHER ONE (10:45)
[2018-05-19] MEDS: amLODIPine 10 MG Tablet PO SCH (13:00)
[2018-05-19 13:28] LABS: Baso # (Auto) 0.1 th/mm3 (0.0-0.2); Baso % (Auto) 0.5 % (0.0-2.0); Eos # (Auto) 0.4 th/mm3 (0.0-0.4); Eos % (Auto) 2.6 % (0.0-4.0); Hematocrit 37.2 % (39.0-51.0); Lymph # (Auto) 2.5 th/mm3 (1.0-4.8); Lymph % (Auto) 17.9 % (9.0-44.0); Mean Corpuscular HGB Conc 35.2 % (32.0-36.0); Mean Corpuscular Hemoglobin 34.8 pg (27.0-34.0); Mean Corpuscular Volume 98.8 fL (80.0-100.0); Mean Platelet Volume 9.6 fL (7.0-11.0); Mono # (Auto) 0.8 th/mm3 (0.0-0.9); Mono % (Auto) 5.8 % (0.0-8.0); Neut # (Auto) 10.2 th/mm3 (1.8-7.7); Neut % (Auto) 73.2 % (16.0-70.0); Platelet Count 213 th/mm3 (150-450); Red Blood Count 3.77 mil/mm3 (4.50-5.90); Red Cell Distribution Width 12.4 % (11.6-17.2); White Blood Count 13.9 th/mm3 (4.0-11.0)
[2018-05-19 13:30] LABS: Hemoglobin 13.1 gm/dL (13.0-17.0)
[2018-05-19] MEDS: Vancomycin Inj 1,250 MG in Sodium Chlor 0.9% Inj 250 ML IV.SIG SCH (14:06)
[2018-05-19 14:11] LABS: Calcium 8.3 mg/dL (8.5-10.1); Carbon Dioxide 25.8 meq/L (21.0-32.0); Potassium 3.2 meq/L (3.5-5.1)
--- NOTE | 2018-05-19 14:55 | P.PNPSY ---
Subjective Remarks: Patient seen and examined in psychiatric follow up. Chart reviewed. Collateral obtained by CM from mother reviewed. On my examination today, patient presents as much more lucid. He is more oriented today. He is initially a little dysphoric, reportedly because he is upset at being held in the hospital because his BP is elevated, but his affect brightens as we converse. His recollection of the circumstances of his presentation here are minimal: he remembers packing up his things in anticipation of travelling back to [place] and then remembers awakening here. He suspects that sleep deprivation may have been to blame and notes that he had a similar episode several years back, also brought on by disrupted sleep, around the time of his divorce. He reports a history of anxiety but denies any history of psychiatric admissions or suicide attempts. He denies any substance use. Presently, I can elicit no depressive or hypomanic/manic symptoms. He denies any suicidal or homicidal ideation, intent or plan. He denies any audiovisual hallucinations. I can elicit no delusional material. The remainder of the psychiatric ROS is negative. No acute physical complaints. Vital Signs Temp Pulse Resp BP Pulse Ox 05/19/18 12:00 98.3 F 52 L 16 187/93 H 100 05/19/18 08:00 97.8 F 40 L 16 221/100 H 99 05/19/18 04:00 42 L 05/19/18 03:55 97.3 F L 44 L 20 198/94 H 99 05/19/18 03:18 210/96 H 05/19/18 01:03 200/92 H 05/19/18 00:00 97.9 F 49 L 18 212/90 H 100 05/18/18 22:32 200/94 H 05/18/18 20:00 97.3 F L 48 L 18 226/98 H 100 05/18/18 16:00 98.0 F 53 L 18 176/83 H 100 Intake and Output 05/18/18 05/19/18 05/19/18 22:59 06:59 14:59 Intake Total 460 / 460 1360 / 1360 Balance 460 / 460 1360 / 1360 Intake: IV 100 / 100 1000 / 1000 NS Inj 1,000 ML @ 120 mls/hr IV 1000 / 1000 .CONT .Q8H20M [facility] Rx#:[id number] Zosyn 4.5 GM Premix 4.5 gm In 100 / 100 100 ml @ 200 mls/hr IV.SIG Q6H [facility] Rx#:[id number] Oral 360 / 360 360 / 360 Other: # Voids 6 # Incontinent Voids 3 Date of Last Bowel Movement 05/19/18 05/19/18 # Bowel Movements 3 # Incontinent Bowel Movements 1 Weight 74.8 kg Laboratory Results - last 24 hr 05/16/18 05/16/18 05/18/18 09:20 09:20 13:45 WBC RBC Hgb Hct MCV MCH MCHC RDW Plt Count MPV Neut % (Auto) Lymph % (Auto) [place] % (Auto) Eos % (Auto) Baso % (Auto) Neut # (Auto) Lymph # (Auto) [place] # (Auto) Eos # (Auto) Baso # (Auto) WBC Differential Differential Comment Sodium Potassium Chloride Carbon Dioxide Anion Gap BUN Creatinine Estimated GFR Random Glucose Calcium Ammonia Vitamin B12 Urine Opiates Screen Cancelled Neg Ur Barbiturates Screen Cancelled Neg Ur Amphetamine Screen Neg Ur Amphetamines Screen Cancelled U Benzodiazepines Scrn Cancelled Neg Urine Cocaine Screen Cancelled Neg U Cannabinoids Screen Cancelled Neg Hepatitis A IgM Ab Nonreactive Hep Bs Antigen Nonreactive Hep B Core IgM Ab Nonreactive Hep C IgG Ab Reactive H HIV 1&2 Ab/P24 Ag 4thGn Nonreactive 05/18/18 05/19/18 05/19/18 13:45 13:05 13:05 WBC 13.9 H RBC 3.77 L Hgb 13.1 Hct 37.2 L MCV 98.8 MCH 34.8 H MCHC 35.2 RDW 12.4 Plt Count 213 MPV 9.6 Neut % (Auto) 73.2 H Lymph % (Auto) 17.9 [place] % (Auto) 5.8 Eos % (Auto) 2.6 Baso % (Auto) 0.5 Neut # (Auto) 10.2 H Lymph # (Auto) 2.5 [place] # (Auto) 0.8 Eos # (Auto) 0.4 Baso # (Auto) 0.1 WBC Differential . Differential Comment Auto diff final Sodium 147 H Potassium 3.2 L Chloride 113 H Carbon Dioxide 25.8 Anion Gap 8 BUN 20 H Creatinine 1.31 H Estimated GFR 55 L Random Glucose 127 H Calcium 8.3 L Ammonia Vitamin B12 734 Urine Opiates Screen Ur Barbiturates Screen Ur Amphetamine Screen Ur Amphetamines Screen U Benzodiazepines Scrn Urine Cocaine Screen U Cannabinoids Screen Hepatitis A IgM Ab Hep Bs Antigen Hep B Core IgM Ab Hep C IgG Ab HIV 1&2 Ab/P24 Ag 4thGn 05/19/18 13:05 WBC RBC Hgb Hct MCV MCH MCHC RDW Plt Count MPV Neut % (Auto) Lymph % (Auto) [place] % (Auto) Eos % (Auto) Baso % (Auto) Neut # (Auto) Lymph # (Auto) [place] # (Auto) Eos # (Auto) Baso # (Auto) WBC Differential Differential Comment Sodium Potassium Chloride Carbon Dioxide Anion Gap BUN Creatinine Estimated GFR Random Glucose Calcium Ammonia 40 H Vitamin B12 Urine Opiates Screen Ur Barbiturates Screen Ur Amphetamine Screen Ur Amphetamines Screen U Benzodiazepines Scrn Urine Cocaine Screen U Cannabinoids Screen Hepatitis A IgM Ab Hep Bs Antigen Hep B Core IgM Ab Hep C IgG Ab HIV 1&2 Ab/P24 Ag 4thGn Labs reviewed. Extended urine toxicology, thiamine and RBC folate are still pending. EEG results reviewed. Review of Systems All other systems reviewed negative except as stated in HPI Mental Status Examination Appearance: Other (Fair) Consciousness: Alert Orientation: Person, Place ([place]), Date/Time (April 2018) Motor Activity: Other (No motor abnormalities noted) Speech: Unremarkable Language: Adequate Fund of Knowledge: Adequate Attention and Concentration: Adequate Memory: Unremarkable (Except for lacuna associated with presentation here) Mood: Appropriate Affect: Appropriate Thought Process & Associations: Intact Thought Content: Appropriate Hallucination Type: None Delusion Type: None Suicidal Ideation: No Suicidal Plan: No Suicidal Intention: No Homicidal Ideation: No Homicidal Plan: No Homicidal Intention: No Mental Status Exam Remarks: Insight and judgment are perhaps fair Assessment and Plan - Assessment (1) Delirium due to another medical condition Code(s): F05 - Delirium due to known physiological condition Status: Acute (2) SIRS (systemic inflammatory response syndrome) Code(s): R65.10 - Systemic inflammatory response syndrome (SIRS) of non- infectious origin without acute organ dysfunction Status: Acute - Plan Plan: Mental status is much improved today. On my examination today, the patient denies suicidal or homicidal ideation. There is no evidence of unstable mental illness as defined under the [place] act. There is no evidence of impairment in self-care stemming from a mental illness as defined under the [place] act. The patient therefore does not meet the [place] act criteria, and I have lifted the [place] act. I have recommended that the patient follow up with his primary care doctor in [place] and seek a referral for psychiatric follow up there, chiefly for his sleep issues as patient reports his anxiety is well controlled. I have counseled the patient to come to the psychiatric emergency room for any concerning symptoms as part of a general safety plan. I have put out a call to Dr. Chamberlain to discuss the case. Thank you for this consultation. I will plan to follow up as needed. Justification for Continued Inpatient Stay: Per primary team. Discharge Planning: [place] Act lifted. Patient does not require inpatient psychiatric admission at this time.
[2018-05-19] MEDS ORDERED: Diatrizoate Meglum/Diatrizoate Sod Liq 9 ML UDC PO ONE (18:15)
[2018-05-19] MEDS: Sod Chloride 0.9% Inj 1,000 ML IV.CONT SCH (18:53)
[2018-05-20] MEDS: Folic Acid 1 MG Tablet PO SCH (09:02)
[2018-05-20] MEDS: amLODIPine 10 MG Tablet PO SCH (09:02)
[2018-05-20] MEDS: hydrALAZINE 10 MG Tablet PO SCH (09:03)
[2018-05-20] MEDS: Lisinopril 20 MG Tablet PO SCH (09:03)
[2018-05-20 09:09] VITALS: BP 183/87; RESP 17; TEMP 98.3; O2SAT 99
--- NOTE | 2018-05-20 10:14 | P.PNFP ---
Subjective Interval history: Patient was seen and examined at bedside this morning. He was agitated, slightly aggressive, stating that he wants to go home. He does not understand why he is in the hospital, and would like to leave today. He states that he was at a golf tournament on Thursday in [facility] before his admission. Upon explanation about his medical care, patient became angry. He is not interested in understanding why he was admitted to the hospital. An abdominal CT was ordered to further investigate his liver mass, but patient refuses to get imaging done. He requests for his IV to be removed and for him to be discharged today. He denies any chest pain, shortness of breath, abdominal pain, problems with urination or defecation. He is oriented to person place and time this morning. All questions comments and concerns were answered at bedside. Results - Labs Result diagrams: 05/19/18 13:05 05/19/18 13:05 Abnormal lab results 05/18/18 05/19/18 05/19/18 Range/Units 13:45 13:05 13:05 WBC 13.9 H (4.0-11.0) th/mm3 RBC 3.77 L (4.50-5.90) mil/mm3 Hct 37.2 L (39.0-51.0) % MCH 34.8 H (27.0-34.0) pg Neut % (Auto) 73.2 H (16.0-70.0) % Neut # (Auto) 10.2 H (1.8-7.7) th/mm3 Sodium (136-145) meq/L Potassium (3.5-5.1) meq/L Chloride (98-107) meq/L BUN (7-18) mg/dL Creatinine (0.60-1.30) mg/dL Estimated GFR (>89) mL/min Random Glucose (74-106) mg/dL Calcium (8.5-10.1) mg/dL Ammonia (11-32) mcmol/L Thiamine 199 H (70-180) nmol/L Vancomycin Trough 15.5 H (5.0-10.0) mcg/mL 05/19/18 05/19/18 Range/Units 13:05 13:05 WBC (4.0-11.0) th/mm3 RBC (4.50-5.90) mil/mm3 Hct (39.0-51.0) % MCH (27.0-34.0) pg Neut % (Auto) (16.0-70.0) % Neut # (Auto) (1.8-7.7) th/mm3 Sodium 147 H (136-145) meq/L Potassium 3.2 L (3.5-5.1) meq/L Chloride 113 H (98-107) meq/L BUN 20 H (7-18) mg/dL Creatinine 1.31 H (0.60-1.30) mg/dL Estimated GFR 55 L (>89) mL/min Random Glucose 127 H (74-106) mg/dL Calcium 8.3 L (8.5-10.1) mg/dL Ammonia 40 H (11-32) mcmol/L Thiamine (70-180) nmol/L Vancomycin Trough (5.0-10.0) mcg/mL Short CBC 05/19/18 Range/Units 13:05 WBC 13.9 H (4.0-11.0) th/mm3 Hgb 13.1 (13.0-17.0) gm/dL Hct 37.2 L (39.0-51.0) % Plt Count 213 (150-450) th/mm3 BMP 05/19/18 13:05 Sodium 147 H Potassium 3.2 L Chloride 113 H Carbon Dioxide 25.8 BUN 20 H Creatinine 1.31 H Calcium 8.3 L Physical Exam Vital signs: Vital Signs 05/19/18 12:00 05/19/18 16:00 05/19/18 20:00 Temperature 98.3 F 98.2 F 97.1 F L Pulse Rate 44 L 50 L 51 L Respiratory Rate 16 16 18 Blood Pressure 187/93 H 169/76 H 142/69 H Pulse Oximetry 100 100 100 05/19/18 23:19 05/20/18 03:20 05/20/18 04:00 Temperature 98.5 F 98.4 F Pulse Rate 55 L 18 L 46 L Respiratory Rate 20 20 Blood Pressure 168/76 H 177/84 H Pulse Oximetry 99 96 05/20/18 08:00 Temperature 98.3 F Pulse Rate 49 L Respiratory Rate 17 Blood Pressure 183/87 H Pulse Oximetry 99 Intake & Output 05/19/18 05/20/18 05/20/18 18:59 06:59 18:59 Intake Total 1000 / 1000 300 / 300 Balance 1000 / 1000 300 / 300 Weight 76.2 kg Intake: IV 1000 / 1000 NS Inj 1,000 ML @ 120 mls/hr IV 1000 / 1000 .CONT .Q8H20M [facility] Rx#:[id number] Oral 300 / 300 Other: # Voids 4 3 Date of Last Bowel Movement 05/19/18 05/19/18 # Bowel Movements 2 1 - Constitutional no acute distress - Routine HEENT Exam Head: Present: normocephalic, atraumatic - Routine Respiratory Exam Present: CTA bilaterally - Routine Cardiovascular Exam Present: RRR, S1, S2 - Routine Abdominal Exam Present: soft, normoactive bowel sounds - Routine Skin Exam Comments: Multiple abrasion and well healed scars on knee knees bilaterally - Urinary Catheter Management Indwelling Urethral Catheter Cath placed during this visit: yes, but has since been removed by the nurse Reason for continuing: Decision to DC catheter Insertion date: 05/16/18 Insertion time: 09:30 Removal date: 05/17/18 Removal time: 12:32 Assessment and Plan - Assessment (1) SIRS (systemic inflammatory response syndrome) Code(s): R65.10 - Systemic inflammatory response syndrome (SIRS) of non- infectious origin without acute organ dysfunction Status: Acute Plan: Meets 2 out of 4 criteria for sepsis: Tachypnea over 20 breaths per minute, WBC over 12,000 cells RR 22, WBC 19.5 Concerns for severe sepsis as follows Lactic acid 2.1 Decreased urine output over the last 24 hours Altered level of consciousness Chest x-ray negative Urine: Occasional bacteria. lumbar puncture: elevated proteins. 05/19: White count trending downwards, vancomycin and Zosyn DC'd yesterday. Patient removed IV overnight, CBC pending. Patient states that he is having good urine output. Source of initial infection still unknown: RPR negative, GUS negative, EEG normal. HIV pending. Hepatitis C positive. Patient aware. Will need to do confirmatory evaluation/ studies. Patient states that he will follow-up with his primary care physician for this workup. (2) Hypertension Code(s): I10 - Essential (primary) hypertension Status: Acute Plan: Patient had episodes of hypertension yesterday. Blood pressures trending downwards but still slightly elevated. Patient has been asymptomatic. Currently on 3 antihypertensive medications with minimal control. Now considered resistant hypertension. Increase hydralazine from 10 mg to 25 mg 3 times daily. Amlodipine 10 mg p.o. daily Lisinopril 40 mg p.o. daily Monitor vitals every q. 4. (3) Altered mental status Code(s): R41.82 - Altered mental status, unspecified Status: Acute Plan: Patient met SIRS criteria on admission. Tachypnea over 20 breaths per minute, WBC: 19.5. No source of infection to date. Differential diagnosis: Viral encephalopathy vs drug intoxication vs liver toxicity vs psychosis Cardiac workup: Troponin were high upon admission: 0.11, now trending downwards at 0.09 today. EKG shows: Normal sinus rhythm, possible ventricular hypertrophy. TSH and free T4 were normal. No episodes of hypoglycemia. Negative influenza A'sB antigen CT head: negative Chest x-ray negative MRI brain negative. Ultrasound carotid: Unsure about this evaluation of the stenosis of the right internal carotid artery. Will clarify with Dr Ji today. CSF: High proteins: 72.5. Consider viral etiology. Unlikely due to nonbloody spinal tap alongside normal MRI (temporal lobes would be involved). CSF Gram stain: no growth CMP shows elevated AST: 40. Elevated Ammonia: 42. Concerns for liver toxicity/ low cirrhosis. Liver ultrasound: Hyperechoic mass in the right lobe adjacent to gallbladder fossa region possibly cavernous hemangioma. No cholelithiasis. Small cystic structure on right kidney. Psych consult: Believes that this is more medically induced than psychiatric. Will continue to be consulted as patient improves in his mental status. EEG: Some medication effect/hallucinating. Normal. Hep C IgG antibody reactive. Hepatitis C positive. Liver mass seen on ultrasound possibly cavernous hemangioma. 05/20: Patient's mental status improved. He is alert and oriented to person place and time. Differential diagnosis: 1) Altered mental status now resolved from resolving SIRS 2) Hepatic encephalopathy considering high ammonia levels and positive hepatitis C. Resolving with supportive care and the lactulose. Thiamine:199 (H) B12 normal Folate/MMA still pending. Consider STD: HIV ordered, still pending. RPR negative. Concerns for drug use: UDS was negative on admission. OB drug screen pending. [employer] lifted. Patient would like to be discharged today. Anticipate discharge to home today. (4) Elevated serum creatinine Code(s): R79.89 - Other specified abnormal findings of blood chemistry Status : Resolved Plan: Elevated creatinine and possible oliguria as reported by ED physician Creatinine down from 1.32 to 1.31 yesterday. Improving. Patient states that he is urinating well. CMP pending today. Likely prerenal failure due to dehydration, sepsis. IV fluids: Normal saline at 120ml/hr Continue to monitor I&Os. (5) Elevated troponin Code(s): R74.8 - Abnormal levels of other serum enzymes Status: Resolved Plan: Elevated troponin of 0.11 on admission now decreased 0.09 yesterday. EKG shows normal sinus rhythm with possible ventricular hypertrophy. Continue to treat renal failure with adequate hydration. Continue treatment of sepsis as above. (6) T wave inversion in EKG Code(s): R94.31 - Abnormal electrocardiogram [ECG] [EKG] Status: Resolved Plan: ACS rule out was negative. No electrolyte abnormalities. (7) Nutrition, metabolism, and development symptoms Code(s): R63.8 - Other symptoms and signs concerning food and fluid intake Status: Acute Plan: Fluids: Normal saline at maintenance Electrolytes: Follow-up BMP and replete as needed Nutrition: Regular diet (8) DVT prophylaxis Status: Acute Plan: GI prophylaxis: Not indicated DVT prophylaxis: SCDs - Assessment and Plan 62-year-old male, unknown prior medical history, presenting to ED Via [employer] act by police force for altered mental status, also meets SIRS criteria.
[2018-05-20 11:25] VITALS: PULSE 48
[2018-05-20] MEDS ORDERED: hydrALAZINE 25 MG Tablet PO SCH (13:00)
--- NOTE | 2018-05-20 13:25 | P.DS ---
Date of admission: 05/16/18 11:41 Primary care physician: UNKNOWN Brief History from admission: 62-year-old male, unknown prior medical history, presenting to ED Via [employer] act by police force for altered mental status, also meets SIRS criteria. The following history is obtained from the ED physician and the EMS personnel that received the [employer] act information. The man was apparently found in his car by the police and was significantly altered. He was brought to the ED where he was taken to [facility] on 05/15 for a psychiatric cold. He continued to be psychiatrically unstable and was taken back to the regular ED where repeat labs were drawn, showing he was meeting SIRS criteria. He has continued to be extremely combative and needed restraints. He has been doing bizarre activities as well. DS: Diagnosis - Discharge Diagnosis (1) SIRS (systemic inflammatory response syndrome) Status: Acute (2) Hypertension Status: Acute (3) Altered mental status Status: Acute (4) Elevated serum creatinine Status: Resolved (5) Elevated troponin Status: Resolved (6) T wave inversion in EKG Status: Resolved (7) Nutrition, metabolism, and development symptoms Status: Acute (8) DVT prophylaxis Status: Acute DS: Medications - Discharge Medications Prescriptions: amlodipine [Norvasc] 10 mg PO DAILY 30 Days #30 tab hydralazine 25 mg PO TID 30 Days #90 tab lactulose 30 ml PO BID 3 Days #180 ml lisinopril 40 mg PO DAILY 30 Days #30 tab DS: Summary Hospital Course: 62-year-old male, unknown prior medical history, presented to ED [place] [employer] act by police force for altered mental status, was initially admitted to the psychiatric pod. After 24 hours, his mental status continued to deteriorate, and he was transferred to the general medicine pod of the ED for further evaluation. After transfer patient was alert but not oriented, did not respond to any verbal commands, met SIRS criteria and had RIMMA. Tachypnea over 20 breaths per minute, WBC: 19.5. Lactic Acid of 2.1 H. Decreased urine output over the last 24 hours. Troponin high at 0.11. EKG showed normal sinus rhythm. CT of head was negative. Chest x-ray was negative. MRI of brain showed partially empty sella. Ultrasound of carotids were normal. CSF showed elevated proteins but no on Gram stain. CMP showed elevated ammonia and AST. RPR and GUS was negative. Urine dip showed occasional bacteria. Urine drug screen was negative. TSH and free T4 were normal. Negative influenza. Thiamine and B12 levels normal. patient was placed on IV vancomycin and Zosyn. On day 3 of hospital course, patient continued to be altered and hallucinating. Psychiatry was consulted and thought that he altered mental status was more medically induced and psychiatric. Recommended EEG, which showed some medication effect/patient was hallucinating but was otherwise normal. A more extensive drug screen was completed on patient per psych's recommendations. The results were still pending upon discharge. The patient's ammonia level continued to increase during his hospital stay. Lactulose was added and a liver ultrasound showed hypoechoic mass in the right lobe possibly cavernous hemangioma. Hepatitis panel showed hepatitis C IgG antibodies were reactive. HIV results pending. On day 4 of hospital course, patient became hypertensive with systolic blood pressures in the 200s. Patient's altered mental status was resolving and he was able to inform provider that he had chronic hypertension. Patient was started on 40 mg p.o. daily and hydralazine 10 mg 3 times daily. Blood pressure is still seem to not resolved and amlodipine 10 mg p.o. daily was added. On day 5 of hospital course, patient altered mental status had seemed to resolve. The [employer] act was lifted by psychiatry. Hydralazine was increased from 10 mg to 25 mg 3 times daily in hopes of controlling his blood pressure. Patient was discharged on amlodipine 10 mg p.o. daily, hydralazine 25 mg 3 times daily, lactulose 30 mL twice daily and lisinopril 40 mg p.o. daily with a follow-up to check his CMP in 1 week. - Time Spent with Patient Total time spent providing and/or coordinating discharge services: - Quality: VTE Deep Vein Thrombosis/Pulmonary Embolism Present on Admission: No Exam Vital signs: Vital Signs 05/19/18 16:00 05/19/18 20:00 05/19/18 23:19 Temperature 98.2 F 97.1 F L 98.5 F Pulse Rate 50 L 51 L 55 L Respiratory Rate 16 18 20 Blood Pressure 169/76 H 142/69 H 168/76 H Pulse Oximetry 100 100 99 05/20/18 03:20 05/20/18 04:00 05/20/18 08:00 Temperature 98.4 F 98.3 F Pulse Rate 18 L 46 L 48 L Respiratory Rate 20 17 Blood Pressure 177/84 H 183/87 H Pulse Oximetry 96 99 Intake & Output 05/19/18 05/20/18 05/20/18 18:59 06:59 18:59 Intake Total 1000 / 1000 300 / 300 Balance 1000 / 1000 300 / 300 Weight 76.2 kg Intake: IV 1000 / 1000 NS Inj 1,000 ML @ 120 mls/hr IV 1000 / 1000 .CONT .Q8H20M [facility] Rx#:[id number] Oral 300 / 300 Other: # Voids 4 3 Date of Last Bowel Movement 05/19/18 05/19/18 05/20/18 # Bowel Movements 2 1 Results Procedures completed during hospitalization: none Labs on day of discharge: Labs from last 24 hours 05/19/18 05/19/18 05/19/18 13:05 13:05 13:05 WBC 13.9 H RBC 3.77 L Hgb 13.1 Hct 37.2 L MCV 98.8 MCH 34.8 H MCHC 35.2 RDW 12.4 Plt Count 213 MPV 9.6 Neut % (Auto) 73.2 H Lymph % (Auto) 17.9 [place] % (Auto) 5.8 Eos % (Auto) 2.6 Baso % (Auto) 0.5 Neut # (Auto) 10.2 H Lymph # (Auto) 2.5 [place] # (Auto) 0.8 Eos # (Auto) 0.4 Baso # (Auto) 0.1 WBC Differential . Differential Comment Auto diff final Sodium 147 H Potassium 3.2 L Chloride 113 H Carbon Dioxide 25.8 Anion Gap 8 BUN 20 H Creatinine 1.31 H Estimated GFR 55 L Random Glucose 127 H Calcium 8.3 L Ammonia 40 H Thiamine Methylmalonic Acid Vancomycin Trough 05/19/18 05/18/18 05/17/18 13:05 13:45 06:45 WBC RBC Hgb Hct MCV MCH MCHC RDW Plt Count MPV Neut % (Auto) Lymph % (Auto) [place] % (Auto) Eos % (Auto) Baso % (Auto) Neut # (Auto) Lymph # (Auto) [place] # (Auto) Eos # (Auto) Baso # (Auto) WBC Differential Differential Comment Sodium Potassium Chloride Carbon Dioxide Anion Gap BUN Creatinine Estimated GFR Random Glucose Calcium Ammonia Thiamine 199 H Methylmalonic Acid 0.23 Vancomycin Trough 15.5 H Preliminary micro results at discharge 05/16/18 09:35 Aerobic Blood Culture - Preliminary Blood - Peripheral No growth in 4 days Anaerobic Blood Culture - Preliminary No growth in 4 days 05/16/18 08:50 Aerobic Blood Culture - Preliminary Blood - Peripheral No growth in 4 days Anaerobic Blood Culture - Preliminary No growth in 4 days - Impressions ITS Impressions Carotid Doppler Study 05/16/18 00:00 CONCLUSION: 1. Right Internal Carotid Artery: Findings indicate >70% stenosis, but less than near occlusion. 2. Left Internal Carotid Artery: Findings indicate <50% stenosis. Chest X-Ray 05/16/18 09:13 CONCLUSION: No acute cardiopulmonary disease. There is no evidence of pneumonia. Head CT 05/16/18 09:15 CONCLUSION: 1. Negative noncontrast head CT. Lumbar Puncture Fluoroscopy 05/16/18 10:18 CONCLUSION: 1. Uncomplicated fluoroscopically guided lumbar puncture. Abdomen X-Ray 05/17/18 00:00 CONCLUSION: Status post multilevel lumbar fusion with no MR incompatible hardware identified. Head MRI 05/17/18 00:00 CONCLUSION: 1. Minimal periventricular white matter changes otherwise negative for acute process. 2. Partially empty sella 3. Moderate motion artifact is present. Liver Ultrasound 05/17/18 00:00 CONCLUSION: 1. Annular hyperechoic mass in the liver which is nonspecific but may represent a cavernous hemangioma. This could be further evaluated with outpatient CT or MR with contrast. 2. Small atrophic right kidney with cortical thinning and increased echogenicity characteristic of medical renal disease. There is a small benign- appearing cystic structure. 3. The gallbladder is contracted and appearance with mild parents gallbladder wall thickening. There is no evidence of cholelithiasis. 4. Suboptimal limited study. Discharge Plan - Discharge Disposition Patient Disposition: 01 Discharge Home - Discharge Condition Condition: Stable - Discharge Order Discharge Orders: Discharge Order (Routine); Ordered 05/20/18 Ordered By: Meredith Chamberlain - Physicians Team Primary Care Provider: UNKNOWN, Attending Provider: Jameel Wadsworth Other Providers: Med Pereyra MD
== END 2018-05-20 11:13 | disposition home or self-care (01) ==
LOC: NEPD 00:28 → NEDA 05-16 11:41 → N04 05-16 13:55
PROVIDERS: ADMIT Family Medicine; ATTEND Family Medicine